=== PATIENT | female | born 1950 | race Caucasian/White ===

== ENCOUNTER 2019-11-23 11:24 | Emergency (ER) | payer BC, SELFPAY ==
[2019-11-23 11:29] VITALS: BP 155/64; PULSE 84; RESP 18; TEMP 36.8; O2SAT 100
[2019-11-23 11:35] VITALS: BP 121/79; PULSE 76; RESP 20; TEMP 36.9; O2SAT 98
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
[2019-11-23] MEDS: ONDANSETRON HCL ODT 4 MG TABLET PO (12:03)
[2019-11-23] MEDS: SILVER SULFADIAZINE 1% CR 50 GM JAR (*BKC) 1 APPLIC TOPICAL (12:05)
[2019-11-23] MEDS: TETANUS,DIPHTHERIA,AC PERTUSSIS ADULT (0.5 ML) BOOSTRIX IM (12:05)
[2019-11-23 13:03] VITALS: BP 121/59; PULSE 58; RESP 18; TEMP 36.9; O2SAT 98
== END 2019-11-23 13:04 | disposition home or self-care (01) ==
PROVIDERS: Emergency Provider General Practice
DX: T23.232A Burn of second degree of multiple left fingers (nail), not including thumb, initial encounter (principal); T31.0 Burns involving less than 10% of body surface; Z79.82 Long term (current) use of aspirin; I48.91 Unspecified atrial fibrillation; Z87.440 Personal history of urinary (tract) infections; Z23 Encounter for immunization; X10.2XXA Contact with fats and cooking oils, initial encounter
CPT/HCPCS: 16000; 16020; 90471; 90715; 99283; A9270

== ENCOUNTER 2020-07-26 10:18 | Outpatient (CLI) | payer BC, SELFPAY ==
--- NOTE | ~2020-07-26 | MM_ITS ---
EXAMINATION: MM screening yeimi BI w peyman HISTORY: Screening mammogram TECHNIQUE: Craniocaudal and mediolateral oblique 3-D tomosynthesis images were obtained and synthetic 2-D images were generated. CAD analysis was submitted and interpreted. COMPARISON: 06/17/2019, 06/11/2018, 06/06/2017 bilateral digital screening mammogram examinations BREAST PARENCHYMAL COMPOSITION: There are scattered areas of fibroglandular density. FINDINGS: There is asymmetry in the posterior aspect of the inner medial left breast on CC projection . Diagnostic left mammogram is recommended, with ultrasound if required. Otherwise there is no evidence of suspicious mass, calcification, or architectural distortion to sugg est malignancy in either breast. There has been no suspicious interval change. IMPRESSION: 1. Left breast asymmetry 2. Diagnostic left mammogram is recommended, with ultrasound if required. BI-RADS Category 0: Incomplete: Needs additional imaging evaluation. Reviewed, dictated and finalized at location A.
== END 2020-07-26 10:19 | disposition home or self-care (01) ==
LOC: ANHIMG 10:20
PROVIDERS: PCP Internal Medicine; Visit Provider Obstetrics & Gynecology
DX: Z12.31 Encounter for screening mammogram for malignant neoplasm of breast (principal); R92.8 Other abnormal and inconclusive findings on diagnostic imaging of breast
CPT/HCPCS: 77063; 77067

== ENCOUNTER 2020-08-17 12:09 | Outpatient (CLI) | payer BC, SELFPAY ==
--- NOTE | ~2020-08-17 | MM_ITS ---
EXAMINATION: MM diagnostic mammo unilat LT HISTORY: Left breast asymmetry on screening mammogram TECHNIQUE: Additional 3-D tomosynthesis images of the left breast were performed and synthetic 2-D im ages were generated. CAD analysis was submitted and interpreted. COMPARISON: 06/17/2019, 06/11/2018, 06/06/2017 FINDINGS: No persistent asymmetry is identified with spot compression views of the breast. There is a return to baseline fibroglandular appearance. IMPRESSION: 1. No mammographic evidence of malignancy. 2. Recommend routine screening mammography in one year. BI-RADS Category 1: Negative Reviewed, dictated and finalized at location A. EDICAL MANAGER
== END 2020-08-17 12:10 | disposition home or self-care (01) ==
LOC: ANHIMG 12:13
PROVIDERS: PCP Internal Medicine; Visit Provider Obstetrics & Gynecology
DX: R92.8 Other abnormal and inconclusive findings on diagnostic imaging of breast (principal)
CPT/HCPCS: 77065

== ENCOUNTER 2021-08-09 15:22 | Outpatient (CLI) | payer BC, SELFPAY ==
--- NOTE | ~2021-08-09 | MM_ITS ---
EXAMINATION: MM screening eyimi BI w peyman HISTORY: Screening TECHNIQUE: Craniocaudal and mediolateral oblique 3-D tomosynthesis images were obtained and synthetic 2-D images were generated. CAD analysis was submitted and interpreted. COMPARISON: Comparison to multiple prior studies sequentially, with oldest reviewed study dated 04/04. BREAST PARENCHYMAL COMPOSITION: The breasts are heterogeneously dense, which may obscure small masses . FINDINGS: There is no evidence of suspicious mass, calcification, or architectural distortion to sugg est malignancy in either breast. There has been no suspicious interval change. IMPRESSION: 1. No mammographic evidence of malignancy. 2. Recommend routine screening mammography in one year. BI-RADS Category 1: Negative Reviewed, dictated and finalized at location A.
== END 2021-08-09 15:23 | disposition home or self-care (01) ==
LOC: ANHIMG 15:27
PROVIDERS: PCP Internal Medicine; Visit Provider Obstetrics & Gynecology
DX: Z12.31 Encounter for screening mammogram for malignant neoplasm of breast (principal)
CPT/HCPCS: 77063; 77067

== ENCOUNTER 2021-12-31 11:42 | Emergency (ER) | payer BC, SELFPAY ==
--- NOTE | ~2021-12-31 | CT_ITS ---
EXAMINATION: CT brain wo con DATE: 12/31/2021 12:24 INDICATION: Near syncope. Left-sided ear pressure. Headache and dizziness. Blurred vision. TECHNIQUE: Computed tomography (CT) of the head was performed without intravenous contrast. Sagittal and coronal reconstructions were performed. The mA was adjusted according to patient size. Iterative reconstruction technique was employed. The dose-length product was 605.33 mGy-cm. COMPARISON: None FINDINGS: No acute intracranial hemorrhage, acute infarction or abnormal extra axial fluid collection. Ventricl es are normal and symmetric. No mass/mass effect. The orbits, paranasal sinuses and mastoid air cells are normal. IMPRESSION: 1. Normal aging brain. No acute intracranial process. Reviewed, dictated and finalized at location A.
[2021-12-31 11:44] VITALS: BP 153/86; PULSE 65; RESP 16; TEMP 37; O2SAT 100
[2021-12-31 12:07] VITALS: BP 159/76; PULSE 62; RESP 14; O2SAT 98
--- NOTE | 2021-12-31 12:12 | ECG_ITS ---
Measurements Intervals [place] Rate: 67 P: 7 NE: 144 QRS: -1 QRSD: 92 T: 19 QT: 406 QTc: 429 Interpretive Statements SINUS RHYTHM NORMAL ECG NO PREVIOUS ECG AVAILABLE FOR COMPARISON Electronically Signed On 12-31-2021 13:20:46 CDT by Brooks Maldonado M.D.
--- NOTE | 2021-12-31 12:44 | ED.GENADULT ---
HPI - General Adult General Chief complaint: Unspecified Stated complaint: near syncope Time Seen by Provider: 12/31/21 12:06 Source: patient Mode of arrival: ambulatory Limitations: no limitations History of Present Illness HPI narrative: Patient is a 71-year-old female complaining of on and off near syncopal episode x4 days. Patient states that usually it associated with activity, like this morning she was at the gym and suddenly she felt dizzy. Denies any syncopal episodes. Patient states that she has been having sinus congestion and frontal and maxillary sinus tenderness for the past week. Patient also complaining of left-sided ear pain negative for discharge. Patient denies any headache, speech or visual disturbance, focal weakness or numbness, unsteady gait, chest pain, shortness of breath, abdominal pain, nausea, vomiting, diarrhea, fever or chills. Patient currently denies any symptoms. Patient states that she had a carotid ultrasound within the past few years. Patient also states that she recently had an echo done. Prior to discharge patient just mentioned that while working out she did hit the back of her head on work-up bar 4 to 5 days ago. Related Data Home Medications Medication Instructions Recorded Confirmed alprazolam 0.5 mg PO PRN 11/23/19 11/23/19 aspirin [Aspirin Low Dose] 81 mg PO DAILY 11/23/19 11/23/19 diltiazem HCl [Cartia XT] 180 mg PO DAILY 11/23/19 11/23/19 doxycycline monohydrate 100 mg PO BID 11/23/19 11/23/19 flecainide 50 mg PO DAILY 11/23/19 11/23/19 lisinopril 10 mg PO DAILY 11/23/19 11/23/19 Allergies Allergy/AdvReac Type Severity Reaction Status Date / Time adhesive Allergy Mild Redness of Verified 11/23/19 11:56 Skin ciprofloxacin Allergy Unknown Palpitation Verified 11/23/19 11:57 s clarithromycin Allergy Unknown Palpitation Verified 11/23/19 11:56 s metronidazole Allergy Unknown Palpitation Verified 11/23/19 11:57 s amiodarone Allergy Dizziness Verified 12/31/21 12:10 prednisone Allergy Palpitation Verified 12/31/21 12:11 s morphine AdvReac Mild SEVERE Verified 01/23/19 18:24 NAUSEA AND VOMITING Review of Systems Review of Systems: All systems reviewed & are unremarkable except as noted in HPI and below Constitutional: Constitutional: Denies body ache(s), Denies chills, Denies excessive sweating, Denies fatigue, Denies fever(s), Denies headache(s), Denies lethargy, Denies malaise, Denies weakness and Denies weight loss Eyes: Eyes: Denies blurry vision, Denies change in vision and Denies loss of vision ENT: Denies dizziness, Denies ear discharge, Denies headache(s), Denies lip swelling, Denies epistaxis, Denies nasal congestion, Denies neck pain, Denies throat swelling and Denies tongue swelling Cardiovascular: Cardiovascular: Denies chest pain, Denies chest pain at rest, Denies chest pain with activity, Denies diaphoresis, Denies rapid heart rate, Denies edema, Denies irregular heart rhythm, Denies lightheadedness, Denies palpitations, Denies dyspnea and Denies dyspnea on exertion Respiratory: Respiratory: Denies chest congestion, Denies cough, Denies hemoptysis, Denies dyspnea and Denies dyspnea on exertion Gastrointestinal: Gastrointestinal: Denies abdominal pain, Denies melena, Denies hematochezia, Denies diarrhea, Denies nausea, Denies vomiting and Denies hematemesis Musculoskeletal: Musculoskeletal: Denies abnormal gait, Denies deformity, Denies joint swelling, Denies limited range of motion, Denies neck pain and Denies numbness Neurologic: Denies Abnormal speech present, Denies abnormal gait, Denies confusion, Denies headache(s), Denies focal weakness, Denies loss of vision, Denies numbness, Denies Other visual disturbances, Denies Sensory deficit (Neuro) and Denies weakness Psychiatric: Psychiatric: Denies confusion, Denies depression, Denies auditory hallucinations, Denies homicidal ideation and Denies suicidal ideation Endocrine: Endocrine:
[2021-12-31 13:12] LABS: Basophils Absolute Auto 0.1 K/mm3 (0.0-0.1); Basophils Percent Auto 1.1 % (0.2-1.2); Eosinophils Percent Auto 0.4 % (0-4.4); Hematocrit 45.2 % (37.0-47.0); Hemoglobin 14.5 g/dL (12.0-15.0); Immature Granulocyte Absolute 0.02 K/mm3 (0.00-0.031); Immature Granulocyte Percent A 0.4 % (0-0.5); Lymphocytes Percent Auto 30.4 % (18.3-44.2); Mean Corpuscular HGB Conc 32.1 g/dl (32-36); Mean Corpuscular Hemoglobin 30.7 pg (26-34); Mean Corpuscular Volume 95.8 fl (80-100); Mean Platelet Volume 10.3 fl (7.4-10.4); Monocytes Absolute Auto 0.4 K/mm3 (0.1-0.6); Monocytes Percent Auto 7.8 % (2.6-8.5); Neutrophils Absolute Auto 2.8 K/mm3 (1.3-6.7); Neutrophils Percent Auto 59.9 % (45.5-73.1); Platelet Count Result 210 k/mm3 (150-375); Red Blood Count 4.72 M/mm3 (4.2-5.4); Red Cell Distribution Width 12.5 % (11.5-14.5); White Blood Count 4.6 K/mm3 (4.5-10.0)
[2021-12-31 13:27] LABS: INR 0.9
[2021-12-31 13:28] LABS: Partial Thromboplastin Time 27.2 SECONDS (22.3-36.8)
[2021-12-31 13:32] LABS: Alanine Aminotransferase 25 U/L (4-35); Albumin Level 4.6 g/dL (3.5-5.1); Alkaline Phosphatase 138 U/L (38-126); Anion Gap 7 mmol/L (8-16); Aspartate Amino Transferase 32 U/L (14-36); Bilirubin,Total 0.6 mg/dL (0.2-1.3); Blood Urea Nitrogen 10 mg/dL (7-17); Calcium 9.4 mg/dL (8.4-10.2); Carbon Dioxide 28 mmol/L (22-30); Chloride 105 mmol/L (98-107); Estimated CRCL calculation 64 ml/min; Estimated Glomerular Filt Rate > 60; Glucose 117 mg/dL (65-110); Potassium 3.9 mmol/L (3.4-5.0); Sodium 140 mmol/L (137-145)
[2021-12-31 13:43] LABS: Troponin I < 0.012 ng/mL (0.000-0.034)
[2021-12-31 14:12] VITALS: BP 164/79; PULSE 61
[2021-12-31 14:13] VITALS: BP 182/90; PULSE 64
[2021-12-31 14:15] VITALS: BP 186/112; PULSE 86
[2021-12-31] MEDS: SODIUM CHLORIDE 0.9% IV 1,000 ML 999 ML IV CONT (14:55)
[2021-12-31 15:29] VITALS: BP 176/82
== END 2021-12-31 15:35 | disposition home or self-care (01) ==
PROVIDERS: Emergency Provider Emergency Medicine; PCP Internal Medicine
DX: S06.0X0A Concussion without loss of consciousness, initial encounter (principal); R42 Dizziness and giddiness; I48.91 Unspecified atrial fibrillation; F41.9 Anxiety disorder, unspecified; Z87.440 Personal history of urinary (tract) infections; W22.8XXA Striking against or struck by other objects, initial encounter
CPT/HCPCS: 36415; 70450; 80053; 84484; 85025; 85610; 85730; 93005; 96360; 99284; J7030

== ENCOUNTER 2022-10-02 10:07 | Outpatient (CLI) | payer BC, SELFPAY ==
--- NOTE | ~2022-10-02 | MM_ITS ---
EXAMINATION: MM screening yeimi BI w peyman HISTORY: Screening mammogram TECHNIQUE: Craniocaudal and mediolateral oblique 3-D tomosynthesis images were obtained and synthetic 2-D images were generated. CAD analysis was submitted and interpreted. COMPARISON: 08/2021, 08/17/2020, 07/26/2020 bilateral screening mammogram examinations BREAST PARENCHYMAL COMPOSITION: There are scattered areas of fibroglandular density. FINDINGS: There is no evidence of suspicious mass, calcification, or architectural distortion to sugg est malignancy in either breast. There has been no suspicious interval change. IMPRESSION: 1. No mammographic evidence of malignancy. 2. Recommend routine screening mammography in one year. BI-RADS Category 1: Negative Reviewed, dictated and finalized at location A. MINER BLASTING
== END 2022-10-02 10:08 | disposition home or self-care (01) ==
LOC: ANHIMG 10:08
PROVIDERS: PCP Internal Medicine; Visit Provider Obstetrics & Gynecology
DX: Z12.31 Encounter for screening mammogram for malignant neoplasm of breast (principal)
CPT/HCPCS: 77063; 77067

== ENCOUNTER 2022-10-15 18:18 | Emergency (ER) | payer BC, SELFPAY ==
[2022-10-15 18:47] VITALS: BP 220/100; PULSE 88; RESP 18; TEMP 36.4; O2SAT 100
[2022-10-15 18:57] VITALS: BP 155/90; PULSE 73; O2SAT 97
[2022-10-15 19:55] VITALS: BP 150/79; PULSE 71; RESP 16; O2SAT 100
--- NOTE | 2022-10-15 19:57 | ECG_ITS ---
Measurements Intervals [place] Rate: 80 P: 41 CT: 166 QRS: -11 QRSD: 85 T: 8 QT: 368 QTc: 426 Interpretive Statements SINUS RHYTHM LEFT VENTRICULAR HYPERTROPHY BASELINE ARTIFACT- I, II, AVR BORDERLINE ECG COMPARED TO ECG 12/31/2021 12:39:14 NO SIGNIFICANT CHANGES Electronically Signed On 10-16-2022 7:54:16 AUTOMOTIVE SERVICE MANAGEMENT TEACHER by Donavon Sin D.O.
[2022-10-15 20:14] LABS: Basophils Percent Auto 0.5 % (0.2-1.2); Eosinophils Percent Auto 0.5 % (0-4.4); Hematocrit 43.6 % (37.0-47.0); Hemoglobin 14.2 g/dL (12.0-15.0); Immature Granulocyte Absolute 0.03 K/mm3 (0.00-0.031); Immature Granulocyte Percent A 0.5 % (0-0.5); Lymphocytes Absolute Auto 1.51 K/mm3 (0.9-3.2); Lymphocytes Percent Auto 27.2 % (18.3-44.2); Mean Corpuscular HGB Conc 32.6 g/dl (32-36); Mean Corpuscular Hemoglobin 31.2 pg (26-34); Mean Corpuscular Volume 95.8 fl (80-100); Mean Platelet Volume 9.9 fl (7.4-10.4); Monocytes Absolute Auto 0.5 K/mm3 (0.1-0.6); Monocytes Percent Auto 8.6 % (2.6-8.5); Neutrophils Absolute Auto 3.5 K/mm3 (1.3-6.7); Neutrophils Percent Auto 62.7 % (45.5-73.1); Platelet Count Result 224 k/mm3 (150-375); Red Blood Count 4.55 M/mm3 (4.2-5.4); Red Cell Distribution Width 12.6 % (11.5-14.5); White Blood Count 5.6 K/mm3 (4.5-10.0)
[2022-10-15 20:29] LABS: Anion Gap 7 mmol/L (8-16); Blood Urea Nitrogen 16 mg/dL (7-17); Calcium 9.4 mg/dL (8.4-10.2); Carbon Dioxide 29 mmol/L (22-30); Chloride 106 mmol/L (98-107); Estimated CRCL calculation 63 ml/min; Estimated Glomerular Filt Rate > 60; Glucose 102 mg/dL (65-110); Potassium 4.2 mmol/L (3.4-5.0); Sodium 142 mmol/L (137-145)
--- NOTE | 2022-10-15 20:29 | ED.RECABL ---
HPI - Recheck/Abnormal Lab/Rx General Chief Complaint: Recheck/Abnormal Lab/Rx Stated Complaint: ELEVATED BP Time Seen by Provider: 10/15/22 19:06 History of Present Illness HPI narrative: Patient is a 72-year-old female with a history of A. fib status post ablation, hypertension presenting with high blood pressure. Patient states that she started feeling funny earlier this evening so she became concerned that her blood pressure was high. She tried to measure her blood pressure at home but the cuff would not work. States that she became concerned that it was so high that it could not read it. States that she took her Xanax and drink some water and focused on her breathing to try to calm herself down. Unfortunately, she continued to feel funny and her blood pressure cuff would not measure her blood pressures so they came in for evaluation. Currently, the patient states that she feels fine. She denies any episodes of chest pain, shortness of breath, palpitations, lightheadedness, numbness or weakness, speech changes, confusion. Related Data Home Medications Medication Instructions Recorded Confirmed alprazolam 0.5 mg tablet 0.5 mg PO PRN 11/23/19 06/04/22 aspirin 81 mg tablet,delayed 81 mg PO DAILY 11/23/19 06/04/22 release (Alanna Low Dose Aspirin) diltiazem HCl 180 mg 180 mg PO DAILY 11/23/19 06/04/22 capsule,extended release 24 hr (Cartia XT) flecainide 50 mg tablet 50 mg PO DAILY 11/23/19 06/04/22 lisinopril 10 mg tablet 10 mg PO DAILY 11/23/19 06/04/22 Allergies Allergy/AdvReac Type Severity Reaction Status Date / Time adhesive Allergy Mild Redness of Verified 10/15/22 19:01 Skin ciprofloxacin Allergy Unknown Palpitation Verified 10/15/22 19:01 s clarithromycin Allergy Unknown Palpitation Verified 10/15/22 19:01 s metronidazole Allergy Unknown Palpitation Verified 10/15/22 19:01 s amiodarone Allergy Dizziness Verified 10/15/22 19:01 prednisone Allergy Palpitation Verified 10/15/22 19:01 s morphine AdvReac Mild SEVERE Verified 10/15/22 19:01 NAUSEA AND VOMITING Review of Systems Review of Systems: All systems reviewed & are unremarkable except as noted in HPI and below PMFSH Past Medical History Medical History A-fib Anxiety Breast lesion Diverticulitis Hernia Hx of long-term use of blood thinners aspirin 81mg Hypertension Screening mammogram, encounter for Seasonal allergies UTI (urinary tract infection) Surgical History Surgical History H/O foot surgery bilateral H/O hernia repair (~1980) double hernia repair History of breast biopsy 2000 benign 2006 benign, foreign object removed (wire from needle bx in 200) 2008 benign History of cardiac radiofrequency ablation (~2012) x2 History of cholecystectomy History of tubal ligation (~1980) Hx of section x2 Family History Family History Mother Malignant tumor of ovary Malignant tumor of thyroid gland Cirrhosis of liver Social History Social History Smoking status: Never smoker Alcohol intake: never Substance use: never Substance use type: does not use Additional living arrangements comments: Gender identity (if verbalized by the patient): Female Sexual Orientation (if Verbalized by the Patient): Straight or Heterosexual Exam Narrative: GENERAL: Well-appearing, well-nourished, and in no acute distress. HEAD: Normocephalic, atraumatic. EYES: PERRLA and EOMI. ENT: Nares clear, no rhinorrhea or epistaxis. Mucous membranes moist. NECK: Supple. CHEST: Clear to auscultation. No respiratory distress. HEART: Regular rate and rhythm. No murmur heard. Normal peripheral pulses. ABDOMEN: Soft, nontender, nondistended, normal active bowel sound
[2022-10-15 20:41] LABS: Troponin I < 0.012 ng/mL (0.000-0.034)
== END 2022-10-15 22:00 | disposition home or self-care (01) ==
PROVIDERS: Emergency Provider Emergency Medicine; PCP Internal Medicine
DX: I10 Essential (primary) hypertension (principal); I48.91 Unspecified atrial fibrillation; F41.9 Anxiety disorder, unspecified; Z79.01 Long term (current) use of anticoagulants
CPT/HCPCS: 36415; 80048; 84484; 85025; 93005; 99284

== ENCOUNTER 2022-11-03 18:50 | Emergency (ER) | payer BC, SELFPAY ==
[2022-11-03] VITALS (8 sets, daily range): BP systolic 152; BP diastolic 74; PULSE 90; RESP 18; TEMP 37.2; O2SAT 95–100
--- NOTE | ~2022-11-03 | CT_ITS ---
EXAMINATION: CT abdomen pelvis w con DATE: 11/03/2022 23:31 INDICATION: Left lower quadrant abdominal pain. TECHNIQUE: Computed tomography (CT) of the abdomen and pelvis was performed with 100 mL Omnipaque 350 intravenous contrast. Automated exposure control and iterative reconstruction technique were employe d. The dose-length product was 1099.49 mGy-cm. COMPARISON: CT abdomen and pelvis 01/23/2019 FINDINGS: The visualized portions of the lung bases demonstrate mild atelectasis. No pleural effusion . The heart size is normal. No pericardial effusion. There is a small sliding hiatal hernia. The live r, spleen, pancreas, adrenal glands, and kidneys are normal. There are scattered diverticula in the c olon. There is wall thickening of proximal sigmoid colon with fat stranding centered around a diverti culum, consistent with diverticulitis. There are no dilated loops of bowel. The appendix is normal. T here are no pathologically enlarged lymph nodes. There is no free intraperitoneal fluid. There is mod erate thoracic and lumbar spondylosis. IMPRESSION: 1. Acute sigmoid diverticulitis. No perforation or abscess. Reviewed, dictated and finalized at location A. [employer]
[2022-11-03 21:52] LABS: Basophils Percent Auto 0.4 % (0.2-1.2); Eosinophils Percent Auto 0.2 % (0-4.4); Hematocrit 40.9 % (37.0-47.0); Hemoglobin 13.6 g/dL (12.0-15.0); Immature Granulocyte Absolute 0.03 K/mm3 (0.00-0.031); Immature Granulocyte Percent A 0.3 % (0-0.5); Lymphocytes Absolute Auto 2.34 K/mm3 (0.9-3.2); Lymphocytes Percent Auto 26.3 % (18.3-44.2); Mean Corpuscular HGB Conc 33.3 g/dl (32-36); Mean Corpuscular Hemoglobin 31.9 pg (26-34); Mean Platelet Volume 11.6 fl (7.4-10.4); Monocytes Absolute Auto 1.1 K/mm3 (0.1-0.6); Monocytes Percent Auto 11.8 % (2.6-8.5); Neutrophils Absolute Auto 5.4 K/mm3 (1.3-6.7); Platelet Count Result 262 k/mm3 (150-375); Red Blood Count 4.26 M/mm3 (4.2-5.4); Red Cell Distribution Width 13.1 % (11.5-14.5); White Blood Count 8.9 K/mm3 (4.5-10.0)
[2022-11-03 22:01] LABS: Appearance Urine Clear (Clear); Bilirubin Urine Negative (Negative); Blood Urine Negative (Negative); Color Urine Yellow (Yellow); Glucose Urine UA Negative (Negative); Ketones Urine Negative (Negative); Leukocyte Esterase Ur Trace LEU/UL (Negative); Nitrate Urine Negative (Negative); Protein Urine Negative (Negative); Specific Grav Ur <= 1.005 (1.001-1.035); Urobilinogen Urine 0.2 mg/dL (<2.0); pH Urine 5.5 (5.0-9.0)
--- NOTE | 2022-11-03 22:02 | ED.ABDPAIN ---
HPI - Abdominal Pain General Chief Complaint: Abdominal Pain Stated Complaint: abdominal cramping Time Seen by Provider: 11/03/22 21:31 History of Present Illness HPI narrative: 72-year-old female presented to the emergency department for evaluation of left lower quadrant pain. Patient reports that the pain started last night. Patient reports that approximately 2:30 AM when she was rolling over she had onset of a sharp left lower quadrant pain. Patient did take Tylenol for pain control without significant improvement. Patient stated the pain was persistent throughout the day today. Patient denies any prior history of kidney stones and denies any hematuria. Patient reports having a colonoscopy recently by Dr. Shepard at [facility] in August. Patient states she had no evidence of diverticular disease or polyps. Related Data Home Medications Medication Instructions Recorded Confirmed alprazolam 0.5 mg tablet 0.5 mg PO PRN 11/23/19 06/04/22 aspirin 81 mg tablet,delayed 81 mg PO DAILY 11/23/19 06/04/22 release (Alanna Low Dose Aspirin) diltiazem HCl 180 mg 180 mg PO DAILY 11/23/19 06/04/22 capsule,extended release 24 hr (Cartia XT) flecainide 50 mg tablet 50 mg PO DAILY 11/23/19 06/04/22 lisinopril 10 mg tablet 10 mg PO DAILY 11/23/19 06/04/22 Allergies Allergy/AdvReac Type Severity Reaction Status Date / Time adhesive Allergy Mild Redness of Verified 10/15/22 19:01 Skin ciprofloxacin Allergy Unknown Palpitation Verified 10/15/22 19:01 s clarithromycin Allergy Unknown Palpitation Verified 10/15/22 19:01 s metronidazole Allergy Unknown Palpitation Verified 10/15/22 19:01 s amiodarone Allergy Dizziness Verified 10/15/22 19:01 prednisone Allergy Palpitation Verified 10/15/22 19:01 s morphine AdvReac Mild SEVERE Verified 10/15/22 19:01 NAUSEA AND VOMITING Review of Systems Review of Systems: CONSTITUTIONAL: Denies fever, chills, or sweats. EYES: Denies visual changes, redness, or discharge. ENT: Denies rhinorrhea, congestion, sore throat, or otalgia. CARDIOVASCULAR: Denies chest pain, palpitations, or edema. RESPIRATORY: Denies cough or dyspnea. GASTROINTESTINAL: See HPI GENITOURINARY: Denies dysuria or hematuria. SKIN: Denies rash or itching. MUSCULOSKELETAL: Denies back pain, joint pain, or myalgia. NEUROLOGIC: Denies headache, numbness, or weakness. PMFSH Past Medical History Medical History A-fib Anxiety Breast lesion Diverticulitis Hernia Hx of group home use of blood thinners aspirin 81mg Hypertension Screening mammogram, encounter for Seasonal allergies UTI (urinary tract infection) Surgical History Surgical History H/O foot surgery bilateral H/O hernia repair (~1980) double hernia repair History of breast biopsy 1999 benign 2006 benign, foreign object removed (wire from needle bx in 200) 2008 benign History of cardiac radiofrequency ablation (~2012) x2 History of cholecystectomy History of tubal ligation (~1980) Hx of section x2 Family History Family History Mother Malignant tumor of ovary Malignant tumor of thyroid gland Cirrhosis of liver Social History Social History Smoking status: Never smoker Alcohol intake: never Substance use: never Substance use type: does not use Living arrangements: other Additional living arrangements comments: Occupation/Education: retired Gender identity (if verbalized by the patient): Female Sexual Orientation (if Verbalized by the Patient): Straight or Heterosexual Exam Narrative: APPEARANCE: Well appearing, no pain, no distress, well-nourished. HEAD: normocephalic, atraumatic. EYES: PERRLA/EOMI, conjunctivae clear. NOSE: Normal no
[2022-11-03 22:07] LABS: RBC Urine 0-2 /hpf (0-2); Squamous Epithelial Cell Urine Rare /hpf (Few); WBC Urine 0-3 /hpf
[2022-11-03 22:08] LABS: Add Urine Microscopic? YES
[2022-11-03 22:36] LABS: Alanine Aminotransferase 85 U/L (6-35); Albumin Level 4.1 g/dL (3.5-5.1); Alkaline Phosphatase 143 U/L (38-126); Anion Gap 6 mmol/L (8-16); Aspartate Amino Transferase 82 U/L (14-36); Bilirubin,Total 0.9 mg/dL (0.2-1.3); Blood Urea Nitrogen 16 mg/dL (7-17); Calcium 8.8 mg/dL (8.4-10.2); Carbon Dioxide 28 mmol/L (22-30); Chloride 105 mmol/L (98-107); Estimated Glomerular Filt Rate > 60; Glucose 99 mg/dL (65-110); Lipase 122 U/L (23-300); Sodium 139 mmol/L (137-145)
[2022-11-04] VITALS: PULSE 82; O2SAT 96
[2022-11-04] MEDS: AMOXICILLIN/CLAVULANATE K 875-125 MG TAB 1 TABLET PO
== END 2022-11-04 00:10 | disposition home or self-care (01) ==
PROVIDERS: Emergency Provider Emergency Medicine; PCP Internal Medicine
DX: K57.32 Diverticulitis of large intestine without perforation or abscess without bleeding (principal); I48.91 Unspecified atrial fibrillation; I10 Essential (primary) hypertension; F41.9 Anxiety disorder, unspecified; Z87.440 Personal history of urinary (tract) infections; Z79.82 Long term (current) use of aspirin
CPT/HCPCS: 36415; 74177; 80053; 81001; 83690; 85025; 96365; 99284; A9270; J0131; Q9967

== ENCOUNTER 2024-01-09 14:28 | Outpatient (CLI) | payer BC, SELFPAY ==
--- NOTE | ~2024-01-09 | MM_ITS ---
EXAMINATION: MM screening yeimi BI w peyman HISTORY: Screening TECHNIQUE: Craniocaudal and mediolateral oblique 3-D tomosynthesis images were obtained and synthetic 2-D images were generated. CAD analysis was submitted and interpreted. COMPARISON: Comparison to multiple prior studies sequentially, with oldest reviewed study dated 03/2018. BREAST PARENCHYMAL COMPOSITION: Dense: The breasts are heterogeneously dense, which may obscure small masses FINDINGS: There is no evidence of suspicious mass, calcification, or architectural distortion to sugg est malignancy in either breast. There has been no suspicious interval change. IMPRESSION: 1. No mammographic evidence of malignancy. 2. Recommend routine screening mammography in one year. BI-RADS Category 1: Negative Reviewed, dictated and finalized at location A.
== END 2024-01-09 14:29 | disposition home or self-care (01) ==
LOC: ANHIMG 14:32
PROVIDERS: PCP Internal Medicine; Visit Provider Obstetrics & Gynecology
DX: Z12.31 Encounter for screening mammogram for malignant neoplasm of breast (principal); Z78.0 Asymptomatic menopausal state
CPT/HCPCS: 77063; 77067

== ENCOUNTER 2024-01-09 14:40 | Outpatient (CLI) | payer BC, SELFPAY ==
--- NOTE | ~2024-01-09 | DEXA_ITS ---
Bone Density Report Name: NGOZI MCGHEE Age: 73 Sex: Female Ethnicity: White Date of : 1950 Indication: postmenopausal; screening for osteoporosis; height loss; history of glucocorticoids; Referring Provider: UNKNOWN, UNKNOWN Study: Bone densitometry was performed. Exam Date: January 09, 2024 Accession number: [id number] Bone Density: Region BMD T-score Z-score Classification AP Spine(L1-L4) 1.117 0.6 2.8 Normal Femoral Neck (Left) 0.783 -0.6 1.3 Normal Total Hip (Left) 1.047 0.9 2.4 Normal Femoral Neck (Right) 0.876 0.2 2.1 Normal Total Hip (Right) 1.087 1.2 2.8 Normal Total Hip Mean 1.067 1.1 2.6 Normal World Health Organization criteria for BMD impression classify patients as: Normal (T-score at or above -1.0), Osteopenia (T-score between -1.0 and -2.5), or Osteoporosis (T-score at or below -2.5). 10-year Fracture Risk: FRAX not reported because: All T-scores for Spine Total, Hip Total, Femoral Neck at or above -1.0 Clinical Information Provided by Patient: Has taken Glucocorticoids Has used the following medications: Vitamin D, Calcium Patient maximum height was 64.5 Menopause Age: 40 Onset of menses at age 13 Number of children 2 Impression: The patient has normal bone mass. The patient has risk factors, including: history of glucocorticoid therapy. Discussion: BONE DENSITY IS ABOVE THE MINIMUM DESIRABLE LEVEL AT ALL SKELETAL SITES TESTED. This patient?s bone mineral density is above the minimum desirable level (T-score -1.0 or better) at all sites measured. The patient should follow a healthful lifestyle (good nutrition with adequate calcium and vitamin D, and appropriate weight-bearing exercise). Follow-Up: Consider repeating this study in 5 years or sooner if there is some new clinical indication. Reported by: LAURENT on 01/09/2024 3:28:00 PM. Reviewed, dictated and finalized at location AAura VU
== END 2024-01-09 14:41 | disposition home or self-care (01) ==
LOC: ANHIMG 14:40
PROVIDERS: PCP Internal Medicine; Visit Provider Internal Medicine
DX: Z13.820 Encounter for screening for osteoporosis (principal); R29.890 Loss of height; Z78.0 Asymptomatic menopausal state; Z92.241 Personal history of systemic steroid therapy
CPT/HCPCS: 77080

== ENCOUNTER 2024-02-09 22:19 | Emergency (ER) | payer BC, SELFPAY ==
[2024-02-09 22:21] VITALS: BP 152/74; PULSE 74; RESP 16; TEMP 36.4; O2SAT 99
--- NOTE | 2024-02-09 22:27 | ECG_ITS ---
SEE SCANNED COPY FOR CONFIRMED REPORT MTDD
--- NOTE | 2024-02-10 00:38 | PC.NURSE ---
Pt approached triage desk and states she is going home.
== END 2024-02-10 00:53 | disposition left against medical advice (07) ==
LOC: ANHED 02-10 00:51
PROVIDERS: Emergency Provider Emergency Medicine; PCP Internal Medicine
DX: R55 Syncope and collapse (principal)
CPT/HCPCS: 93005; 99199

== ENCOUNTER 2025-02-07 21:55 | Emergency (ER) | payer BC, SELFPAY ==
--- NOTE | ~2025-02-07 | XR_ITS ---
CHEST RADIOGRAPH CLINICAL HISTORY: shortness of breath, afib . COMPARISON: None available TECHNIQUE: Single portable view of the chest. FINDINGS The cardiomediastinal silhouette is unremarkable. The lungs are clear. IMPRESSION: No focal infiltrate or effusion. Reviewed, dictated and finalized at location A.
[2025-02-07 21:56] VITALS: BP 145/105; PULSE 165; RESP 20; O2SAT 95
--- OUTSIDE RECORDS SUMMARY | 2025-02-07 21:57 | XMS_ITS | Clinical Summary ---
Author Organization [facility] Address Formerly [facility] [place] [address] Care Team Providers Care College Counselor Name Role Phone Scotty Shepard MD Primary Care Provider [phone] Allergies Active Allergy Reactions Criticality Noted Date Comments Prednisone Unknown 09/18/2023 Tape Rash Low 09/18/2023 Medications lisinopril (PRINIVIL) 10 MG tablet Take 1 tablet (10 mg total) by mouth daily. Active dilTIAZem (CARDIZEM) 30 MG tablet Take 1 tablet (30 mg total) by mouth 2 (two) times a day. Active rivaroxaban (XARELTO) 20 MG Tab tablet Take by mouth daily with supper. Take with food Active ALPRAZolam (XANAX OR) Take by mouth as needed. Active DOCUSATE SODIUM RE Place rectally as needed. Active cetirizine (ZYRTEC) 5 MG tablet Take 1 tablet (5 mg total) by mouth daily. Active Active Problems No known active problems Social History Tobacco Use Types Packs/Day Years Used Date Smoking Tobacco: Never Smokeless Tobacco: Never Tobacco Cessation:Counseling Given: Not Answered Alcohol Use Standard Drinks/Week Comments Not Currently 0 (1 standard drink = 0.6 oz pur e alcohol) Comments Unknown Sex and Gender Information Value Date Recorded Sex Assigned at Not on file Legal Sex Female 8:28 PM CDT Gender Identity Not on file Sexual Orientation Not on file Last Filed Vital Signs Vital Sign Reading Time Taken Comments Blood Pressure 146/89 09/23/2023 12:41 PM P[employer]DER [employer] TESTER Pulse 81 09/23/2023 12:25 PM [employer] Temperature 36.8 C (98.2 F) 09/23/2023 12:25 PM [employer] TESTER Respiratory Rate 20 09/23/2023 12:41 PM P[employer] TESTER Oxygen Saturation 94% 09/23/2023 12:41 PM P[employer] C[employer] TESTER Inhaled Oxygen Concentration - - Weight 97.5 kg (215 lb) 09/18/2023 4:49 PM [employer] TE[employer] Height 165.1 cm (5' 5 ) 09/18/2023 4:49 PM [employer] TE[employer] Body Mass Index 35.78 09/18/2023 4:49 PM [employer] TESTER Plan of Treatment Health Maintenance Due Date Last Done Comments Colorectal Cancer Screening Colonoscopy (10 Years) 1950 Hepatitis C 1970 Mammogram Screening 1992 Zoster Vaccines (1 of 2) 2002 Dexa Scan (General) 2017 Pneumococcal Vaccine: 50+ Years (3 of 3 - PCV20 or PCV21) 08/15/2022 08/15/2017, 10/10/2016 COVID-19 Vaccine (2 - 2023-2 5 season) 2024 02/08/2021 RSV Immunization or 60+ Years (1 - 1-dose 75+ series) 2027 DTaP, Tdap and Td Vaccines ( 3 - Td or Tdap) 11/23/2029 11/23/2019, 05/04/2013 Meningococcal B Vaccine Aged Out No l onger eligible based on patient's age to complete this topic Meningococcal Vaccine Aged Out No nicole cirilo eligible based on patient's age to complete this topic RSV Immunizations Under 20 Months Aged Out No longer eligible b ased on patient's age to complete this topic Insurance [facility] Care Teams College Counselor Relationship Specialty Start Date End Date Scotty Shepard MD [address] [address] PCP - General INTERNAL MEDICINE 09/23/23
--- OUTSIDE RECORDS SUMMARY | 2025-02-07 21:57 | XMS_ITS | CONTINUITY OF CARE DOCUMENT ---
Author Name frank, frank Address Unknown Organization [facility] Address [address] [address] [place] [address] Phone [phone] Care Team Providers Care Revenue Coordinator Name Role Phone Donte MONREAL, Macario Unavailable FRAN DYE MD Unavailable FRAN DYE MD Unavailable PROBLEMS Condition Status Date Provider Notes Hx of sick sinus syndrome (SSS) active Macario Kent MD Anxiety active Macario Kent MD (His tory of) CHEST PAIN, NON-CARDIAC active Roz cruz MD PALPITATIONS active ? Roz Bob MD OBESITY active ? Roz Bob MD SVT S/P ABLATION 11/18 active Kody Lujan dberg DIZZINESS active Macario Kent MD SHORTNESS OF BREATH active Macario quinonez MD ATRIAL FIB PAROXYSMAL-05/18 EVENT MX- SR HR 44-96 completed - Macario Kent MD Atrial fib paroxysmal - in NSR Holter 10/22 active Kody Stuart Atrial flutter S/P ablation 10/18 active Kody Stuart Arthritis active Jeremy Pantoja HTN active Jeremy Pantoja Coronavirus infection 09/2020 active Blanka Macario Fatigue active Blanka Macario Carotid bruit, bilateral active Blanka Macario Sinus drainage active Fidel Sy ENCOUNTERS Date Type Provider Location Encounter Diag nosis - In-person encounter Office Visit Macario Kent MD [facility] - In-person encounter Office Visit Macario Kent MD [facility] - In-person encounter Office Visit Macario Kent MD [facility] - In-person encounter Office Visit Macario Kent MD [facility] - In-person encounter Office Visit Macario Kent MD [facility] Sinus drainage - In-person encounter Office Visit Macario Kent MD [facility] Carotid bruit, bilateral - In-person encounter Office Visit Macario Kent MD [facility] - In-person encounter Office Visit Macario Kent MD [facility] - In-person encounter Office Visit Macario Kent MD [facility] Coronavirus infection 09/2020Fatigue - In-person encounter Office Visit Macario Kent MD [facility] - In-person encounter Office Visit Macario Kent MD [facility] ArthritisHTN - In-person encounter Office Visit Macario Kent MD [facility] - In-person encounter Office Visit Macario Kent MD [facility] SVT S/P ABLATION 11/18Atrial fib paroxysmal - in NSR Holter trial flutter S/P ablation 10/18 - In-person encounter Office Visit Macario Kent MD [facility] Atrial fib paroxysmal - in NSR Holter trial flutter S/P ablation 10/18 - In-person encounter Office Visit Macario Kent MD [facility] Atrial fib paroxysmal - in NSR Holter 10/22 - In-person encounter Office Visit Macario Kent MD [facility] Atrial fib paroxysmal - in NSR Holter trial flutter S/P ablation 10/18 - In-person encounter Office Visit Macario Kent MD [facility] - In-person encounter Office Visit Macario Kent MD [facility] - In-person encounter Office Visit Macario Kent MD [facility] - In-person encounter Office Visit Macario Kent MD [place] ATRIAL FIB PAROXYSMAL-05/18 EVENT MX- SR HR 44-96 - In-person encounter Office Visit Macario Kent MD [facility] - In-person encounter Office Visit Macario Kent MD [facility] - In-person encounter Office Visit Macario Kent MD [facility] - In-person encounter Office Visit Macario Kent MD [place] SHORTNESS OF BREATH - In-person encounter Office Visit Cristhian Edmond MD [facility] SVT S/P ABLATION 11/18 - In-person encounter Office Visit Macario Kent MD [facility] SVT S/P ABLATION 11/18DIZZINESS - In-person encounter Office Visit Roz Bob MD [facility] CHEST PAIN, NON-CARDIACPALPITATI ONSOBESITY VITAL SIGNS Date Observation Value Provider Body Mass Index (Ratio) 38.08 kg/m2 Fidel Sy blood pressure, diastolic 82 mm[Hg] Joan nkLogic blood pressure, systolic 146 mm[Hg] Opal kLogic pulse rate 79 /min Yasmany y blood pressure, cuff size regular Ja rret blood pressure, diastolic 82 mm[Hg] Ja rret blood pressure, systolic 146 mm[Hg] Jenny ret oxygen saturation, oximetry 95 % Yasmany respiratory rate E&M 14 /min Yasmany weight E&M 215 [lb_av] Yasmany y height E&M 63 [in_i] Yasmany y blood pressure, cuff size regular Ke rri Gruenenfelder blood pressure, diastolic 86 mm[Hg] Ke rri Gruenenfelder blood pressure, systolic 142 mm[Hg] Ker ri Gruenenfelder oxygen saturation, oximetry 98 % Sharita Gruenenfelder respiratory rate E&M 12 /min Sharita G ruenenfelder pulse rate 81 /min Sharita Gruenenfe lder height E&M 63 [in_i] Sharita Gruenenfe lder blood pressure, cuff size regular Ke rri Gruenenfelder blood pressure, diastolic 100 mm[Hg] Ke rri Gruenenfelder blood pressure, systolic 170 mm[Hg] Ker ri Gruenenfelder oxygen saturation, oximetry 98 % Sharita Gruenenfelder respiratory rate E&M 12 /min Sharita G ruenenfelder pulse rate 70 /min Sharita Gruenenfe lder height E&M 63 [in_i] Sharita Gruenenfe lder blood pressure, cuff size large Ke rri Gruenenfelder blood pressure, diastolic 92 mm[Hg] Ke rri Gruenenfelder blood pressure, systolic 158 mm[Hg] Debi ri Gruenenfelder oxygen saturation, oximetry 97 % Sharita Gruenenfelder respiratory rate E&M 16 /min Sharita G ruenenfelder pulse rate 61 /min Sharita Gruenenfe lder height E&M 63 [in_i] Sharita Gruenenfe er Body Mass Index (Ratio) 34.89 kg/m2 Fidel De Pazmedzai blood pressure, diastolic 101 mm[Hg] Li nkLogic blood pressure, systolic 166 mm[Hg] Opal kLogic oxygen saturation, oximetry 96 % Sharita Grshelbynenfelder blood pressure, cuff size large Ke rri Gruenenfelder blood pressure, diastolic 101 mm[Hg] Ke rri Gruenenfelder blood pressure, systolic 166 mm[Hg] Debi ri Gruenenfelder respiratory rate E&M 16 /min Sharita G eduardenenfelder pulse rate 72 /min Sharita Grshelbynenfe er weight E&M 197 [lb_av] Sharita Gruenenfe er height E&M 63 [in_i] Sharita Gruenenfe er Body Mass Index (Ratio) 33.65 kg/m2 Taew on Renaldo blood pressure, cuff size large La paolo [place] blood pressure, diastolic 76 mm[Hg] La paolo Evon blood pressure, systolic 139 mm[Hg] Norris diazda [place] oxygen saturation, oximetry 95 % Lucero [place] respiratory rate E&M 18 /min Ligia brito Evon pulse rate 67 /min Lucero [place] weight E&M 190 [lb_av] Lucero [place] height E&M 63 [in_i] Lucero Spearsden Body Mass Index (Ratio) 39.85 kg/m2 Taew on Renaldo blood pressure, cuff size large Ke rri Jorge Luisuenenfvermont state hospitaler blood pressure, diastolic 74 mm[Hg] Ke rri uenenfvermont state hospitaler blood pressure, systolic 142 mm[Hg] Debi ri Taljeanetheast [facility] oxygen saturation, oximetry 95 % Sharita Kangcarlos manueljeanetheast [facility] respiratory rate E&M 16 /min Sharita pino pulse rate 64 /min Sharita April [facility] weight E&M 225 [lb_av] Sharita Rodrígueze [facility] height E&M 63 [in_i] Sharita Jorge Luisandraee [facility] Body Mass Index (Ratio) 37.37 kg/m2 Taew on Renaldo blood pressure, cuff size regular Kr isnorberto Erika blood pressure, diastolic 78 mm[Hg] Kr isty Erika blood pressure, systolic 150 mm[Hg] Kri stpanchito [place] oxygen saturation, oximetry 97 % Fadumo [place] pulse rate 90 /min Fadumo Erika respiratory rate E&M 20 /min Fadumo Erika weight E&M 211 [lb_av] Fadumo Erika height E&M 63 [in_i] Fadumo [place] height E&M 63 [in_i] Wellington Fredote blood pressure, resting Yes Kill een Kent blood pressure, diastolic 80 mm[Hg] Amadou le Kent blood pressure, systolic 120 mm[Hg] Brian augustin Kent oxygen saturation, oximetry 98 % Harvey Kent respiratory rate E&M 16 /min Jen Kent pulse rate 77 /min Jen Kent height E&M 63 [in_i] Jen Kent Body Mass Index (Ratio) 39.32 kg/m2 Sam Pantoja blood pressure, cuff size large Ke rri Gruenenfvermont state hospitaler blood pressure, diastolic 90 mm[Hg] Ke rri Gruenenfelder blood pressure, systolic 130 mm[Hg] Debi ri Talnfvermont state hospitaler oxygen saturation, oximetry 96 % Sharita Lee respiratory rate E&M 20 /min Sharita pino pulse rate 77 /min Sharita April er weight E&M 222 [lb_av] Sharita Grshelbynenfe er height E&M 63 [in_i] Sharita Grshelbynenfe er Body Mass Index (Ratio) 38.26 kg/m2 Nick Kent MD blood pressure, diastolic 78 mm[Hg] Da radha Temi blood pressure, systolic 120 mm[Hg] Dac ia Temi oxygen saturation, oximetry 96 % Susana Temi respiratory rate E&M 20 /min Susana V oss pulse rate 80 /min Susana Temi weight E&M 216 [lb_av] Susana Temi height E&M 63 [in_i] Susana Temi Body Mass Index (Ratio) 39.14 kg/m2 Thony Stuart blood pressure, diastolic 88 mm[Hg] Torrey Sanders blood pressure, systolic 151 mm[Hg] Janny Sanders oxygen saturation, oximetry 94 % Gerson Sanders respiratory rate E&M 18 /min Jorge Sanders pulse rate 88 /min Gerson hightower weight E&M 221 [lb_av] Gerson hightower height E&M 63 [in_i] Gerson Escamilla stacey blood pressure, diastolic 82 mm[Hg] Me diaz Anguiano blood pressure, systolic 143 mm[Hg] Tona eid Anguiano pulse rate 88 /min Nanda Anguiano oxygen saturation, oximetry 97 % Nanda Anguiano respiratory rate E&M 15 /min Nanda Anguiano Body Mass Index (Ratio) 38.97 kg/m2 Deedee munoz Anguiano weight E&M 220 [lb_av] Nanda Anguiano blood pressure, diastolic 96 mm[Hg] Torrey Sanders blood pressure, systolic 149 mm[Hg] Janny Sanders Body Mass Index (Ratio) 38.61 kg/m2 Meme Sanders weight E&M 218 [lb_av] Gerson Escamilla stacey pulse rate 92 /min Gerson hightower oxygen saturation, oximetry 98 % Gerson Sanders respiratory rate E&M 18 /min Jorge Sanders blood pressure, diastolic 96 mm[Hg] Ta dwaine Regan blood pressure, systolic 151 mm[Hg] Trejo ica Regan Body Mass Index (Ratio) 39.14 kg/m2 Greta jeyson Spears pulse rate 89 /min Venita Regan oxygen saturation, oximetry 98 % Venita Regan respiratory rate E&M 16 /min Venita Regan weight E&M 221 [lb_av] Venita Regan Body Mass Index (Ratio) 39.29 kg/m2 Danny Howard blood pressure, diastolic 86 mm[Hg] Luis elizondo Lee blood pressure, systolic 146 mm[Hg] Debi hammonds Lee pulse rate 94 /min Sharita Jorge Luisgonzález lder oxygen saturation, oximetry 97 % Sharita Lee respiratory rate E&M 15 /min Sharita Iqbal odette weight E&M 221 [lb_av] Sharita Annedyana lder blood pressure, diastolic 90 mm[Hg] Daniel Rhodes RN blood pressure, systolic 146 mm[Hg] Simone Rhodes RN pulse rate 82 /min Simone Rhodes RN oxygen saturation, oximetry 98 % Simone Rhodes RN respiratory rate E&M 16 /min Simone fam RN Body Mass Index (Ratio) 35.45 kg/m2 Simone Rhodes RN weight E&M 199.4 [lb_av] Simone Rhodes RN blood pressure, diastolic 87 mm[Hg] Daniel Rhodes RN blood pressure, systolic 145 mm[Hg] Simone Rhodes RN pulse rate 79 /min Simone Rhodes RN oxygen saturation, oximetry 99 % Simone Alvarezs RN respiratory rate E&M 16 /min Simone fam RN Body Mass Index (Ratio) 34.63 kg/m2 Simone Alvarezs RN weight E&M 194.8 [lb_av] Simone Rhodes RN Body Mass Index (Ratio) 33.43 kg/m2 Hammad Rosado blood pressure, diastolic 82 mm[Hg] Pratt blood pressure, systolic 120 mm[Hg] Jarred Rosado pulse rate 71 /min Gonzalo Rosado oxygen saturation, oximetry 99 % Gonzalo Rosado respiratory rate E&M 16 /min Gonzalo Rosado weight E&M 188.06 [lb_av] Gonzalo Andrear an blood pressure, diastolic 92 mm[Hg] Daniel Rhodes RN blood pressure, systolic 150 mm[Hg] Simone Rhodes RN pulse rate 79 /min Simone Rhodes RN oxygen saturation, oximetry 97 % Simone Rhodes RN respiratory rate E&M 18 /min Simone fam RN weight E&M 187 [lb_av] Simone Rhodes RN blood pressure, diastolic 94 mm[Hg] Daniel Rhodes RN blood pressure, systolic 161 mm[Hg] Simone Rhodes RN pulse rate 66 /min Simone Rhodes RN oxygen saturation, oximetry 97 % Simone Rhodes RN respiratory rate E&M 18 /min Simone fam RN Body Mass Index (Ratio) 33.60 kg/m2 Simone Rhodes RN weight E&M 189 [lb_av] Simone Rhodes RN Body Mass Index (Ratio) 33.42 kg/m2 Delgado i Lee blood pressure, diastolic 82 mm[Hg] Luis Howard blood pressure, systolic 129 mm[Hg] Debi Howard pulse rate 74 /min Sharita rowleyer oxygen saturation, oximetry 99 % Sharita Howard respiratory rate E&M 17 /min Sharita pino weight E&M 188 [lb_av] Sharita Chen lder blood pressure, diastolic 95 mm[Hg] Daniel Rhodes RN blood pressure, systolic 151 mm[Hg] Simone Rhodes RN pulse rate 82 /min Simone Rhodes RN oxygen saturation, oximetry 97 % Simone Rhodes RN respiratory rate E&M 17 /min Simone fam RN weight E&M 188 [lb_av] Simone Rhodes RN Body Mass Index (Ratio) 34.13 kg/m2 Delgado i Lee blood pressure, diastolic 93 mm[Hg] Ke rri Lee blood pressure, systolic 148 mm[Hg] Debi hammonds Lee pulse rate 83 /min Sharita April rowleyer oxygen saturation, oximetry 99 % Sharita Lee respiratory rate E&M 17 /min Sharita G odette weight E&M 192 [lb_av] Sharita April rowleyer height E&M 63 [in_i] Sharita April rowleyer Body Mass Index (Ratio) 32.46 kg/m2 Hammad Rosado blood pressure, diastolic, left arm 101 m m[Hg] Gonzalo Rosado blood pressure, systolic, left arm 148 mm [Hg] Gonzalo Rosado blood pressure, diastolic, right arm 105 mm[Hg] Gonzalo Rosado blood pressure, systolic, right arm 150 m m[Hg] Gonzalo Rosado blood pressure, diastolic 101 mm[Hg] Pratt blood pressure, systolic 148 mm[Hg] Jarred Rosado pulse rate 70 /min Gonzalo Rosado oxygen saturation, oximetry 99 % Gonzalo Rosado respiratory rate E&M 18 /min Gonzalo Rosado weight E&M 194.38 [lb_av] Gonzalo bae height E&M 65 [in_i] Gonzalo Rosado Body Mass Index (Ratio) 33.82 kg/m2 Hammad Rosado blood pressure, diastolic, left arm 97 mm [Hg] Gonzalo Rosado blood pressure, systolic, left arm 155 mm [Hg] Gonzalo Rosado blood pressure, diastolic, right arm 99 m m[Hg] Gonzalo Andrearan blood pressure, systolic, right arm 151 m m[Hg] Gonzalo Andrearan blood pressure, diastolic 97 mm[Hg] Abdiran blood pressure, systolic 155 mm[Hg] Jarred Andrearan pulse rate 71 /min Gonzalo Andrearan oxygen saturation, oximetry 98 % Gonzalo Andrearan respiratory rate E&M 16 /min Gonzalo Andrearan weight E&M 193.25 [lb_av] Gonzalo Andrear an height E&M 63.5 [in_i] Gonzalo Andrearan ALLERGIES Allergy Name Onset Date Reaction Criticality Status BIAXIN Low Criticality active RESULTS Date Observation Value Provider Reference Range Interpretation Location free thyroxine index 2.2 Link[facility] 1.2-4.9 triiodothyronine resin uptake 25 % Link[facility] 24-39 thyroxine, serum, total 8.7 ug/dL Link[facility] 4.5-12.0 thyroid stimulating hormone, serum 2.370 u[IU]/mL [facility] 0.450-4.500 lipoprotein, beta, serum, point, quantitative, calculated 158 mg/dL [facility] 0-99 High HDL cholesterol, serum 65 mg/dL Link[facility] >39 triglyceride, serum, random 150 mg/dL Link[facility] 0-149 High cholesterol, serum 250 mg/dL [facility] 100-199 High platelet count 232 X10E3/UL [facility] 423-058 6826/06 /05 red blood cell distribution width 13.0 % [facility] 11.7-15.4 mean corpuscular hemoglobin concentration, RBC 32.7 G/DL [facility] 31.5-35.7 mean corpuscular hemoglobin, RBC 30.6 pg [facility] 26.6-33.0 mean corpuscular volume, RBC 94 fL [facility] 79-97 hematocrit, blood 43.1 % [facility] 34.0-46.6 hemoglobin, blood 14.1 g/dL [facility] 11.1-15.9 erythrocyte (RBC) count 4.61 X10E6/UL [facility] 3.77-5.28 leukocyte count, blood 4.9 X10E3/UL [facility] 3.4-10.8 alanine aminotransferase (SGPT), serum 26 1/L [facility] 0-32 aspartate aminotransferase (SGOT), serum 25 1/L [facility] 0-40 alkaline phosphatase, serum 115 1/L [facility] 48-121 bilirubin, serum, total 0.4 mg/dL [facility] 0.0-1.2 albumin/globulin ratio, serum 2.1 [facility] 1.2-2.2 globulin, serum 2.3 [facility] 1.5-4.5 albumin, serum 4.9 g/dL [facility] 3.8-4.8 High protein, total, serum 7.2 g/dL [facility] 6.0-8.5 calcium, serum 9.5 mg/dL [facility] 8.7-10.3 carbon dioxide, venous blood 25 mmol/L [facility] 20-29 chloride, serum 105 mmol/L [facility] 96-106 potassium, serum 4.9 mmol/L [facility] 3.5-5.2 sodium, serum 142 mmol/L [facility] 814-477 3211/06 /05 urea nitrogen/creatinine ratio, serum 16 Link[facility] 12-28 eGFR if 77 mL/min/{1 .73_m2} LinkLogic >59 eGFR if not 67 mL/min/{1 .73_m2} LinkLogic >59 creatinine, serum 0.89 mg/dL Link[facility] 0.57-1.00 urea nitrogen, blood 14 mg/dL Link[facility] 8-27 blood glucose, random 117 mg/dL [facility] 65-99 High coagulation managed by Simone Rhodes RN prothrombin time (patient) 14.1 s Simone Rhodes RN international normalized ratio (INR) 1.4 Simone Rhodes RN Normal platelet count 247 10*3/mm3 [facility], blood 47.3 % [facility] alanine aminotransferase (SGPT), serum 45 1/L [facility] aspartate aminotransferase (SGOT), serum 26 1/L [facility] creatinine, serum 1.13 mg/dL [facility] potassium, serum 4.0 mmol/L [facility] sodium, serum 147 mmol/L [facility] prothrombin time (patient) 25.1 s Sharita Howard international normalized ratio (INR) 2.5 Sharita Howard Normal coagulation managed by Simone Rhodes RN prothrombin time (patient) 36.8 s Anjum Brunomartin international normalized ratio (INR) 3.7 [facility] prothrombin time (patient) 30.4 s Sharita Peraltaer international normalized ratio (INR) 3.0 Sharita Howard Normal platelet count 230 10*3/uL Jarredetrchristian Toure hematocrit, blood 45.7 % [facility] creatinine, serum 0.75 mg/dL [facility] potassium, serum 4.9 mmol/L [facility] sodium, serum 145 mmol/L [facility] coagulation managed by Simone Rhodes RN prothrombin time (patient) 21.7 s Simone Carmelo RN international normalized ratio (INR) 2.2 Simone Rhodes RN Normal platelet count 230 10*3/mm3 Melchor Toure hematocrit, blood 45.7 % Melchor Toure coagulation managed by Simone Rhodes RN prothrombin time (patient) 17.7 s Simone Rhodes RN international normalized ratio (INR) 1.8 Simone Rhodes RN Normal coagulation managed by Simone Rhodes RN prothrombin time (patient) 29.7 s Simone Rhodes RN international normalized ratio (INR) 3.0 Simone Rhodes RN Normal coagulation managed by Simone Rhodes RN prothrombin time (patient) 19.7 s Gonzalo Rosado international normalized ratio (INR) 2.0 Gonzalo Rosado Normal coagulation managed by Simone Rhodes RN prothrombin time (patient) 15.2 s Simone Rhodes RN international normalized ratio (INR) 1.5 Simone Rhodes RN Normal platelet count 235 10*3/mm3 Melchor Toure hematocrit, blood 47.9 % Melchor Toure thyroid stimulating hormone, serum 1.740 u[IU]/mL Melchor Toure alanine aminotransferase (SGPT), serum 63 1/L Melchor Toure aspartate aminotransferase (SGOT), serum 36 1/L Melchor Toure creatinine, serum 0.77 mg/dL Melchor Toure potassium, serum 4.0 mmol/L Melchor Toure sodium, serum 145 mmol/L Melchor Toure HISTORY OF MEDICATION USE Medication Status Instructions Dates Provider Indications Com nica diltiazem HCl 30 mg tablet active TAKE 1 TABLET TWICE A DAY Katerina Daly flecainide 50 mg tablet active Take 1 tablet by mouth twice a day Sharita Gruenenfelder Eliquis 5 mg tablet active Take 1 tablet by mouth twice a day for 90 days Macario Kent MD flecainide 50 mg tablet completed 1 tablet by mouth twice a day - Sharita Howard magnesium oxide 400 mg (241.3 mg magnesium) tablet active TAKE 1 TABLET BY MOUTH EVERY DAY Maxine Dwyer NP Xarelto 20 mg tablet completed one tab daily - Macario Kent MD Xarelto 20 mg tablet completed - Simone Rhodes RN diltiazem HCl 30 mg tablet completed Take 1 tablet by mouth twice a day - Katerina Daly Atrial fib paroxysmal - in NSR Holter 10/22 levofloxacin 500 mg tablet completed Take 1 tablet by mouth once a day for 1 weeks - Maxine Dwyer NP lisinopril 10 mg tablet active Take 1 tablet by mouth once a day Katerina Felicianoia XT 180 mg capsule,extended release 24hr completed Take 1 capsule by mouth every night - Colleen Howard RN flecainide 50 mg tablet completed TAKE 1 TABLET TWICE A DAY - Fidel Sy acetaminophen 500 mg tablet active as needed Sharita Howard Zyrtec 10 mg capsule completed as needed - Fidel Ahmedzai METRONIDAZOLE 500 MG ORAL TABLET completed 1 tab twice daily - Gerson Sanders CIPRO 500 MG ORAL TABLET completed 1 tab twice daily - Gerson Sanders [facility] FISH OIL CAPSULE completed take one pill a day - Venitapura Spears BIOTIN CAPSULE completed daily - Venitapura Spears CALCIUM 600+D TABLET completed daily - Venitapura Spears FISH OIL CAPSULE completed 1000mg ONE TAB. DAILY - Simone Rhodes RN MULTIVITAMINS ORAL CAPSULE completed ONE TAB. DAILY - Venita Spears flecainide 50 mg tablet completed Take 1 tablet twice a day - Solomon Ortiz CARDIZEM 60 MG ORAL TABLET completed one tab every 8 hrs for 2 days then as needed - Sohailkathia Chavira XT 180 mg capsule,extended release 24hr completed Take 1 capsule every night - Patrizia Carrion NP ASPIRIN 81 MG ORAL TABLET completed 1 tablet once a day - Maxine Dwyer NP DIGOXIN 125 MCG ORAL TABLET completed take one a day - Simone Rhodes RN DILTIAZEM HCL 60 MG ORAL TABLET completed take one pill 3 times a day - Simone Rhodes RN AMIODARONE HCL 400 MG ORAL TABLET completed take one half pill a day. - Sharita Howard lisinopril 10 mg tablet completed Take 1 tablet once a day - Jojo Luke WARFARIN SODIUM 5 MG ORAL TABLET completed 1 tablet daily - Simone Rhodes RN METOPROLOL TARTRATE 25 MG ORAL TABLET completed 1/2 tablet by mouth every 6 hours - Sharita Howard alprazolam 0.5 mg tablet active Take 1 twice a day as needed Sharita Howard SOCIAL HISTORY Date Observation Value Provider drug use none Fidel Sy alcohol use no Fidel Sy passive cigarette sm paula exposure no Fidel Sy smoking, year quit 1986 Fidel koenig number of years as a smoker 5-9 Fidel Sy smoking history, tot al pack/year 12 Fidel Sy smoking history, tot al pack/day 1/2 ppd Fidel Sy cigarette use yes Fidel De Pazmedmeliza smoking status Former smoker Fidel Núñez i drug use none Maxine Henningzulay r [employer] alcohol use no Maxine Henningzulay r [employer] passive cigarette sm paula exposure no Maxine Henningzulayr [employer] smoking, year quit 1986 Maxine Henningzulayr [employer] number of years as a smoker 5-9 Maxine Henningzulayr [employer] smoking history, tot al pack/year 12 Maxine Henningzulayr [employer] smoking history, tot al pack/day 1/2 ppd Maxine Henningzulayr [employer] cigarette use yes Maxine Henningdaria er [employer] smoking status Former smoker Maxine Henning dariaer [employer] Exercise counseling Yes Maxine Henningezekiel [employer] social history reviewed E&M revi ewed - no changes required Fidel Sy social history reviewed E&M revi ewed - no changes required Fidel Sy social history E&M Marital Statu s: L luis with family/friends E thnicity: m other recently 2019 Smoking History: Zeke sher is a former smoker. Fidel Sy social history reviewed E&M revi ewed - no changes required Fidel Sy number of years as a smoker 5-9 Sharita Howard smoking history, tot al pack/day 1/2 ppd Sharita Howard smoking, year quit 1986 Sharita smith cigarette use yes Sharita castillo exercise type gym Sharita castillo caffeine use, averag e drinks per day 0 /d Sharita Howard passive cigarette sm paula exposure no Sharita Howard smoking status Former smoker Sharita cuevas social history E&M Marital Statu s: L luis with family/friends E thnicity: m other recently 2019 Smoking History: P christos has never smoked. Blanka Macario social history reviewed E&M revi ewed - no changes required Blanka Macario exercise type gym Sharita castillo caffeine use, averag e drinks per day 0 /d Sharita Howard passive cigarette sm paula exposure no Sharita Howard smoking status Never smoker Sharita garland social history E&M Marital Statu s: L luis with family/friends E thnicity: Smoking History: Zeke sher has never smoked. mother recently 2019 Blanka Macario social history reviewed E&M revi ewed - no changes required Blanka Macario exercise type gym [employer] caffeine use, averag e drinks per day 0 /d [employer] passive cigarette sm paula exposure no [employer] smoking status Never smoker [employer] social history reviewed E&M revi ewed - no changes required Ari Bhandari exercise type gym [facility] alcohol use no [facility] caffeine use, averag e drinks per day 0 /d [facility] drug use none [facility] passive cigarette sm paula exposure no [facility] smoking status Never smoker [facility] number of grandchildren Macario Pantoja social history reviewed E&M revi ewed - no changes required Jermey Pantoja social history E&M Marital Statu s: L luis with family/friends E thnicity: Smoking History: P christos has never smoked. Jeremy Pantoja exercise type gym Sharita castillo alcohol use no Sharita Chen lder caffeine use, averag e drinks per day 0 /d Sharita Peraltaer drug use none Sharita Chen lder passive cigarette sm paula exposure no Sharita Howard smoking status Never smoker Sharita Vicente gill social history E&M Marital Statu s: L luis with family/friends E thnicity: Smoking History: P christos has never smoked. Macario Kent MD social history reviewed E&M revi ewed - no changes required Macario Kent MD exercise type gym Susana Temi alcohol use no Susana Temi caffeine use, averag e drinks per day 0 /d Susana Temi drug use none Susana Temi passive cigarette sm paula exposure no Susana Temi smoking status Never smoker Susana Temi social history E&M Marital Statu s: L luis with family/friends E thnicity: Smoking History: Zeke sher has never smoked. Kody Stuart social history reviewed E&M revi ewed - no changes required Kody Stuart exercise type gym Gerson banks alcohol use no Gerson Andi katja caffeine use, averag e drinks per day 0 /d Gerson Sanders drug use none Gerson Escamilla katja passive cigarette sm paula exposure no GersonCarolyn Sanders smoking status Never smoker Gersonmiquel Wallace social history reviewed E&M revi ewed - no changes required Macario Kent MD social history E&M Marital Statu s: L luis with family/friends E thnicity: Smoking History: Zeke sher has never smoked. Macario Kent MD exercise type gym Nanda Anguiano alcohol use no Nanda Anguiano caffeine use, averag e drinks per day 0 /d Nanda Anguiano drug use none Nanda Anguiano passive cigarette sm paula exposure no Nanda Anguiano smoking status Never smoker Nanda Barry n social history E&M Marital Statu s: L luis with family/friends E thnicity: Zeke sher has never smoked. Smoking History: Zeke sher has never smoked. Macario Kent MD social history reviewed E&M revi ewed - no changes required Macario Kent MD exercise type gym Gerson alejandrostacey caffeine use, averag e drinks per day 0 /d Gerson Sanders drug use none Gerson Escamilla katja passive cigarette sm paula exposure no Gerson Sanders smoking status Never smoker Macario palacio MD social history reviewed E&M inga ewed - no changes required Macario Kent MD social history reviewed E&M reviewed Simone Rhodes RN social history reviewed E&M reviewed Simone Rhodes RN social history reviewed E&M reviewed Simone Rhodes RN social history reviewed E&M reviewed Simone Rhodes RN social history reviewed E&M reviewed Simone Rhodes RN social history reviewed E&M reviewed Simone Rhodes RN social history reviewed E&M reviewed Macario Kent MD smoking/tobacco cess ation, patient education and counseling yes Macario Kent MD social history reviewed E&M reviewed Simone Rhodes RN social history E&M Marital Statu s: L luis with family/friends E thnicity: Simone Rhodes RN social history reviewed E&M reviewed Simone Rhodes RN social history E&M Marital Status: Marrie d Macario Kent MD social history reviewed E&M reviewed Macario Kent MD exercise type gym Gonzalo lafleur drug use none Macario salvador MD passive cigarette sm paula exposure no Gonzalo Rosado smoking status never smoker Gonzalo bae social history E&M Marital Statu s: L luis with family/friends E thnicity: Simone Rhodes RN social history reviewed E&M reviewed Simone Rhodes RN caffeine use, averag e drinks per day 0 /d Gonzalo Rosado drug use no Gonzalo Rosado passive cigarette sm paula exposure no Gonzalo Rosado smoking history, tot al pack/year Gonzalo Rosado smoking, year quit 1986 Gonzalo burgos smoking status former smoker Gonzalo delgado MENTAL STATUS Date Observation Value Provider assessment of judgme nt and insight E&M depressed affect and anxious. Simone Rhodes RN assessment of judgme nt and insight E&M depressed affect and anxious. Simone Rhodes RN assessment of judgme nt and insight E&M depressed affect and anxious. Simone Rhodes RN assessment of judgme nt and insight E&M depressed affect and anxious. Simone Rhodes RN assessment of judgme nt and insight E&M depressed affect and anxious. Macario Kent MD assessment of judgme nt and insight E&M Alert and oriented to time, place and person. Mood and affect are normal. Simone Rhodes RN assessment of judgme nt and insight E&M Alert and oriented to time, place and person. Mood and affect are normal. Macario Kent MD assessment of judgme nt and insight E&M Alert and oriented to time, place and person. Mood and affect are normal. Simone Rhodes RN assessment of judgme nt and insight E&M Alert and oriented to time, place and person. Mood and affect are normal. Cristhian Edmond MD assessment of judgme nt and insight E&M Alert and oriented to time, place and person. Mood and affect are normal. Macario Kent MD assessment of judgme nt and insight E&M Alert and oriented to time, place and person. Mood and affect are normal. Simone Rhodes RN FAMILY HISTORY Family Member Condition Mother Family History of Hy pertension: INSURANCE PROVIDERS Payer name Policy type / Coverage type [place] red green party ID [facility] [id number] ADVANCE DIRECTIVES Name Date DISCUSSED - NO DECISION MADE TREATMENT PLAN Date Name Performer [id number],W, Macario arzate MD [id number],W, Reviewed monitor results s evere side effects to FlecainideHarman does not recoment long acting diltiazem for treatment of arrhythmia SUMMARY s top flecainide and Diltiazem extended release start diltiazem 60 mg PO TID S UMMARY s top flecainide and Diltiazem extended release start diltiazem 60 mg PO TID patient will call tomorrow and will talk to JACK Nichols or other nurse Zeke dias on taking warfarin or NOAC Total time spend in management this patient care > [address] kent time Her updated medication list for this problem includes: Diltiazem Hcl 60 Mg Tablet (Diltiazem hcl) ..... Take 1 tablet by mouth twice a day stop flecainide and diltiazem extended release Lisinopril 10 Mg Tablet (Lisinopril) ..... Take 1 tablet daily Macario Kent MD [id number],W, Reviewed monitor results s evere side effects to FlecainideHarman does not recoment long acting diltiazem for treatment of arrhythmia SUMMARY s top flecainide and Diltiazem extended release start diltiazem 60 mg PO TID SUMMARY s top flecainide and Diltiazem extended release start diltiazem 60 mg PO TID patient will call tomorrow and will talk to RN Simone or other nurse P christos matt larissa on taking warfarin or NOAC Total time spend in management this patient care > [address] kent time M ONITOR results min HR 42,max HR 170bpm- A.fib/RVR-cannot Rx tach without pacer Her updated medication list for this problem includes: Diltiazem Hcl 60 Mg Tablet (Diltiazem hcl) ..... Take 1 tablet by mouth twice a day stop flecainide and diltiazem extended release Lisinopril 10 Mg Tablet (Lisinopril) ..... Take 1 tablet daily Macario Kent MD [id number],C,A dvised her to monitor her BP at home for now, reduce sodium intake. She says her BP has been better controlled at home. BP today: 170/100 P rior BP: 158/92 (10/25/2022) Labs Reviewed: C reat: 0.89 (03/10/2021) C hol: 250 (03/10/2021) HDL: 65 (03/10/2021) Fidel medzai [id number],S, Fidel medza i [id number],C, N o CP Fidel Ahmedzai [id number],C, C linically compensated Fidel medzai [id number],C, i n Sinus rhythm She thinks she is experiencing AFIB episodes and palpitations. Will increase his Flecainide to 100 mg BID to better control of HR and these episodes. If she cannot tolerate increased dose of Flecainide, will consdier Tikosyn. W ill check holter at this time Fidel Ahmedzai [id number],C,Improved Fidel Ahmedzai [id number],C,No new episod es Fidel medzai [id number],C, C linically compensated Fidel Ahmedzai [id number],C,P robably due to her anxiety this morning, recommended she monitor it at home. 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 Take 1 tablet twice a day Macario Kent MD [id number],C, H er updated medication list for this problem includes: Lisinopril 10 Mg Tablet (Lisinopril) ..... Take 1 tablet daily Cartia Xt 180 Mg Capsule,extended Release 24hr (Diltiazem hcl) ..... Take 1 capsule by mouth every night Macario Kent MD [id number],W, H er updated medication list for this problem includes: Flecainide 50 Mg Tablet (Flecainide) ..... Take 1 tablet twice a day Lisinopril 10 Mg Tablet (Lisinopril) ..... Take 1 tablet daily Cartia Xt 180 Mg Capsule,extended Release 24hr (Diltiazem hcl) ..... Take 1 capsule by mouth every night Macario Kent MD [id number],W, Macario arzate MD [id number],C, O rders: P carline 21+ (CPT-69784) Macario Kent MD [id number],C, H er updated medication list for this problem includes: Flecainide 50 Mg Tablet (Flecainide) ..... Take 1 tablet twice a day Lisinopril 10 Mg Tablet (Lisinopril) ..... Take 1 tablet daily Cartia Xt 180 Mg Capsule,extended Release 24hr (Diltiazem hcl) ..... Take 1 capsule by mouth every night Orders: P carline 21+ (CPT-60909) S chedule Followup (*) Macario Kent MD [id number],C, H er updated medication list for this problem includes: Flecainide 50 Mg Tablet (Flecainide) ..... Take 1 tablet twice a day Lisinopril 10 Mg Tablet (Lisinopril) ..... Take 1 tablet daily Cartia Xt 180 Mg Capsule,extended Release 24hr (Diltiazem hcl) ..... Take 1 capsule by mouth every night Macario Kent MD [id number],C,W ill send in Levofloxacin and check CT head [facility] [id number],C,No CP [facility] [id number],C,No sxs curren tly [facility] [id number],C, B P today: 166/101 P rior BP: 139/76 (03/08/2022) Labs Reviewed: C reat: 0.89 (03/10/2021) C hol: 250 (03/10/2021) HDL: 65 (03/10/2021) [facility] [id number],C,weight loss a dvised [facility] [id number],C,Clinically co mpensated [facility] [id number],C,S he had a cardiac cath lab manager 04/2022 showing frequent Sinus Bradycardia, frequent Sinus Rhythm and r are Sinus Tachycardia. The patient had rare SVE in the form of isolated beats, couplets and triplets. The patient also had rare VE in the form of isolated beats and c ouplets. The patient also had rare Atrial Fibrillation. Patient slowest heart rate was S inus Bradycardia @ 38bpm, the average heart rate was Sinus Rhythm @ 63bpm a nd the patient fastest heart rate was Sinus Tachycardia @ 102bpm Fidel Núñezrodríguez [id number],S,in 6 months. Patrizia Carrion CASINO CASHIER [id number],S, H er updated medication list for this problem includes: Flecainide 50 Mg Tablet (Flecainide) ..... Take 1 tablet twice a day Lisinopril 10 Mg Tablet (Lisinopril) ..... Take 1 tablet once a day Cartia Xt 180 Mg Capsule,extended Release 24hr (Diltiazem hcl) ..... Take 1 capsule every night Patrizia Carrion CASINO CASHIER [id number],B,down 35 pound s Patrizia Carrion NP [id number],S, H er updated medication list for this problem includes: Lisinopril 10 Mg Tablet (Lisinopril) ..... Take 1 tablet once a day Cartia Xt 180 Mg Capsule,extended Release 24hr (Diltiazem hcl) ..... Take 1 capsule every night Patrizia Carrion NP [id number],B,i n NSR today. Her updated medication list for this problem includes: Flecainide 50 Mg Tablet (Flecainide) ..... Take 1 tablet twice a day Patrizia Carrion NP [id number],S, a ntibodies positive in 03/2021 E ncouraged her to get COVID vaccination as it has been 3 months. E xtensive discussion was done regarding COVID vaccine. Some of her hesitation comes from reported adverse reactions to vaccine in her family. After discussion she is giving it more consideration however still undecided. Blanka Macario [id number],B, d ietary sodium restriction and exercise advised. B P today: 142/74 P rior BP: 150/78 (03/09/2021) Labs Reviewed: C reat: 0.89 (03/10/2021) C hol: 250 (03/10/2021) HDL: 65 (03/10/2021) Her updated medication list for this problem includes: Lisinopril 10 Mg Tablet (Lisinopril) ..... Take 1 tablet once a day Cartia Xt 180 Mg Capsule,extended Release 24hr (Diltiazem hcl) ..... Take 1 capsule every night Orders: C omplete Echo (CPT-31833) A teo Duplex Ultrasound (CPT-14991) Blanka Macario [id number],C, s till has palpitations H er updated medication list for this problem includes: Lisinopril 10 Mg Tablet (Lisinopril) ..... Take 1 tablet once a day Cartia Xt 180 Mg Capsule,extended Release 24hr (Diltiazem hcl) ..... Take 1 capsule every night Flecainide 50 Mg Tablet (Flecainide) ..... Take 1 tablet twice a day Orders: E KG (CPT-27417) H olter Monitor 48 hr (CPT-23302) Blanka Macario [id number],W, p alpitations Orders: M onitor - Telemetry (Mobile Cardiac) (CPT-72563) Her updated medication list for this problem includes: Lisinopril Tabs 10mg (Lisinopril) ..... Take 1 tablet daily Aspirin 81 Mg Oral Tablet (Aspirin) ..... One tab. daily Diltiazem Hcl Er(cartia Xt)cp 180mg (Diltiazem hcl coated beads) ..... Take 1 capsule at bedtime Flecainide Acet Tabs 50mg (Flecainide acetate) ..... Take 1 tablet twice a day Blanka Macario [id number],C, a ntibodies positive in 03/2021 E ncouraged her to get COVID vaccination as it has been 3 months. Blanka Macario [id number],W, O rders: C OVID19 Rapid POC (CPT-92293) Blanka Macario Telehealth: H er updated medication list for this problem includes: Flecainide 50 Mg Tablet (Flecainide) ..... 1 tablet by mouth twice a day Lisinopril 10 Mg Tablet (Lisinopril) ..... Take 1 tablet daily Diltiazem Hcl 30 Mg Tablet (Diltiazem hcl) ..... Take 1 tablet by mouth twice a day Orders: M inor Telehealth (CPT-33008) Macario Kent MD Electrophysiology Fideltyra Sy Electrophysiology: I azuloved Fidel Sy Electrophysiology:improved since last visit Fidel Sy Electrophysiology:Mo nitor your BP at home, goal BP is <135/85 BP today: 146/82 P rior BP: 142/86 (11/07/2023) Labs Reviewed: C reat: 0.89 (03/10/2021) C hol: 250 (03/10/2021) HDL: 65 (03/10/2021) LDL: 158 (03/10/2021) T (03/10/2021) Her updated medication list for this problem includes: Diltiazem Hcl 30 Mg Tablet (Diltiazem hcl) ..... Take 1 tablet by mouth twice a day Lisinopril 10 Mg Tablet (Lisinopril) ..... Take 1 tablet daily Fidel Sy Electrophysiology:Pt denies any CP or SOB. Echo EF normal 10/2022. 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 r emains on xarelto and diltiazem Maxine Dwyer NP Electrophysiology:Pt states that she has been under a lot of stress lately. In the last month she had a bad head cold, she has has skin cancer removed to shoulder and back. pt had issues with abscesses developed at incision sites. She has not been able to workout at gym. She states that her BP has been as high as 180/92. the last 3 days bp has been better 130's140's/60's70's. today: 142/86. reviewed low salt diet. will add magnesium oxide 400mg daily Maxine Dwyer CASINO CASHIER Electrophysiology:in SR. Her updated medication list for this problem includes: Diltiazem Hcl 30 Mg Tablet (Diltiazem hcl) ..... Take 1 tablet by mouth twice a day Lisinopril 10 Mg Tablet (Lisinopril) ..... Take 1 tablet daily xarelto 20mg saritha Dwyer NP Telehealth-pt will c all tomorrow and will talk to JACK Kent MD Telehealth-pt will c all tomorrow and will talk to JACK Nichols- aristides : Reviewed monitor results s evere side effects to Flecainide D jo-ann kent does not recoment long acting diltiazem for treatment of arrhythmia SUMMARY s top flecainide and Diltiazem extended release start diltiazem 60 mg PO TID S UMMARY s top flecainide and Diltiazem extended release start diltiazem 60 mg PO TID patient will call tomorrow and will talk to JACK Nichols or other nurse Zeke dias on taking warfarin or NOAC Total time spend in management this patient care > [address] kent time Her updated medication list for this problem includes: Diltiazem Hcl 60 Mg Tablet (Diltiazem hcl) ..... Take 1 tablet by mouth twice a day stop flecainide and diltiazem extended release Lisinopril 10 Mg Tablet (Lisinopril) ..... Take 1 tablet daily Macario Kent MD Telehealth-pt will c all tomorrow and will talk to JACK irving : Reviewed monitor results s evere side effects to Flecainide, D r. kalvaitis does not recoment long acting diltiazem for treatment of arrhythmia SUMMARY s top flecainide and Diltiazem extended release start diltiazem 60 mg PO TID SUMMARY s top flecainide and Diltiazem extended release start diltiazem 60 mg PO TID patient will call tomorrow and will talk to JACK Nichols or other nurse P atient would nenefit on taking warfarin or NOAC Total time spend in management this patient care > [address] kent time MONITOR results min HR 42,max HR 170bpm- A.fib/RVR-cannot Rx tach without pacer Her updated medication list for this problem includes: Diltiazem Hcl 60 Mg Tablet (Diltiazem hcl) ..... Take 1 tablet by mouth twice a day stop flecainide and diltiazem extended release Lisinopril 10 Mg Tablet (Lisinopril) ..... Take 1 tablet daily Macario Kent MD Electrophysiology:Ad vised her to monitor her BP at home for now, reduce sodium intake. She says her BP has been better controlled at home. BP today: 170/100 P rior BP: 158/92 (10/25/2022) L abs Reviewed: C reat: 0.89 (03/10/2021) C hol: 250 (03/10/2021) HDL: 65 (03/10/2021) Fidel Sy Electrophysiology Fidel Sy Electrophysiology: N o CP Fidel Sy Electrophysiology: C linically compensated Fidel Sy Electrophysiology: i n Sinus rhythm She thinks she is experiencing AFIB episodes and palpitations. Will increase his Flecainide to 100 mg BID to better control of HR and these episodes. If she cannot tolerate increased dose of Flecainide, will consdier Tikosyn. W ill check holter at this time Fidel Sy Electrophysiology:Improved Fidel Sy Electrophysiology:No new episode s Fidel Sy Electrophysiology: C linically compensated Fidel Núñezrodríguez Electrophysiology:Pr obably due to her anxiety this morning, recommended she monitor it at home. 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 Take 1 tablet twice a day Macario Kent MD Telehealth: H er updated medication list for this problem includes: Lisinopril 10 Mg Tablet (Lisinopril) ..... Take 1 tablet daily Cartia Xt 180 Mg Capsule,extended Release 24hr (Diltiazem hcl) ..... Take 1 capsule by mouth every night Macario Kent MD Telehealth: H er updated medication list for this problem includes: Flecainide 50 Mg Tablet (Flecainide) ..... Take 1 tablet twice a day Lisinopril 10 Mg Tablet (Lisinopril) ..... Take 1 tablet daily Cartia Xt 180 Mg Capsule,extended Release 24hr (Diltiazem hcl) ..... Take 1 capsule by mouth every night Macario Kent MD Telehealth Macario quinonez MD Telehealth: O rders: P carline 21+ (CPT-67708) Macario Kent MD Telehealth: H er updated medication list for this problem includes: Flecainide 50 Mg Tablet (Flecainide) ..... Take 1 tablet twice a day Lisinopril 10 Mg Tablet (Lisinopril) ..... Take 1 tablet daily Cartia Xt 180 Mg Capsule,extended Release 24hr (Diltiazem hcl) ..... Take 1 capsule by mouth every night Orders: P carline 21+ (CPT-14947) S chedule Followup (*) Macario Kent MD Telehealth: H er updated medication list for this problem includes: Flecainide 50 Mg Tablet (Flecainide) ..... Take 1 tablet twice a day Lisinopril 10 Mg Tablet (Lisinopril) ..... Take 1 tablet daily Cartia Xt 180 Mg Capsule,extended Release 24hr (Diltiazem hcl) ..... Take 1 capsule by mouth every night Macario Kent MD Electrophysiology:Wi ll send in Levofloxacin and check CT head Fidel Sy Electrophysiology:No CP Fidel valiente Electrophysiology:No sxs current ly Fidel Sy Electrophysiology: B P today: 166/101 P rior BP: 139/76 (03/08/2022) Labs Reviewed: C reat: 0.89 (03/10/2021) C hol: 250 (03/10/2021) HDL: 65 (03/10/2021) Fidel Sy Electrophysiology:weight loss ad vised Fidel Sy Electrophysiology:Clinically com pensated Fidel Sy Electrophysiology:Sh e had a cardiac cath lab manager 04/2022 showing frequent Sinus Bradycardia, frequent Sinus Rhythm and r are Sinus Tachycardia. The patient had rare SVE in the form of isolated beats, couplets and triplets. The patient also had rare VE in the form of isolated beats and c ouplets. The patient also had rare Atrial Fibrillation. Patient slowest heart rate was S inus Bradycardia @ 38bpm, the average heart rate was Sinus Rhythm @ 63bpm a nd the patient fastest heart rate was Sinus Tachycardia @ 102bpm Fidel Sy Cardiology:in 6 months. Patrizia tripp NP Cardiology: H er updated medication list for this problem includes: Flecainide 50 Mg Tablet (Flecainide) ..... Take 1 tablet twice a day Lisinopril 10 Mg Tablet (Lisinopril) ..... Take 1 tablet once a day Cartia Xt 180 Mg Capsule,extended Release 24hr (Diltiazem hcl) ..... Take 1 capsule every night Patrizia Carrion NILAM Cardiology:down 35 pounds Patrizia Carrion NILAM Cardiology: H er updated medication list for this problem includes: Lisinopril 10 Mg Tablet (Lisinopril) ..... Take 1 tablet once a day Cartia Xt 180 Mg Capsule,extended Release 24hr (Diltiazem hcl) ..... Take 1 capsule every night Patrizia Carrion NILAM Cardiology:in NSR to day. Her updated medication list for this problem includes: Flecainide 50 Mg Tablet (Flecainide) ..... Take 1 tablet twice a day Patrizia Carrion NILAM Electrophysiology: a ntibodies positive in 03/2021 E ncouraged her to get COVID vaccination as it has been 3 months. E xtensive discussion was done regarding COVID vaccine. Some of her hesitation comes from reported adverse reactions to vaccine in her family. After discussion she is giving it more consideration however still undecided. Blanka Macario Electrophysiology: d ietary sodium restriction and exercise advised. B P today: 142/74 P rior BP: 150/78 (03/09/2021) Labs Reviewed: C reat: 0.89 (03/10/2021) C hol: 250 (03/10/2021) HDL: 65 (03/10/2021) Her updated medication list for this problem includes: Lisinopril 10 Mg Tablet (Lisinopril) ..... Take 1 tablet once a day Cartia Xt 180 Mg Capsule,extended Release 24hr (Diltiazem hcl) ..... Take 1 capsule every night Orders: C omplete Echo (CPT-84576) A teo Duplex Ultrasound (CPT-06273) Blanka Macario Electrophysiology: s tate has palpitations H er updated medication list for this problem includes: Lisinopril 10 Mg Tablet (Lisinopril) ..... Take 1 tablet once a day Cartia Xt 180 Mg Capsule,extended Release 24hr (Diltiazem hcl) ..... Take 1 capsule every night Flecainide 50 Mg Tablet (Flecainide) ..... Take 1 tablet twice a day Orders: E KG (CPT-56783) H olter Monitor 48 hr (CPT-59739) Blanka Macario Telehealth: p alpitations Orders: M onitor - Telemetry (Mobile Cardiac) (CPT-24481) Her updated medication list for this problem includes: Lisinopril Tabs 10mg (Lisinopril) ..... Take 1 tablet daily Aspirin 81 Mg Oral Tablet (Aspirin) ..... One tab. daily Diltiazem Hcl Er(cartia Xt)cp 180mg (Diltiazem hcl coated beads) ..... Take 1 capsule at bedtime Flecainide Acet Tabs 50mg (Flecainide acetate) ..... Take 1 tablet twice a day Blanka Macario Telehealth: a ntibodies positive in 03/2021 E ncouraged her to get COVID vaccination as it has been 3 months. Blanka Macario Telehealth: O rders: C OVID19 Rapid POC (CPT-27161) Blanka Macario Electrophysiology 15 : O rders: C OMPREHENSIVE METABOLIC PANEL, W/EGFR (08836) C BC (H/H, RBC, INDICES, WBC, PLT) (1759) L IPID PANEL (7600) T SH, free T4, total T3 (7444) C ortisol (878104) Blanka Macario Electrophysiology 15 : d ietary sodium restriction and exercise advised. B P today: 150/78 P rior BP: 120/80 (04/23/2019) Labs Reviewed: C reat: 1.13 (11/08/2012) Her updated medication list for this problem includes: Lisinopril Tabs 10mg (Lisinopril) ..... Take 1 tablet daily Aspirin 81 Mg Oral Tablet (Aspirin) ..... One tab. daily Diltiazem Hcl Er(cartia Xt)cp 180mg (Diltiazem hcl coated beads) ..... Take 1 capsule at bedtime Blanka Macario Electrophysiology 15 : r ecommend she has antibodies checked. Orders: C ovid Antibody Igg (92636) C ovid Antibody IgM (LC) (328940) C ovid Antibody IgA (LC) (100439) C OVID19 High Affinity Antibodies (LC) (189015) Blanka Macario Electrophysiology 15 : D enies of any palpitations. R hythm: Sinus Rhythm. S VE: 0.1%, 195 single SVEs, and 5 paired SVEs. V E: 0.1%, and 7 single VEs. A verage heart rate: 70BPM M inimum heart rate: 46BPM M aximum heart rate: 103BPM P atient did not submit a diary. N ormal. H er updated medication list for this problem includes: Aspirin 81 Mg Oral Tablet (Aspirin) ..... One tab. daily Flecainide Acet Tabs 50mg (Flecainide acetate) ..... Take 1 tablet twice a day Blanka Macario Electrophysiology 15 : D enies of any palpitations. C ontinue all current meds. H er updated medication list for this problem includes: Lisinopril Tabs 10mg (Lisinopril) ..... Take 1 tablet daily Aspirin 81 Mg Oral Tablet (Aspirin) ..... One tab. daily Diltiazem Hcl Er(cartia Xt)cp 180mg (Diltiazem hcl coated beads) ..... Take 1 capsule at bedtime Flecainide Acet Tabs 50mg (Flecainide acetate) ..... Take 1 tablet twice a day Rhythm: Sinus Rhythm. S VE: 0.1%, 195 single SVEs, and 5 paired SVEs. V E: 0.1%, and 7 single VEs. A verage heart rate: 70BPM M inimum heart rate: 46BPM M aximum heart rate: 103BPM P atient did not submit a diary. N ormal. Blanka Macario Telehealth:Advised r educed sodium intake and routine monitoring of the blood pressure. We aim for blood pressure less than 130/80. H er updated medication list for this problem includes: Lisinopril Tabs 10mg (Lisinopril) ..... Take 1 tablet daily Aspirin 81 Mg Oral Tablet (Aspirin) ..... One tab. daily Diltiazem Hcl Er(cartia Xt)cp 180mg (Diltiazem hcl coated beads) ..... Take 1 capsule at bedtime [facility] Telehealth:Denies of any palpitations. H er updated medication list for this problem includes: Lisinopril Tabs 10mg (Lisinopril) ..... Take 1 tablet daily Aspirin 81 Mg Oral Tablet (Aspirin) ..... One tab. daily Diltiazem Hcl Er(cartia Xt)cp 180mg (Diltiazem hcl coated beads) ..... Take 1 capsule at bedtime Flecainide Acet Tabs 50mg (Flecainide acetate) ..... Take 1 tablet twice a day Orders: H olter Monitor 48 hr (CPT-53056) C omplete Echo (CPT-96120) [facility] Telehealth:Denies of any palpitations. H er updated medication list for this problem includes: Lisinopril Tabs 10mg (Lisinopril) ..... Take 1 tablet daily Aspirin 81 Mg Oral Tablet (Aspirin) ..... One tab. daily Diltiazem Hcl Er(cartia Xt)cp 180mg (Diltiazem hcl coated beads) ..... Take 1 capsule at bedtime Flecainide Acet Tabs 50mg (Flecainide acetate) ..... Take 1 tablet twice a day Orders: H olter Monitor 48 hr (CPT-50748) C omplete Echo (CPT-68828) [facility] Telehealth:Denies of any palpitations. H er updated medication list for this problem includes: Aspirin 81 Mg Oral Tablet (Aspirin) ..... One tab. daily Flecainide Acet Tabs 50mg (Flecainide acetate) ..... Take 1 tablet twice a day Orders: H olter Monitor 48 hr (CPT-89331) C omplete Echo (CPT-68212) Wellington Nataliia Electrophysiology [facility] Electrophysiology: H er updated medication list for this problem includes: Lisinopril 10 Mg Oral Tablet (Lisinopril) ..... One tab. daily Aspirin 81 Mg Oral Tablet (Aspirin) ..... One tab. daily Cardizem Cd 180 Mg Oral Capsule Extended Release 24 Hour (Diltiazem hcl coated beads) ..... One tab at bedtime Orders: 9 9215 HIGH Complex (CPT-72392) M obile Cardiac Tele (CPT-20786) [facility] Electrophysiology: B P today: 120/80 P rior BP: 130/90 (05/01/2018) Labs Reviewed: C reat: 1.13 (11/08/2012) Her updated medication list for this problem includes: Lisinopril 10 Mg Oral Tablet (Lisinopril) ..... One tab. daily Aspirin 81 Mg Oral Tablet (Aspirin) ..... One tab. daily Cardizem Cd 180 Mg Oral Capsule Extended Release 24 Hour (Diltiazem hcl coated beads) ..... One tab at bedtime Orders: 9 9215 HIGH Complex (CPT-95059) [facility] Electrophysiology: H er updated medication list for this problem includes: Lisinopril 10 Mg Oral Tablet (Lisinopril) ..... One tab. daily Aspirin 81 Mg Oral Tablet (Aspirin) ..... One tab. daily Cardizem Cd 180 Mg Oral Capsule Extended Release 24 Hour (Diltiazem hcl coated beads) ..... One tab at bedtime Flecainide Acetate 50 Mg Oral Tablet (Flecainide acetate) ..... One tablet twice a day Orders: E KG (CPT-76305) 9 9215 HIGH Complex (CPT-61398) M obile Cardiac Tele (CPT-58730) [facility] Electrophysiology: H er updated medication list for this problem includes: Aspirin 81 Mg Oral Tablet (Aspirin) ..... One tab. daily Flecainide Acetate 50 Mg Oral Tablet (Flecainide acetate) ..... One tablet twice a day Orders: 9 9215 HIGH Complex (CPT-71911) M obalicia Cardiac Tele (CPT-52375) Ari Bhandari Electrophysiology Follow up Sam Pantoja Electrophysiology Fo llow up : H er updated medication list for this problem includes: Lisinopril 10 Mg Oral Tablet (Lisinopril) ..... One tab. daily Aspirin 81 Mg Oral Tablet (Aspirin) ..... One tab. daily Cardizem Cd 180 Mg Oral Capsule Extended Release 24 Hour (Diltiazem hcl coated beads) ..... One tab at bedtime Flecainide Acetate 50 Mg Oral Tablet (Flecainide acetate) ..... One tablet twice a day Jeremy Pantoja Electrophysiology Fo llow up : H er updated medication list for this problem includes: Lisinopril 10 Mg Oral Tablet (Lisinopril) ..... One tab. daily Aspirin 81 Mg Oral Tablet (Aspirin) ..... One tab. daily Cardizem Cd 180 Mg Oral Capsule Extended Release 24 Hour (Diltiazem hcl coated beads) ..... One tab at bedtime Flecainide Acetate 50 Mg Oral Tablet (Flecainide acetate) ..... One tablet twice a day Jeremy Scarlett Electrophysiology follow up Nick Kent MD Electrophysiology follow up Nick Kent MD Electrophysiology fo llow up:EKG today showed sinus rhythm Macario Kent MD Cardiology faxed 11/04/16:[id number] -VASc score is 1. Kody Stuart Cardiology faxed 11/04/16:[id number] -VASc score is 1. Kody Stuart Cardiology faxed 10/08 :Orders: F VC - 76456 (46764) F RC - 59537 (32716) D LCO - 70817 (28959) X -Ray, Chest, PA & Lateral (CPT-34190) Kody Stuart Cardiology faxed 10/08 :Her updated medication list for this problem includes: Lisinopril 10 Mg Tabs (Lisinopril) ..... One tab. daily Aspirin 81 Mg Tabs (Aspirin) ..... One tab. daily Cardizem Cd 180 Mg [id number] (Diltiazem hcl coated beads) ..... One tab at bedtime Flecainide Acetate 50 Mg Tabs (Flecainide acetate) ..... One tablet twice a day Kody Stuart Cardiology faxed 10/08 :Her updated medication list for this problem includes: Lisinopril 10 Mg Tabs (Lisinopril) ..... One tab. daily Aspirin 81 Mg Tabs (Aspirin) ..... One tab. daily Cardizem Cd 180 Mg [id number] (Diltiazem hcl coated beads) ..... One tab at bedtime Flecainide Acetate 50 Mg Tabs (Flecainide acetate) ..... One tablet twice a day Kody Stuart EP faxed 09/20/15: H er updated medication list for this problem includes: Lisinopril 10 Mg Tabs (Lisinopril) ..... One tab. daily Aspirin 81 Mg Tabs (Aspirin) ..... One tab. daily Cardizem Cd 180 Mg [id number] (Diltiazem hcl coated beads) ..... One tab at bedtime Flecainide Acetate 50 Mg Tabs (Flecainide acetate) ..... One tablet twice a day Macario Kent MD EP faxed 09/20/15: H er updated medication list for this problem includes: Aspirin 81 Mg Tabs (Aspirin) ..... One tab. daily Flecainide Acetate 50 Mg Tabs (Flecainide acetate) ..... One tablet twice a day Macario Kent MD fu faxed 03/03/15 154 5: H er updated medication list for this problem includes: Alprazolam 0.5 Mg Tabs (Alprazolam) ..... Take one half pill twice a day as needed Lisinopril 10 Mg Tabs (Lisinopril) ..... One tab. daily Aspirin 81 Mg Tabs (Aspirin) ..... One tab. daily Cardizem Cd 180 Mg [id number] (Diltiazem hcl coated beads) ..... One tab at bedtime Flecainide Acetate 50 Mg Tabs (Flecainide acetate) ..... One tablet twice a day Macario Kent MD fu faxed 03/03/15 154 5: H er updated medication list for this problem includes: Aspirin 81 Mg Tabs (Aspirin) ..... One tab. daily Flecainide Acetate 50 Mg Tabs (Flecainide acetate) ..... One tablet twice a day Orders: Dyana KG (CPT-98333) Macario Kent MD fu faxed 03/03/15 1545 Macario raymond MD EP follow up faxed 08/25/14 1318 Macario Kent MD EP follow up faxed 08/25/14 1318 Macario Kent MD EP follow up faxed 10/25/13 1318: H er updated medication list for this problem includes: Alprazolam 0.5 Mg Tabs (Alprazolam) ..... Take one half pill twice a day Lisinopril 10 Mg Tabs (Lisinopril) ..... One tab. daily Aspirin 81 Mg Tabs (Aspirin) ..... One tab. daily Cardizem Cd 180 Mg [id number] (Diltiazem hcl coated beads) ..... One tab at bedtime Flecainide Acetate 50 Mg Tabs (Flecainide acetate) ..... One tablet twice a day Macario Kent MD EP follow up faxed 10/25/13 1318: H er updated medication list for this problem includes: Aspirin 81 Mg Tabs (Aspirin) ..... One tab. daily Flecainide Acetate 50 Mg Tabs (Flecainide acetate) ..... One tablet twice a day Macario Kent MD EP follow up faxed 08/25/14 1318 Macario Kent MD EP follow up faxed 08/25/14 1318 Macario Kent MD EP follow up faxed 08/25/14 1318 Macario Kent MD EP follow up faxed 08/25/14 1318 Macario Kent MD follow up: T he following medications were removed from the medication list: Metoprolol Tartrate 25 Mg Tabs (Metoprolol tartrate) ..... 1/2 tablet by mouth every 6 hours Her updated medication list for this problem includes: Warfarin Sodium 5 Mg Tabs (Warfarin sodium) ..... One tablet daily except 1/2 tab on tues and -sat Lisinopril 10 Mg Tabs (Lisinopril) ..... One tab. daily Cristhian Edmond MD follow up: T he following medications were removed from the medication list: Metoprolol Tartrate 25 Mg Tabs (Metoprolol tartrate) ..... 1/2 tablet by mouth every 6 hours Her updated medication list for this problem includes: Alprazolam 0.5 Mg Tabs (Alprazolam) ..... 1 tab twice daily - february incr to q6hr for one month post ablation Warfarin Sodium 5 Mg Tabs (Warfarin sodium) ..... One tablet daily except 1/2 tab on tues and -sat Lisinopril 10 Mg Tabs (Lisinopril) ..... One tab. daily Amiodarone Hcl 400 Mg Tabs (Amiodarone hcl) ..... Take one half pill a day. Cristhian Edmond MD follow up: T he following medications were removed from the medication list: Metoprolol Tartrate 25 Mg Tabs (Metoprolol tartrate) ..... 1/2 tablet by mouth every 6 hours Her updated medication list for this problem includes: Alprazolam 0.5 Mg Tabs (Alprazolam) ..... 1 tab twice daily - february incr to q6hr for one month post ablation Warfarin Sodium 5 Mg Tabs (Warfarin sodium) ..... One tablet daily except 1/2 tab on tues and -sat Lisinopril 10 Mg Tabs (Lisinopril) ..... One tab. daily Amiodarone Hcl 400 Mg Tabs (Amiodarone hcl) ..... Take one half pill a day. due to symptoms associated with amiodarone, will cut it down to 1/2 a pill of it . Cristhian Edmond MD follow up Cristhian Edmond MD follow up: T he following medications were removed from the medication list: Metoprolol Tartrate 25 Mg Tabs (Metoprolol tartrate) ..... 1/2 tablet by mouth every 6 hours Her updated medication list for this problem includes: Alprazolam 0.5 Mg Tabs (Alprazolam) ..... 1 tab twice daily - may incr to q6hr for one month post ablation Warfarin Sodium 5 Mg Tabs (Warfarin sodium) ..... One tablet daily except 1/2 tab on tues and -sat Lisinopril 10 Mg Tabs (Lisinopril) ..... One tab. daily Amiodarone Hcl 400 Mg Tabs (Amiodarone hcl) ..... Take one pill a day Cristhian Edmond MD Date Name Holter Monitor 48 hr Stress Routine Complete Echo Monitor - Telemetry (Mobile Cardiac) Complete Echo Complete Echo RPM (remote patient monitoring) CT Head without cont rast Carotid Duplex Bilat eral Monitor - Telemetry (Mobile Cardiac) MAGNESIUM TSH, free T4, total T3 CBC (INCLUDES DIFF/P LT) LIPID PANEL COMPREHENSIVE METABO LIC PANEL, W/EGFR Aorta Duplex Ultraso und Complete Echo Holter Monitor 48 hr Monitor - Telemetry (Mobile Cardiac) COVID19 Rapid POC Cortisol TSH, free T4, total T3 LIPID PANEL CBC (H/H, RBC, INDIC ES, WBC, PLT) COMPREHENSIVE METABO LIC PANEL, W/EGFR Aorta Duplex Ultraso und Complete Echo Monitor - Telemetry (Mobile Cardiac) COVID19 High Affinit y Antibodies (LC) Covid Antibody IgA ( LC) Covid Antibody IgM ( LC) Covid Antibody Igg Complete Echo Holter Monitor 48 hr Complete Echo Mobile Cardiac Tele Complete Echo Sleep Study Home Mobile Cardiac Tele Aorta Duplex Ultraso und (AAA) Holter Monitor 24 Hr X-Ray, Chest, PA & L ateral DLCO - 61830 FRC - 81747 FVC - 25040 Complete Echo Holter Monitor 24 Hr Holter Monitor 24 Hr Complete Echo Mobile Cardiac Tele Mobile Cardiac Tele Mobile Cardiac Tele Mobile Cardiac Tele Mobile Cardiac Tele ABLATION w/ Anesthes ia Spirometry ABLATION w/ Anesthes ia Stress Test - Nuclea r Phone 5-10 Phone 21+ HISTORY OF PROCEDURES Procedure Date Procedure Name Provider Procedure Notes S tatus EKG Macario quinonez MD completed Schedule Followup Macario lang MD [address] Kent completed EKG Macario quinonez MD completed EKG Macario quinonez MD completed Schedule Followup Saulius Kalmarshall lang MD completed EKG ulius Priti quinonez MD completed EKG ulius Priti quinonez MD completed Holter, 24 or 48 Saulius Michael salvador MD completed EKG ulius Priti quinonez MD completed EKG ulius Priti quinonez MD completed EKG ulius Priti quinonez MD completed Schedule Followup Saulius Kalmarshall lang MD in 1 year completed Holter, 24 or 48 ulius Michael salvador MD completed EKG ulius Prtii quinonez MD completed SNOMED-CT: [id number] Current Medications Documented Saulius Donte MONREAL completed FVC - 60485 Macario quinonez MD completed FRC - 14406 ulius Priti quinonez MD completed DLCO - 91731 ulius Priti quinonez MD completed EKG ulius Priti quinonez MD completed SNOMED-CT: [id number] Current Medications Documented ulius Donte MONREAL completed Holter, 24 or 48 ulius Michael salvador MD completed Schedule Followup ulius Jose lang MD 1 year completed EKG ulius Priti quinonez MD completed SNOMED-CT: [id number] Current Medications Documented Saulius Kalmani MONREAL completed Holter, 24 or 48 Js Ibarra MD co mpleted EKG ulius Priti quinonez MD completed Schedule Followup ulius Jose lang MD in 6 months completed EKG ulius Priti quinonez MD completed Schedule Followup ulius Jose lang MD fu with SK in 12 months completed EKG ulius Priti quinonez MD completed Schedule Followup Saulius Jose lang MD fu in 6 months completed Schedule Followup ulius Jose lang MD in 3 months completed EKG Macario quinonez MD completed ePrescribe - Check t his box if eRx is used Macario Kent MD completed Schedule Followup ulius Jose lang MD IN 2 MONTHS completed EKG Macario quinonez MD completed EKG Macario quinonez MD completed ePrescribe - Check t his box if eRx is used Macario Kent MD completed Schedule Followup Macario lang MD completed EKG Macario quinonez MD completed Schedule Followup Macario lang MD in 2 weeks completed EKG Macario quinonez MD completed Schedule Followup ulius Jose lang MD fu in 1 months completed EKG Macario quinonez MD completed EKG Cristhian Edmond MD completed ePrescribe - Check t his box if eRx is used Macario Kent MD completed EKG Roz Bob MD complet ed
--- OUTSIDE RECORDS SUMMARY | 2025-02-07 21:57 | XMS_ITS | Referral Summary ---
Author Organization [facility] Address [facility] [place] [address] Care Team Providers Care Ruby Engineer Name Role Phone Scotty Shepard MD Primary Care Provider [phone] Allergies Active Allergy Reactions Criticality Noted Date Comments Adhesive Rash Medium 09/18/2023 Adhesive Tape-Silicones Unknown 06/10/2018 Amiodarone Unknown Clarithromycin Other (See comments),Shortness of breath High 03/02/2015 Reaction: THROAT TIGHTNESS Levofloxacin Unknown 06/10/2018 Prednisone Palpitations,Rash Medium 07/04/2021 Medications calcium carbonate (OS-KELBY) 650 mg calcium (1,625 mg) tablet Take 1 tablet (1,625 mg total) by mouth daily Active multivitamin tabletIndication s:Vitamin Deficiency Prevention Take 1 tablet by mouth Active dilTIAZem (CARDIZEM) 30 mg tablet Take 1 tablet (30 mg total) by mouth 2 (two) times a day 08/18/20 23 Active apixaban (ELIQUIS) 5 mg tabletIndication s:atrial fibrillation Take 1 tablet (5 mg total) by mouth 2 (two) times a day 60 tablet 03/02/20 24 Active flecainide (TAMBOCOR) 50 mg tablet Take 1 tablet (50 mg total) by mouth 03/02/[address] (PROTONIX) 40 mg EC tablet Take 1 tablet (40 mg total) by mouth daily 90 tablet 3 09/06/20 24 025 Active ALPRAZolam (XANAX) 0.5 mg tablet TAKE 1 TABLET TWICE A DAY 60 tablet 2 10/11/19 25 Active amitriptyline (ELAVIL) 10 mg tablet TAKE ONE-HALF (1/2) TABLET NIGHTLY 45 tablet 02/04/20 25 Active amitriptyline (ELAVIL) 10 mg tablet Take 0.5 tablets (5 mg total) by mouth nightly 45 tablet 3 02/26/20 24 025 Discontinued Active Problems Problem Noted Date Diagnosed Date MADISYN (generalized anxiety disorder) 05/23/2021 Assessment & Plan (02/26/2024 11:33 AM CDT): Is on Elavil 5mg HS I have sent 90 days (45 tabs) of this with 3 refills to [facility] to avoid the future issues with refills Assessment & Plan (11/27/2023 3:30 PM MATE FIRST): Trial Elavil 10mg HS Assessment & Plan (05/28/2023 12:00 PM CDT): Using Xanax 0.25mg HS and PRN - continue (discussed use, safety, s/e and dependency risks) Counseling We discussed possible SSRI/SRNI use, declines at this time Assessment & Plan (10/16/2022 2:40 PM MATE FIRST): Elevated BP most certainly related to elevated anxiety over husbands health Currently taking 0.25-0.5mg Xanax HS, can increase to BID, we discussed timing to taking 1st dose to prior to arriving home from work as this appears to be a trigger for her Has not tolerated multiple SSRI/SRNI in the past and would prefer to avoid them Assessment & Plan (05/23/2021 2:34 PM CDT): Xanax 0.25mg BID PRN Other spondylosis with radiculopathy, cervical r egion 06/10/2018 Hypertension 05/01/2018 Supraventricular tachycardia 10/09/2012 Unspecified atrial flutter 10/06/1957 Assessment & Plan (02/26/2024 11:30 AM CDT): She attributes her symptoms at this point to her Xarelto as they improved with discontinuation Will give her a sample box of 7 days of Eliquis to see if symptoms return with this She will continue to communicate with Cardiology regarding further management of anti-coagulation Assessment & Plan (05/28/2023 12:00 PM CDT): Has cardiology Resolved Problems Problem Noted Date Diagnosed Date Resolved Date Nasal sore 11/27/2023 02/26/2024 Assessment & Plan (11/27/2023 3:28 PM MATE FIRST): Mupirocin x 1 week Immunizations Immunization Administration Dates Next Due Influenza, Quadrivalent, Jennifer l Culture-based MDCK, Preservative Free, Antibiotic Free, Intramuscular 08/15/2017 Influenza, Quadrivalent, Spl it, Preservative Free, Intramuscular 07/19/2015 Influenza, Trivalent, Adjuvanted, Intramuscular 07/22/2018 Influenza, Trivalent, IM (MDV) 07/29/2014,2012 Influenza, Trivalent, Preservative Free, Intramu scular 10/10/2016 Pneumococcal Conjugate PCV 13 10/10/2016 Pneumococcal Polysaccharide PPV23 08/15/2017 Tdap 05/04/2013 Social History Tobacco Use Types Packs/Day Years Used Date Smoking Tobacco: Former Smokeless Tobacco: Never Tobacco Cessation:Counseling Given: Not Answered Comments:quit over 34 years ago Alcohol Use Standard Drinks/Week Comments No 0 (1 standard drink = 0.6 oz pur e alcohol) AUDIT-C Answer Date Recorded Q1: How often do you have a drink containing alc ohol? Never 02/22/2022 Average Number of Drinks Not on file 022 Frequency of Binge Drinking Not on file 02/04 PHQ-2 Answer Date Recorded PHQ-2 Total Score (If total score is 3 or more points, staff should administer the PHQ-9) 0 09/23/2023 Personal Safety Answer Date Recorded Getting School Help Needed Not on file 09/18 Comments No Sex and Gender Information Value Date Recorded Sex Assigned at Not on file Legal Sex Female 3:03 AM MATE FIRST Gender Identity Female 09/18/2023 1:09 PM MATE FIRST Sexual Orientation Not on file Last Filed Vital Signs Vital Sign Reading Time Taken Comments Blood Pressure 144/78 04/05/2024 1:50 PM CDT Pulse 78 04/05/2024 1:50 PM CDT Temperature 36.4 C (97.5 F) 02/22/2022 2:34 PM CDT Respiratory Rate 16 02/22/2022 2:34 PM CDT Oxygen Saturation 96% 02/26/2024 11:13 AM CDT Inhaled Oxygen Concentration - - Weight 95.3 kg (210 lb) 05/28/2023 11:22 AM CDT Height 165.1 cm (5' 5 ) 04/05/2024 1:50 PM CDT Body Mass Index 34.95 05/28/2023 11:22 AM CDT Plan of Treatment Scheduled Procedures Name Priority Associated Diagnoses Date/Ti me COLONOSCOPY Screening for colon cancer COLONOSCOPY Colon cancer screening ESOPHAGOGASTRODUODENOSCOPY Esophageal spasm COLONOSCOPY Hx of colonic polyps ESOPHAGOGASTRODUODENOSCOPY Esophageal dysphagia COLONOSCOPY Encounter for screening colonoscopy [place] [address] [place] [address] MEDICARE BLUE ACC CHOICE [employer] ACCESS OOS MEDICARE Care Teams Ruby Engineer Relationship Specialty Start Date End Date Scotty Shepard MD [address] [facility] [address] [place] [address] PCP - General Internal Medicine 06/01/18
--- OUTSIDE RECORDS SUMMARY | 2025-02-07 21:57 | XMS_ITS | Encounter Summary ---
Author Organization [facility] Healthcare Address [facility] [place] [address] Care Team Providers Care Drift Miner Name Role Phone Fran Shepard MD Primary Care Provider [phone] Reason for Referral * Diagnostic Imaging (Routine) - Closed Specialty Diagnoses / Procedures Referred By Contac t Referred To Contact Diagnoses Pain of left lower extremity Procedures US Vein Duplex Lower Extremity Left Limited Fran Shepard MD [address] [address] Phone: tel: fax: [address] [address] Referral ID Status Reason Start Date Expiration Date Visits Re quested Visits Authorized [id number] Closed 07/22/2019 01/30/2021 1 1 Encounter Details Date Type Department Care Team (Late st Contact Info) Description 07/22/2019 Orders Only Internal Medicine Fran Shepard MD [id number] [place] [address] Pain of left lower extremity (Primary Dx) Social History Tobacco Use Types Packs/Day Years Used Date Smoking Tobacco: Former Smokeless Tobacco: Never Alcohol Use Standard Drinks/Week Comments No 0 (1 standard drink = 0.6 oz pur e alcohol) Comments Unknown Sex and Gender Information Value Date Recorded Sex Assigned at Not on file Legal Sex Female 3:03 AM DUST MILL OPERATOR Gender Identity Female 09/18/2023 1:09 PM DUST MILL OPERATOR Sexual Orientation Not on file documented as of this encounter Progress Notes * Nanda Alexander Suraj - 07/22/2019 2:38 PM CDT us documented in this encounter Plan of Treatment Scheduled Procedures Name Priority Associated Diagnoses Date/Ti me COLONOSCOPY Screening for colon cancer COLONOSCOPY Colon cancer screening ESOPHAGOGASTRODUODENOSCOPY Esophageal spasm COLONOSCOPY Hx of colonic polyps ESOPHAGOGASTRODUODENOSCOPY Esophageal dysphagia COLONOSCOPY Encounter for screening colonoscopy documented as of this encounter Results * US Vein Duplex Lower Extremity Left Limited (07/22/2019 3:24 PM CDT) Anatomical Region Laterality Modality Vascular Left Ultrasound 07/22/2019 3:10 PM CDT Narrative 07/22/2019 3:47 PM CDT [facility] - Department of Vascular Surgery, Vascular Laboratory [address] [place] [address] Lower Extremity Venous Ultrasound Report Patient Name: NGOZI MCGHEE R : 1950 (68y 11m) Study Date: 07/22/2019 3:10:17 PM Gender: F Tech: ELVIRA Location: [facility] Ref.Provider: FRAN SHEPARD Quality: Adequate Order Provider: FRAN SHEPARD Procedures: Vascular Report: Venous Duplex imaging was performed in the left lower extremity. The common femoral, femoral, popliteal, posterior tibial, peroneal veins were evaluated for patency, spontaneity and phasicity with Doppler, compression and augmentation maneuvers. Great saphenous vein proximal at the junction was evaluated with compression maneuvers. Indications: Pain in left leg. Findings: Performing Assistant Reading Teacher: Ramona Pearson RVT. Left: Venous Doppler signals in the left lower extremity are within normal limits for spontaneity and phasicity and respond normally to augmentation maneuvers. No evidence of deep vein thrombus by duplex, proximal to the calf. Comments: Contralateral common femoral vein is imaged for comparison and is patent. Unilateral (limited study) performed per M.D. order. Conclusions: 1. There is no evidence of acute deep vein thrombosis on the left. Noninvasive venous studies cannot rule out isolated calf vein obstruction. History: Not identified. Previous Studies: No previous studies for comparison. Disclaimer: The signing physician has reviewed all images pertaining to this test. These images and this report will be retained in the patient chart by the Vascular Laboratory for the legally required time period. This chart constitutes the legal record of any testing performed. Electronically Signed By: Anil Sadler MD [facility] 2019-07-22 15:47:05 CDT CC: CC: Procedure Note Anil Sadler MD - 07/22/2019 [facility] - Department of Vascular Surgery,Vascular Laboratory [address] [place] [address] Lower Extremity Venous Ultrasound Report Patient Name: NGOZI MCGHEE R : 1950 (68y 11m) Study Date: 07/22/2019 3:10:17 PM Gender: F Tech: ELVIRA Location: [facility] Ref.Provider: FRAN SHEPARD Quality: Adequate Order Provider: FRAN SHEPARD Procedures: Vascular Report: Venous Duplex imaging was performed in the left lower extremity. Thecommon femoral, femoral, popliteal, posterior tibial, peroneal veins were evaluated forpatency, spontaneity and phasicity with Doppler, compression and augmentationmaneuvers. Great saphenous vein proximal at the junction was evaluated with compressionmaneuvers. Indications: Pain in left leg. Findings: Performing Assistant Reading Teacher: Ramona Pearson RVT. Left: Venous Doppler signals in the left lower extremity are within normallimits for spontaneity and phasicity and respond normally to augmentation maneuvers.No evidence of deep vein thrombus by duplex, proximal to the calf. Comments: Contralateral common femoral vein is imaged for comparison and is patent.Unilateral (limited study) performed per M.D. order. Conclusions: 1. There is no evidence of acute deep vein thrombosis on the left.Noninvasive venous studies cannot rule out isolated calf vein obstruction. History: Not identified. Previous Studies: No previous studies for comparison. Disclaimer: The signing physician has reviewed all images pertaining to this test.These images and this report will be retained in the patient chart by the VascularLaboratory for the legally required time period. This chart constitutes the legal record ofany testing performed. Electronically Signed By: Anil Sadler MD [facility] 2019-07-22 15:47:05 CDT CC: CC: Fran Shepard MD IM US PROCEDURES Final Resul t documented in this encounter Visit Diagnoses Diagnosis Pain of left lower extremity- Primary Pain of left lower extremity documented in this encounter Additional Health Concerns Infection Onset Date Last Indicated Resolved Time COVID: Suspected 09/12/2020 09/12/2020 09/13/2020 7:07 PM DUST MILL OPERATOR COVID19 09/12/2020 09/12/2020 09/26/2020 3:07 AM DUST MILL OPERATOR documented as of this encounter Care Teams Drift Miner Relationship Specialty Start Date End Date Fran Shepard MD [id number] [place] [address] PCP - General Internal Medicine 06/01/18 documented as of this encounter
--- OUTSIDE RECORDS SUMMARY | 2025-02-07 21:57 | XMS_ITS | Continuity of Care Document ---
Author Organization [facility] Address [address] [place] [address] Phone Care Team Providers Care Certified Medical Technician Assistant Name Role Phone Dane Romero Unavailable Unavailable Procedures Procedure Date Office/outpatient Visit, Est Office/outpatient Visit, Est Eye Exam, New Patient Advance Directives Directive Yes / No Effective Date File Name No Information Encounters Encounter Description Practice Location Reason(s) For Visit Diagnoses Date Provider Providers Copied on Encounter [place] [facility] [place] [address] [place] [address] [address], [place], [place], [id number], [place] tel:[phone] [facility] No Information 0 4-201 0 Krishnasamy Dane. [address] [address], [place], [place], [facility][note 3], [place]. tel:[phone] [place] [facility] [place] [address] [place] [address] [address], [place], [place], [id number], [place] tel:[phone] [facility] No Information 5-201 0 Krishnasamy Dane. [address] [facility] [address], [place], [address], [place]. tel:[phone] [facility], [address] [place] [address] [address], [place], [place], [id number], [place] tel:[phone] [facility][note 2] No Information 0 1-200 8 Krishnasamy Dane. [address], [address], [place]. tel:[phone] Family History Family Member Type Diagnosis Age At Onset No Information Payers Payer name Insurance type Covered constitution party ID Authoriza tion(s) No Information Social [...]
--- OUTSIDE RECORDS SUMMARY | 2025-02-07 21:57 | XMS_ITS | Clinical Summary ---
Author Organization [facility] Address [facility] [place] [address] Care Team Providers Care Powerhouse Operator Name Role Phone Scotty Shepard MD Primary Care Provider [phone] Allergies Active Allergy Reactions Criticality Noted Date [...] refills Assessment & Plan (11/27/2023 3:30 PM CARPENTER PROTOTYPE): Trial Elavil 10mg HS Assessment & Plan (05/28/2023 12:00 PM CDT): Using Xanax 0.25mg HS and PRN - continue (discussed use, safety, s/e and dependency risks) Counseling We discussed possible SSRI/SRNI use, declines at this time Assessment & Plan (10/16/2022 2:40 PM CARPENTER PROTOTYPE): Elevated BP most certainly related to elevated [...] 02/26/2024 Assessment & Plan (11/27/2023 3:28 PM CARPENTER PROTOTYPE): Mupirocin x 1 week Immunizations Immunization Administration Dates Next Due Influenza, Quadrivalent, Jennifer l Culture-based MDCK, Preservative Free, Antibiotic Free, Intramuscular 08/15/2017 Influenza, Quadrivalent, Spl it, Preservative Free, Intramuscular 07/19/2015 Influenza, Trivalent, Adjuvanted, Intramuscular 07/22/2018 Influenza, Trivalent, IM (MDV) 07/29/2014,2012 Influenza, Trivalent, Preservative Free, Intramu scular 10/10/2016 Pneumococcal Conjugate PCV 13 10/10/2016 Pneumococcal Polysaccharide PPV23 08/15/2017 Tdap 05/04/2013 Surgical History Surgery Date Site/Laterality Comments CARDIAC ELECTROPHYSIOLOGY MAPPING AND ABLATION CHOLECYSTECTOMY SECTION Medical History Medical History Date Comments Abnormal ECG Anxiety Atrial fibrillation (HCC) Diverticulitis of colon Hypertension Family History Medical History Relation Name Comments Cancer Maternal Grandfather Cancer Maternal Grandmother Cancer Mother Hypertension Sister Relation Name Status Comments Maternal Grandfather Maternal Grandmother Mother Sister Social History Tobacco Use Types Packs/Day Years [...] on file Legal Sex Female 3:03 AM CARPENTER PROTOTYPE Gender Identity Female 09/18/2023 1:09 PM CARPENTER PROTOTYPE Sexual Orientation Not on file Obstetrics History Last Filed Vital Signs Vital Sign Reading [...] Esophageal dysphagia COLONOSCOPY Encounter for screening colonoscopy Health Maintenance Due Date Last Done Comments Breast Cancer Screening-Mammogram 1950 Colon Cancer Screening-Colonoscopy 1950 Hepatitis C Screening 1950 Osteoporosis Screening-Bone Density Scan 1950 Hepatitis B Screening 1970 Zoster Vaccine (1 of 2) 2002 Pneumococcal vaccine 65+ (3 of 3 - PCV20 or PCV21) 08/15/2022 08/15/2017, 10/10/2016 DTaP/Tdap/Td Vaccine (2 - Td or Tdap) 05/04/2023 05/04/2013 Depression Screening 09/25/2024 09/25/2023 Fall Risk Assessment 09/25/2024 09/25/2023, 02/23/20 22 Well Visit 65+ 09/25/2024 09/25/2023 Influenza Vaccine (Season Ended) 2025 07/22/2018, 08/15/2017, 10/10/2016, Additional history exists Insurance ANTH ACCESS MEDICARE BLUE ACC CHOICE OOS BLUE ACCESS OOS [facility] Address: [address] [place] [address] MEDICARE Care Teams Powerhouse Operator Relationship Specialty Start Date End Date Scotty Shepard MD [address] [facility] [address] [place] [address] PCP - General Internal Medicine 06/01/18
--- NOTE | 2025-02-07 22:03 | ECG_ITS ---
Test Date: 2025-02-07 22:27:13 Measurements Intervals [place] Rate: 164 P: 0 AL: 0 QRS: 2 QRSD: 90 T: 74 QT: 257 QTc: 425 Interpretive Statements SUPRAVENTRICULAR TACHYCARDIA NONSPECIFIC ST & T-WAVE ABNORMALITY ABNORMAL RHYTHM ECG No previous ECG available for comparison Electronically Signed On 02-08-2025 14:21:03 CDT by Darwin Rosales M.D.
[2025-02-07 22:24] LABS: Basophils Absolute Auto 0.1 K/mm3 (0.0-0.1); Basophils Percent Auto 0.7 % (0.2-1.2); Eosinophils Absolute Auto 0.1 K/mm3 (0-0.3); Eosinophils Percent Auto 0.7 % (0-4.4); Hematocrit 44.9 % (37.0-47.0); Hemoglobin 14.3 g/dL (12.0-15.0); Immature Granulocyte Absolute 0.03 K/mm3 (0.00-0.031); Immature Granulocyte Percent A 0.4 % (0-0.5); Lymphocytes Absolute Auto 2.72 K/mm3 (0.9-3.2); Lymphocytes Percent Auto 38.4 % (18.3-44.2); Mean Corpuscular HGB Conc 31.8 g/dl (32-36); Mean Corpuscular Hemoglobin 30.4 pg (26-34); Mean Corpuscular Volume 95.5 fl (80-100); Mean Platelet Volume 10.4 fl (7.4-10.4); Monocytes Absolute Auto 0.7 K/mm3 (0.1-0.6); Monocytes Percent Auto 9.4 % (2.6-8.5); Neutrophils Absolute Auto 3.6 K/mm3 (1.3-6.7); Neutrophils Percent Auto 50.4 % (45.5-73.1); Platelet Count Result 218 k/mm3 (150-375); Red Cell Distribution Width 12.5 % (11.5-14.5); White Blood Count 7.1 K/mm3 (4.5-10.0)
[2025-02-07 22:34] LABS: Alanine Aminotransferase 30 U/L (6-35); Albumin Level 4.7 g/dL (3.5-5.1); Alkaline Phosphatase 119 U/L (38-126); Anion Gap 10 mmol/L (4-12); Aspartate Amino Transferase 31 U/L (14-36); Bilirubin,Total 0.5 mg/dL (0.2-1.3); Blood Urea Nitrogen 12 mg/dL (7-17); Carbon Dioxide 25 mmol/L (22-30); Chloride 105 mmol/L (98-107); Estimated CRCL calculation 55 ml/min; Estimated Glomerular Filt Rate 60; Glucose 144 mg/dL (65-110); Lipase 226 U/L (23-300); Sodium 140 mmol/L (137-145)
[2025-02-07 22:37] LABS: Prothrombin Time 13.3 Seconds (11.1-14.7)
[2025-02-07 22:38] LABS: Partial Thromboplastin Time 30.3 Seconds (22.3-36.8)
[2025-02-07] MEDS: dilTIAZem HCl INJ 25 MG/5 ML VIAL 15 MG IV PUSH (22:42)
[2025-02-07 22:45] LABS: Troponin I < 0.012 ng/mL (0.000-0.034)
--- NOTE | 2025-02-07 22:50 | ECG_ITS ---
Test Date: 2025-02-07 22:53:58 Measurements Intervals [place] Rate: 89 P: 14 MA: 146 QRS: -10 QRSD: 89 T: 42 QT: 350 QTc: 426 Interpretive Statements SINUS RHYTHM VOLTAGE CRITERIA FOR LVH [MEETS CRITERIA IN ONE OF: R(aVL), S(V1), R(V5), R(V5/V6)+S(V1)] Compared to ECG 02/07/2025 22:27:13 Supraventricular tachycardia no longer present Electronically Signed On 02-08-2025 14:22:06 CDT by Darwin Rosales M.D.
--- OUTSIDE RECORDS SUMMARY | 2025-02-07 22:50 | XMS_ITS | Clinical Summary ---
Author Organization [facility] Address [facility] [place] [address] Care Team Providers Care Decorator Inspector Name Role Phone Scotty Shepard MD Primary Care Provider [phone] Allergies Active Allergy Reactions Criticality Noted Date [...] Comments Blood Pressure 146/89 09/23/2023 12:41 PM SENIOR FRONT END DEVELOPER Pulse 81 09/23/2023 12:25 PM SENIOR FRONT END DEVELOPER Temperature 36.8 C (98.2 F) 09/23/2023 12:25 PM SENIOR FRONT END DEVELOPER Respiratory Rate 20 09/23/2023 12:41 PM SENIOR FRONT END DEVELOPER Oxygen Saturation 94% 09/23/2023 12:41 PM SENIOR FRONT END DEVELOPER Inhaled Oxygen Concentration - - Weight 97.5 kg (215 lb) 09/18/2023 4:49 PM SENIOR FRONT END DEVELOPER Height 165.1 cm (5' 5 ) 09/18/2023 4:49 PM SENIOR FRONT END DEVELOPER Body Mass Index 35.78 09/18/2023 4:49 PM SENIOR FRONT END DEVELOPER Plan of Treatment Health Maintenance Due Date [...] patient's age to complete this topic Insurance [facility] Care Teams Decorator Inspector Relationship Specialty Start Date End Date Scotty Shepard MD [address] [address] PCP - General INTERNAL MEDICINE 09/23/23
--- OUTSIDE RECORDS SUMMARY | 2025-02-07 22:51 | XMS_ITS | CONTINUITY OF CARE DOCUMENT ---
Author Name frank, frank Address Unknown Organization [facility] Address [address] [place] [address] Phone [phone] Care Team Providers Care Bushel Girl Name Role Phone Donte MONREAL, Macario Unavailable [...] In-person encounter Office Visit Macario Kent MD [place] [facility] - In-person encounter Office Visit Macario Kent MD [place] [facility] - In-person encounter Office Visit Macario Kent MD [place] [facility] - In-person encounter Office Visit Macario Kent MD [place] [facility] - In-person encounter Office Visit Macario Kent MD [place] [facility] Sinus drainage - In-person encounter Office Visit Macario Kent MD [place] [facility] Carotid bruit, bilateral - In-person encounter Office Visit Macario Kent MD [place] [facility] - In-person encounter Office Visit Macario Kent MD [facility] Office - In-person encounter Office Visit Macario Kent MD [place] [facility] Coronavirus infection 09/2020Fatigue - In-person encounter Office Visit Macario Kent MD [place] [facility] - In-person encounter Office Visit Macario Kent MD [place] [facility] ArthritisHTN - In-person encounter Office Visit Macario Kent MD [place] [facility] - In-person encounter Office Visit Macario Kent MD [place] [facility] SVT S/P ABLATION 11/18Atrial fib paroxysmal - in NSR Holter trial flutter S/P ablation 10/18 - In-person encounter Office Visit Macario Kent MD [place] [facility] Atrial fib paroxysmal - in NSR Holter trial flutter S/P ablation 10/18 - In-person encounter Office Visit Macario Kent MD [place] [facility] Atrial fib paroxysmal - in NSR Holter 10/22 - In-person encounter Office Visit Macario Kent MD [facility] Office Atrial fib paroxysmal - in NSR Holter trial flutter S/P ablation 10/18 - In-person encounter Office Visit Macario Kent MD [place] [facility] - In-person encounter Office Visit Macario Kent MD [place] [facility] - In-person encounter Office Visit Macario Kent MD [place] [facility] - In-person encounter Office Visit Macario Kent MD [place] [facility] ATRIAL FIB PAROXYSMAL-05/18 EVENT MX- SR HR 44-96 - In-person encounter Office Visit Macario Kent MD [place] [facility] - In-person encounter Office Visit Macario Kent MD [place] [facility] - In-person encounter Office Visit Macario Kent MD [place] [facility] - In-person encounter Office Visit Macario Kent MD [place] [facility] SHORTNESS OF BREATH - In-person encounter Office Visit Cristhian Edmond MD [place] [facility] SVT S/P ABLATION 11/18 - In-person encounter Office Visit Macario Kent MD [place] [facility] SVT S/P ABLATION 11/18DIZZINESS - In-person encounter Office Visit Roz Bob MD [place] [facility] CHEST PAIN, NON-CARDIACPALPITATI ONSOBESITY VITAL SIGNS [...] Sharita Gruenenfelder respiratory rate E&M 12 /min Shraita G ruenenfelder pulse rate 70 /min Sharita [...] blood pressure, cuff size large La paolo [place] blood pressure, diastolic 76 mm[Hg] La paolo Evon blood pressure, systolic 139 mm[Hg] Norris diazda [place] oxygen saturation, oximetry 95 % Lucero [place] respiratory rate E&M 18 /min Ligia brito Evon pulse rate 67 /min Lucero [place] weight E&M 190 [lb_av] Lucero [place] height E&M 63 [in_i] Lucero [place] Body Mass Index (Ratio) 39.85 kg/m2 Taew on Renaldo blood pressure, cuff size large Ke rri Jorge [facility] blood pressure, diastolic 74 mm[Hg] Ke rri uenenfcentral [facility] cent[facility] blood pressure, systolic 142 mm[Hg] Debi ri [facility] oxygen saturation, oximetry 95 % Sharita Kangcarlos manueljeanethbaylor [facility] respiratory rate E&M 16 /min Sharita pino pulse rate 64 /min Sharita April [facility] weight E&M 225 [lb_av] Sharita Rodrígueze [facility] height E&M 63 [in_i] Sharita Jorge Luisandraee [facility] Body Mass Index (Ratio) 37.37 kg/m2 Taew on Renaldo blood pressure, cuff size regular Kr isnorberto Erika blood pressure, diastolic 78 mm[Hg] Kr isty Erika blood pressure, systolic 150 mm[Hg] Kri stpanchito Blue oxygen saturation, oximetry 97 % Fadumo Blue pulse rate 90 /min Fadumo Erika respiratory rate E&M 20 /min Fadumo Erika weight E&M 211 [lb_av] Fadumo Erika height E&M 63 [in_i] Fadumo Blue height E&M 63 [in_i] Wellington Fredote blood pressure, resting Yes Kill een Kent blood pressure, diastolic 80 mm[Hg] Amadou le Kent blood pressure, systolic 120 mm[Hg] Brian augustin Kent oxygen saturation, oximetry 98 % Leslie Kent respiratory rate E&M 16 /min Jen Kent pulse rate 77 /min Jen Kent height E&M 63 [in_i] Jen Kent Body Mass Index (Ratio) 39.32 kg/m2 Sam Pantoja blood pressure, cuff size large Ke rri Gruenenf[facility] blood pressure, diastolic 90 mm[Hg] Ke rri Gruenenfelder blood pressure, systolic 130 mm[Hg] Debi ri Talnf[facility] oxygen saturation, oximetry 96 % Sharita Lee [...] diastolic, right arm 99 m m[Hg] Gonzalo nAdrearan blood pressure, systolic, right arm 151 m [...] 100-199 High platelet count 232 X10E3/UL [employer] [phone]/06 /05 red blood cell distribution width 13.0 [...] [employer]Logic 3.5-5.2 sodium, serum 142 mmol/L [employer] 141-536 8920/06 /05 urea nitrogen/creatinine ratio, serum 16 LinkLogic [...] Rhodes RN Normal platelet count 247 10*3/mm3 [facility] hematocrit, blood 47.3 % [facility] alanine aminotransferase (SGPT), serum 45 1/L [facility] [place] aspartate aminotransferase (SGOT), serum 26 1/L [facility] [place] creatinine, serum 1.13 mg/dL [facility] potassium, serum 4.0 mmol/L [facility] [place] sodium, serum 147 mmol/L [facility] [place] prothrombin time (patient) 25.1 s Sharita Howard international normalized ratio (INR) 2.5 Sharita Howard Normal coagulation managed by Simone Rhodes RN prothrombin time (patient) 36.8 s Anjum Brunomartin international normalized ratio (INR) 3.7 Anjum Brunonew [facility] Normal prothrombin time (patient) 30.4 s Sharita Peraltaer international normalized ratio (INR) 3.0 Sharita Howard Normal platelet count 230 10*3/uL Jarredetrchristian Touer hematocrit, blood 45.7 % [facility] creatinine, serum 0.75 mg/dL [facility] [place] potassium, serum 4.9 mmol/L [facility] [place] sodium, serum 145 mmol/L [facility] [place] coagulation managed by Simone [...] Toure aspartate aminotransferase (SGOT), serum 36 1/L Meclhor Toure creatinine, serum 0.77 mg/dL Melchor Toure [...] i drug use none Maxine Henningzulay r ELECTRONICS REPAIR TECHNICIAN alcohol use no Maxine Henningzulay r ELECTRONICS REPAIR TECHNICIAN passive cigarette sm paula exposure no Maxine Henningzulayr ELECTRONICS REPAIR TECHNICIAN smoking, year quit 1986 Maxine Henningzulayr ELECTRONICS REPAIR TECHNICIAN number of years as a smoker 5-9 Maxine Henningzulayr ELECTRONICS REPAIR TECHNICIAN smoking history, tot al pack/year 12 Maxine Henningzulayr ELECTRONICS REPAIR TECHNICIAN smoking history, tot al pack/day 1/2 ppd Maxine Henningzulayr ELECTRONICS REPAIR TECHNICIAN cigarette use yes Maxine Henningdaria er ELECTRONICS REPAIR TECHNICIAN smoking status Former smoker Maxine Henning dairaer ELECTRONICS REPAIR TECHNICIAN Exercise counseling Yes Maxine Henningezekiel ELECTRONICS REPAIR TECHNICIAN social history reviewed E&M revi ewed - [...] averag e drinks per day 0 /d Shartia Howard passive cigarette sm paula exposure no [...] changes required Blanka Macario exercise type gym [employer] caffeine use, averag e drinks per day 0 /d [employer] passive cigarette sm paula exposure no [employer] smoking status Never smoker [employer] social history reviewed E&M revi ewed - no changes required Ari Bhandari exercise type gym [facility] alcohol use no [facility] caffeine use, averag e drinks per day 0 /d [facility] drug use none [facility] passive cigarette sm paula exposure no [facility] smoking status Never smoker [facility] number of grandchildren Macario Pantoja social history reviewed E&M revi ewed - no changes required Jeremy Pantoja social history E&M Marital Statu s: [...] Gerson Sanders smoking status Never smoker Macario plaacio MD social history reviewed E&M inga ewed [...] Gonzalo Rosado smoking, year quit 1986 Gonzalo bugros smoking status former smoker Gonzalo delgado MENTAL [...] Payer name Policy type / Coverage type [place] red democrat ID [facility] [id number] 1 ADVANCE DIRECTIVES Name Date DISCUSSED - NO DECISION MADE TREATMENT PLAN Date Name Performer [id number],W, Macario arzate MD [id number],W, Reviewed monitor results s evere side effects [...] Take 1 tablet daily Macario Kent MD [id number],W, Reviewed monitor results s evere side effects [...] Take 1 tablet daily Macario Kent MD [id number],C,A dvised her to monitor her BP at home for now, reduce sodium intake. She says her BP has been better controlled at home. BP today: 170/100 P rior BP: 158/92 (10/25/2022) Labs Reviewed: C reat: 0.89 (03/10/2021) C hol: 250 (03/10/2021) HDL: 65 (03/10/2021) Fidel medzai [id number],S, Fidel medza i [id number],C, N o CP Fidel Ahmedzai [id number],C, C linically compensated Fidel medzai [id number],C, i n Sinus rhythm She thinks she is experiencing AFIB episodes and palpitations. Will increase his Flecainide to 100 mg BID to better control of HR and these episodes. If she cannot tolerate increased dose of Flecainide, will consdier Tikosyn. W ill check holter at this time Fidel Ahmedzai [id number],C,Improved Fidel Ahmedzai [id number],C,No new episod es Fidel medzai [id number],C, C linically compensated Fidel Ahmedzai [id number],C,P robably due to her anxiety this morning, recommended she monitor it at home. 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 Take 1 tablet twice a day Macario Kent MD [id number],C, H er updated medication list for this problem includes: Lisinopril 10 Mg Tablet (Lisinopril) ..... Take 1 tablet daily Cartia Xt 180 Mg Capsule,extended Release 24hr (Diltiazem hcl) ..... Take 1 capsule by mouth every night Macario Kent MD [id number],W, H er updated medication list for this problem includes: Flecainide 50 Mg Tablet (Flecainide) ..... Take 1 tablet twice a day Lisinopril 10 Mg Tablet (Lisinopril) ..... Take 1 tablet daily Cartia Xt 180 Mg Capsule,extended Release 24hr (Diltiazem hcl) ..... Take 1 capsule by mouth every night Macario Kent MD [id number],W, Macario arzate MD [id number],C, O rders: P carline 21+ (CPT-90833) Macario Kent MD [id number],C, H er updated medication list for this problem includes: Flecainide 50 Mg Tablet (Flecainide) ..... Take 1 tablet twice a day Lisinopril 10 Mg Tablet (Lisinopril) ..... Take 1 tablet daily Cartia Xt 180 Mg Capsule,extended Release 24hr (Diltiazem hcl) ..... Take 1 capsule by mouth every night Orders: P carline 21+ (CPT-69386) S chedule Followup (*) Macario Kent MD [id number],C, H er updated medication list for this problem includes: Flecainide 50 Mg Tablet (Flecainide) ..... Take 1 tablet twice a day Lisinopril 10 Mg Tablet (Lisinopril) ..... Take 1 tablet daily Cartia Xt 180 Mg Capsule,extended Release 24hr (Diltiazem hcl) ..... Take 1 capsule by mouth every night Macario Kent MD [id number],C,W ill send in Levofloxacin and check CT head [facility] [id number],C,No CP [facility] [id number],C,No sxs curren tly [facility] [id number],C, B P today: 166/101 P rior BP: 139/76 (03/08/2022) Labs Reviewed: C reat: 0.89 (03/10/2021) C hol: 250 (03/10/2021) HDL: 65 (03/10/2021) [facility] [id number],C,weight loss a dvised [facility] [id number],C,Clinically co mpensated [facility] [id number],C,S he had a service consultant 04/2022 showing frequent Sinus Bradycardia, frequent Sinus [...] was Sinus Tachycardia @ 102bpm Fidel Núñezrodríguez [id number],S,in 6 months. Patrizia Carrion ELECTRONICS REPAIR TECHNICIAN [id number],S, H er updated medication list for this problem includes: Flecainide 50 Mg Tablet (Flecainide) ..... Take 1 tablet twice a day Lisinopril 10 Mg Tablet (Lisinopril) ..... Take 1 tablet once a day Cartia Xt 180 Mg Capsule,extended Release 24hr (Diltiazem hcl) ..... Take 1 capsule every night Patrizia Carrion ELECTRONICS REPAIR TECHNICIAN [id number],B,down 35 pound s Patrizia Carrion NP [id number],S, H er updated medication list for this problem includes: Lisinopril 10 Mg Tablet (Lisinopril) ..... Take 1 tablet once a day Cartia Xt 180 Mg Capsule,extended Release 24hr (Diltiazem hcl) ..... Take 1 capsule every night Patrizia Carrion NP [id number],B,i n NSR today. Her updated medication list for this problem includes: Flecainide 50 Mg Tablet (Flecainide) ..... Take 1 tablet twice a day Patrizia Carrion NP [id number],S, a ntibodies positive in 03/2021 E ncouraged her to get COVID vaccination as it has been 3 months. E xtensive discussion was done regarding COVID vaccine. Some of her hesitation comes from reported adverse reactions to vaccine in her family. After discussion she is giving it more consideration however still undecided. Blanka Macario [id number],B, d ietary sodium restriction and exercise advised. [...] capsule every night Orders: C omplete Echo (CPT-69910) A teo Duplex Ultrasound (CPT-50372) Blanka Macario [id number],C, s till has palpitations H er updated medication list for this problem includes: Lisinopril 10 Mg Tablet (Lisinopril) ..... Take 1 tablet once a day Cartia Xt 180 Mg Capsule,extended Release 24hr (Diltiazem hcl) ..... Take 1 capsule every night Flecainide 50 Mg Tablet (Flecainide) ..... Take 1 tablet twice a day Orders: E KG (CPT-07778) H olter Monitor 48 hr (CPT-54174) Blanka Macario [id number],W, p alpitations Orders: M onitor - Telemetry (Mobile Cardiac) (CPT-84120) Her updated medication list for this problem includes: Lisinopril Tabs 10mg (Lisinopril) ..... Take 1 tablet daily Aspirin 81 Mg Oral Tablet (Aspirin) ..... One tab. daily Diltiazem Hcl Er(cartia Xt)cp 180mg (Diltiazem hcl coated beads) ..... Take 1 capsule at bedtime Flecainide Acet Tabs 50mg (Flecainide acetate) ..... Take 1 tablet twice a day Blanka Macario [id number],C, a ntibodies positive in 03/2021 E ncouraged her to get COVID vaccination as it has been 3 months. Blanka Macario [id number],W, O rders: C OVID19 Rapid POC (CPT-37225) Blanka Macario Telehealth: H er updated medication list for this problem includes: Flecainide 50 Mg Tablet (Flecainide) ..... 1 tablet by mouth twice a day Lisinopril 10 Mg Tablet (Lisinopril) ..... Take 1 tablet daily Diltiazem Hcl 30 Mg Tablet (Diltiazem hcl) ..... 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 r emains on [...] bp has been better 130's140's/60's70's. today: 142/86. & #13;reviewed low salt diet. will add magnesium oxide 400mg daily Maxine Dwyer ELECTRONICS REPAIR TECHNICIAN Electrophysiology:in SR. 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 Take 1 tablet twice a day Lisinopril 10 Mg Tablet (Lisinopril) ..... Take 1 tablet daily Cartia Xt 180 Mg Capsule,extended Release 24hr (Diltiazem hcl) ..... Take 1 capsule by mouth every night Orders: P carline 21+ (CPT-32165) S chedule Followup (*) Macario Kent MD [...] send in Levofloxacin and check CT head Fideltyra Sy Electrophysiology:No CP Fidel valiente Electrophysiology:No sxs current ly Fideltyra Sy Electrophysiology: B P today: 166/101 P rior BP: 139/76 (03/08/2022) Labs Reviewed: C reat: 0.89 (03/10/2021) C hol: 250 (03/10/2021) HDL: 65 (03/10/2021) Fidel Sy Electrophysiology:weight loss ad vised Fideltyra Sy Electrophysiology:Clinically com pensated [facility] Electrophysiology:Sh e had a service consultant 04/2022 showing frequent Sinus Bradycardia, frequent Sinus [...] Fidel Sy Cardiology:in 6 months. Patrizia tripp ELECTRONICS REPAIR TECHNICIAN Cardiology: H er updated medication list for [...] capsule every night Orders: C omplete Echo (CPT-39223) A teo Duplex Ultrasound (CPT-46113) Blanka Macario Electrophysiology: s tate has palpitations H er updated medication list for this problem includes: Lisinopril 10 Mg Tablet (Lisinopril) ..... Take 1 tablet once a day Cartia Xt 180 Mg Capsule,extended Release 24hr (Diltiazem hcl) ..... Take 1 capsule every night Flecainide 50 Mg Tablet (Flecainide) ..... Take 1 tablet twice a day Orders: E KG (CPT-23153) H olter Monitor 48 hr (CPT-25525) Blanka Macario Telehealth: p alpitations Orders: M onitor - Telemetry (Mobile Cardiac) (CPT-33218) Her updated medication list for this problem [...] Telehealth: O rders: C OVID19 Rapid POC (CPT-19129) Blanka Macario Electrophysiology 15 : O rders: C OMPREHENSIVE METABOLIC PANEL, W/EGFR (37142) C BC (H/H, RBC, INDICES, WBC, PLT) (1759) L IPID PANEL (7600) T SH, free T4, total T3 (7444) C ortisol (872384) Blanka Macario Electrophysiology 15 : d ietary [...] antibodies checked. Orders: C ovid Antibody Igg (37122) C ovid Antibody IgM (LC) (581226) C ovid Antibody IgA (LC) (209990) C OVID19 High Affinity Antibodies (LC) (640368) Blanka Macario Electrophysiology 15 : D enies [...] did not submit a diary. N ormal. Hemantewstacey Macario Telehealth:Advised r educed sodium intake and [...] beads) ..... Take 1 capsule at bedtime [facility] Telehealth:Denies of any palpitations. H er updated [...] day Orders: H olter Monitor 48 hr (CPT-00462) C omplete Echo (CPT-87359) [facility] Telehealth:Denies of any palpitations. H er updated [...] day Orders: H olter Monitor 48 hr (CPT-94440) C omplete Echo (CPT-63227) [facility] Telehealth:Denies of any palpitations. H er updated medication list for this problem includes: Aspirin 81 Mg Oral Tablet (Aspirin) ..... One tab. daily Flecainide Acet Tabs 50mg (Flecainide acetate) ..... Take 1 tablet twice a day Orders: H olter Monitor 48 hr (CPT-63446) C omplete Echo (CPT-94498) Wellington Nataliia Electrophysiology [facility] Electrophysiology: H er updated medication list for this problem includes: Lisinopril 10 Mg Oral Tablet (Lisinopril) ..... One tab. daily Aspirin 81 Mg Oral Tablet (Aspirin) ..... One tab. daily Cardizem Cd 180 Mg Oral Capsule Extended Release 24 Hour (Diltiazem hcl coated beads) ..... One tab at bedtime Orders: 9 9215 HIGH Complex (CPT-75034) M obile Cardiac Tele (CPT-03166) [facility] Electrophysiology: B P today: 120/80 P rior BP: 130/90 (05/01/2018) Labs Reviewed: Anthony reat: 1.13 (11/08/2012) Her updated medication list for this problem includes: Lisinopril 10 Mg Oral Tablet (Lisinopril) ..... One tab. daily Aspirin 81 Mg Oral Tablet (Aspirin) ..... One tab. daily Cardizem Cd 180 Mg Oral Capsule Extended Release 24 Hour (Diltiazem hcl coated beads) ..... One tab at bedtime Orders: 9 9215 HIGH Complex (CPT-31173) [facility] Electrophysiology: H er updated medication list for [...] tablet twice a day Orders: E KG (CPT-23874) 9 9215 HIGH Complex (CPT-35282) M obile Cardiac Tele (CPT-52802) [facility] Electrophysiology: H er updated medication list for this problem includes: Aspirin 81 Mg Oral Tablet (Aspirin) ..... One tab. daily Flecainide Acetate 50 Mg Oral Tablet (Flecainide acetate) ..... One tablet twice a day Orders: 9 9215 HIGH Complex (CPT-05005) M obalicia Cardiac Tele (CPT-33965) Ari Bhandari Electrophysiology Follow up Sam Pantoja [...] tablet twice a day Jeremy Pantoja Electrophysiology follow up Nick Kent MD Electrophysiology follow up Nick Kent MD Electrophysiology fo llow up:EKG today showed sinus rhythm Macario Kent MD Cardiology faxed 11/04/16:[id number] -VASc score is 1. Kody Stuart Cardiology faxed 11/04/16:[id number] -VASc score is 1. Kody Stuart Cardiology faxed 10/08 :Orders: F VC - 57287 (70108) F RC - 97625 (50329) D LCO - 73618 (20064) X -Ray, Chest, PA & Lateral (CPT-12651) Kody Stuart Cardiology faxed 10/08 :Her updated medication list for this problem includes: Lisinopril 10 Mg Tabs (Lisinopril) ..... One tab. daily Aspirin 81 Mg Tabs (Aspirin) ..... One tab. daily Cardizem Cd 180 Mg [id number] (Diltiazem hcl coated beads) ..... One tab at bedtime Flecainide Acetate 50 Mg Tabs (Flecainide acetate) ..... One tablet twice a day Kody Stuart Cardiology faxed 10/08 :Her updated medication list for this problem includes: Lisinopril 10 Mg Tabs (Lisinopril) ..... One tab. daily Aspirin 81 Mg Tabs (Aspirin) ..... One tab. daily Cardizem Cd 180 Mg [id number] (Diltiazem hcl coated beads) ..... One tab at bedtime Flecainide Acetate 50 Mg Tabs (Flecainide acetate) ..... One tablet twice a day Kody Stuart EP faxed 09/20/15: H er updated medication list for this problem includes: Lisinopril 10 Mg Tabs (Lisinopril) ..... One tab. daily Aspirin 81 Mg Tabs (Aspirin) ..... One tab. daily Cardizem Cd 180 Mg [id number] (Diltiazem hcl coated beads) ..... One tab [...] One tab. daily Cardizem Cd 180 Mg [id number] (Diltiazem hcl coated beads) ..... One tab at bedtime Flecainide Acetate 50 Mg Tabs (Flecainide acetate) ..... One tablet twice a day Macario Kent MD fu faxed 03/03/15 154 5: H er updated medication list for this problem includes: Aspirin 81 Mg Tabs (Aspirin) ..... One tab. daily Flecainide Acetate 50 Mg Tabs (Flecainide acetate) ..... One tablet twice a day Orders: Dyana TREVIZO (CPT-51006) Macario Kent MD fu faxed 03/03/15 1545 [...] One tab. daily Cardizem Cd 180 Mg [id number] (Diltiazem hcl coated beads) ..... One tab [...] Chest, PA & L ateral DLCO - 53092 FRC - 55111 FVC - 36782 Complete Echo Holter Monitor 24 Hr Holter [...] EKG Macario quinonez MD completed EKG Macario Marcos s MD completed Schedule Followup ulius Jose lang MD completed EKG ulius Priti quinonez MD completed EKG ulius Priti quinonez MD completed Holter, 24 or 48 Saulius Michael salvador MD completed EKG ulius Priti quinonez MD completed EKG ulius Priti quinonez MD completed EKG ulius Priti quinonez MD completed Schedule Followup Saulius Jose lang MD in 1 year completed Holter, 24 or 48 ulius Michael salvador MD completed EKG ulius Priti quinonez MD completed SNOMED-CT: [id number] Current Medications Documented ulius Donte MONREAL completed FVC - 97858 Macario quinonez MD completed FRC - 06965 ulius Priti quinonez MD completed DLCO - 05754 ulius Priti quinonez MD completed EKG ulius Priti quinonez MD completed SNOMED-CT: [id number] Current Medications Documented ulius Donte MONREAL completed Holter, 24 or 48 ulius Michael salvador MD completed Schedule Followup ulius Jose lang MD 1 year completed EKG ulius Priti quinonez MD completed SNOMED-CT: [id number] Current Medications Documented Saulius Donte MONREAL completed Holter, 24 or 48 Js Ibarra MD co mpleted EKG ulius Priti quinonez MD completed Schedule Followup ulius Jose lang MD in 6 months completed EKG ulius Priti quinonez MD completed Schedule Followup ulius Jose lang MD fu with SK in 12 months completed EKG ulius Priti quinonez MD completed Schedule Followup ulius Jose lang MD fu in 6 months [...] completed Schedule Followup ulius Jose lang MD completed EKG Macario quinonez MD [...]
--- OUTSIDE RECORDS SUMMARY | 2025-02-07 22:51 | XMS_ITS | Encounter Summary ---
Author Organization [facility] Healthcare Address [facility] [place] [address] Care Team Providers Care Career Development Coordinator/Teacher Name Role Phone Fran Shepard MD Primary Care Provider [phone] Reason for Referral * Diagnostic Imaging (Routine) - Closed Specialty Diagnoses / Procedures Referred By Contac t Referred To Contact Diagnoses Pain of left lower extremity Procedures US Vein Duplex Lower Extremity Left Limited Fran Shepard MD [address] [employer] [address] [address] Phone: tel: fax: [address] [address] Referral ID Status Reason Start Date Expiration Date Visits Re quested Visits Authorized [id number] Closed 07/22/2019 01/30/2021 1 1 Encounter Details Date Type Department Care Team (Late st Contact Info) Description 07/22/2019 Orders Only Internal Medicine Fran Shepard MD [address] [place] [address] Pain of left lower extremity (Primary Dx) Social History Tobacco Use Types Packs/Day Years Used Date Smoking Tobacco: Former Smokeless Tobacco: Never Alcohol Use Standard Drinks/Week Comments No 0 (1 standard drink = 0.6 oz pur e alcohol) Comments Unknown Sex and Gender Information Value Date Recorded Sex Assigned at Not on file Legal Sex Female 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 Findings: Performing Recruiting Manager: Ramona Pearson RVT. Left: Venous Doppler signals [...] performed. Electronically Signed By: Anil Sadler MD [facility] 2019-07-22 15:47:05 CDT CC: CC: Procedure Note Anil Sadler MD - 07/22/2019 [facility] - Department of Vascular Surgery,Vascular Laboratory [address] [place] [address] Lower Extremity Venous Ultrasound Report Patient Name: NGOZI MCGHEE R : 1950 (68y 11m) Study Date: 07/22/2019 3:10:17 PM Gender: F Tech: ELVIRA Location: [facility] Ref.Provider: FRAN SHEPARD Quality: Adequate Order Provider: FRAN SHEPARD Procedures: Vascular Report: Venous Duplex imaging was performed in the left lower extremity. Thecommon femoral, femoral, popliteal, posterior tibial, peroneal veins were evaluated forpatency, spontaneity and phasicity with Doppler, compression and augmentationmaneuvers. Great saphenous vein proximal at the junction was evaluated with compressionmaneuvers. Indications: Pain in left leg. Findings: Performing Recruiting Manager: Ramona Pearson RVT. Left: Venous Doppler signals [...] performed. Electronically Signed By: Anil Sadler MD [facility] 2019-07-22 15:47:05 CDT CC: CC: Fran Shepard MD IM US PROCEDURES Final Resul t documented in this encounter Visit Diagnoses Diagnosis Pain of left lower extremity- Primary Pain of left lower extremity documented in this encounter Additional Health Concerns Infection Onset Date Last Indicated Resolved Time COVID: Suspected 09/12/2020 09/12/2020 09/13/2020 7:07 PM WASTE WATER WORKER COVID19 09/12/2020 09/12/2020 09/26/2020 3:07 AM WASTE WATER WORKER documented as of this encounter Care Teams Career Development Coordinator/Teacher Relationship Specialty Start Date End Date Fran Shepard MD [address] [place] [address] PCP - General Internal Medicine 06/01/18 documented as of this encounter
--- OUTSIDE RECORDS SUMMARY | 2025-02-07 22:51 | XMS_ITS | Clinical Summary ---
Author Organization [facility] Address [facility] [place] [address] Care Team Providers Care Safety Companion Name Role Phone Scotty Shepard MD Primary Care Provider [phone] Allergies Active Allergy Reactions Criticality Noted Date [...] refills Assessment & Plan (11/27/2023 3:30 PM STILL OPERATOR BRANDY): Trial Elavil 10mg HS Assessment & Plan (05/28/2023 12:00 PM CDT): Using Xanax 0.25mg HS and PRN - continue (discussed use, safety, s/e and dependency risks) Counseling We discussed possible SSRI/SRNI use, declines at this time Assessment & Plan (10/16/2022 2:40 PM STILL OPERATOR BRANDY): Elevated BP most certainly related to elevated [...] 02/26/2024 Assessment & Plan (11/27/2023 3:28 PM STILL OPERATOR BRANDY): Mupirocin x 1 week Immunizations Immunization Administration [...] on file Legal Sex Female 3:03 AM STILL OPERATOR BRANDY Gender Identity Female 09/18/2023 1:09 PM STILL OPERATOR BRANDY Sexual Orientation Not on file Obstetrics History [...] [facility] Address: [address] [place] [address] MEDICARE Care Teams Safety Companion Relationship Specialty Start Date End Date Scotty Shepard MD [address] [facility] [address] [place] [address] PCP - General Internal Medicine 06/01/18
--- OUTSIDE RECORDS SUMMARY | 2025-02-07 22:51 | XMS_ITS | Referral Summary ---
Author Organization [facility] Address [facility] [place] [address] Care Team Providers Care Documentation Nurse Name Role Phone Scotty Shepard MD Primary Care Provider [phone] Allergies Active Allergy Reactions Criticality Noted Date [...] refills Assessment & Plan (11/27/2023 3:30 PM AIR TANK ASSEMBLER): Trial Elavil 10mg HS Assessment & Plan (05/28/2023 12:00 PM CDT): Using Xanax 0.25mg HS and PRN - continue (discussed use, safety, s/e and dependency risks) Counseling We discussed possible SSRI/SRNI use, declines at this time Assessment & Plan (10/16/2022 2:40 PM AIR TANK ASSEMBLER): Elevated BP most certainly related to elevated [...] 02/26/2024 Assessment & Plan (11/27/2023 3:28 PM AIR TANK ASSEMBLER): Mupirocin x 1 week Immunizations Immunization Administration [...] on file Legal Sex Female 3:03 AM AIR TANK ASSEMBLER Gender Identity Female 09/18/2023 1:09 PM AIR TANK ASSEMBLER Sexual Orientation Not on file Last Filed [...] dysphagia COLONOSCOPY Encounter for screening colonoscopy [place] [address] MEDICARE BLUE ACC CHOICE OOS [employer] ACCESS OOS MEDICARE Care Teams Documentation Nurse Relationship Specialty Start Date End Date Scotty Shepard MD [address] [facility] [address] [place] [address] PCP - General Internal Medicine 06/01/18
--- OUTSIDE RECORDS SUMMARY | 2025-02-07 22:51 | XMS_ITS | Continuity of Care Document ---
Author Organization [facility] Address [address] [facility] [address] [place] [address] Phone Care Team Providers Care Finance Analyst Name Role Phone Dane Romero Unavailable Unavailable Procedures Procedure Date Office/outpatient Visit, Est Office/outpatient Visit, Est Eye Exam, New Patient Advance Directives Directive Yes / No Effective Date File Name No Information Encounters Encounter Description Practice Location Reason(s) For Visit Diagnoses Date Provider Providers Copied on Encounter [place] [facility] [place] [address] [place] [address] [address], [place], [place], [id number], [place] tel:[phone] [facility] No Information [phone] Krishnasamy Dane. [address] [address], [place], [place], [facility], [place]. tel:[phone] [place] [facility] [place] [address] [place] [address] [address], [place], [place], [id number], [place] tel:[phone] [facility] No Information 5-201 0 Krishnasamy Dane. [address] [facility] [address], [place], [address], [place]. tel:[phone] [facility], [address] [place] [address] [address], [place], [place], [id number], [place] tel:[phone] [facility] No Information [phone] [phone] Krishnasamy Dane. [address], [address], [place]. tel:[phone] Family History Family Member Type Diagnosis Age [...]
--- NOTE | 2025-02-07 22:59 | ED.ARRPALP ---
HPI - Arrhythmia/Palpitations General Chief Complaint: Arrhythmia/Palpitations Stated Complaint: not feeling good for 6 weeks Time Seen by Provider: 02/07/25 22:30 History of Present Illness HPI narrative: Patient has history of AFib with multiple ablations and for last few has been extremely stressed, and has been having more episodes of SVT, she has been taking her medications as prescribed. Today her heart rate went up around 8:00 p.m. and has not come back down despite trying Valsalva and diltiazem at home. Related Data Home Medications ?Medication ?Instructions ?Recorded ?Confirmed ?Last Taken ?Type alprazolam 0.5 mg tablet 0.5 mg PO PRN 11/23/19 07/30/23 10/15/22 History lisinopril 10 mg tablet 10 mg PO DAILY 11/23/19 07/30/23 Unknown History cetirizine 10 mg tablet (Zyrtec) 10 mg PO DAILY PRN 07/30/23 07/30/23 Unknown History flecainide 100 mg tablet mg PO 07/30/23 07/30/23 Unknown History amitriptyline 10 mg tablet 10 mg PO QHS 08/04/24 Unknown History apixaban 2.5 mg tablet (Eliquis) 2.5 mg PO BID 08/04/24 Unknown History diltiazem HCl 60 mg tablet 30 mg PO ONCE 08/04/24 Unknown History Allergies Allergy/AdvReac Type Severity Reaction Status Date / Time adhesive Allergy Mild Redness of Verified 02/07/25 21:56 Skin ciprofloxacin Allergy Unknown Palpitation Verified 02/07/25 21:56 s clarithromycin Allergy Unknown Palpitation Verified 02/07/25 21:56 s metronidazole Allergy Unknown Palpitation Verified 02/07/25 21:56 s amiodarone Allergy Dizziness Verified 02/07/25 21:56 prednisone Allergy Palpitation Verified 02/07/25 21:56 s morphine AdvReac Mild SEVERE Verified 02/07/25 21:56 NAUSEA AND VOMITING Review of Systems Review of Systems: All systems reviewed & are unremarkable except as noted in HPI and below PMFSH Past Medical History Medical History A-fib Anxiety Breast lesion Diverticulitis Hernia 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 use of blood thinners aspirin 81mg Hypertension Screening mammogram, encounter for Seasonal allergies UTI (urinary tract infection) Surgical History Surgical History H/O foot surgery bilateral H/O hernia repair (~1980) double hernia repair History of breast biopsy 2000 benign 2006 benign, foreign object removed (wire from needle bx in 200) 2008 benign History of cardiac radiofrequency ablation (~2012) x2 History of cholecystectomy History of tubal ligation (~1980) Hx of section x2 Family History Family History Mother Malignant tumor of ovary Malignant tumor of thyroid gland Cirrhosis of liver Social History Social History (Updated 08/04/24 @ 10:58 by BEBETO Kumar) Smoking status: Never smoker Second hand tobacco smoke exposure: No Alcohol intake: never Substance use: never Substance use type: does not use Do You Feel Safe in your Home?: Yes Lack of Transportation: No Current Housing: I Have Housing Concerned About Future Housing: No Difficulty Paying Gas/Electric Bills: No Difficulty Paying for Meds: No Currently Unemployed: No Education: High School Diploma/GED Difficulty w/ Childcare or Family Care: No Living arrangements: with family Additional living arrangements comments: Occupation/Education: retired Gender identity (if verbalized by the patient): Female Sexual Orientation (if Verbalized by the Patient): Straight or Heterosexual Exam Narrative: EXAMINATION OF ORGAN SYSTEMS/BODY AREAS: Constitutional: Vital signs per nursing GENERAL:[No acute distress, non-toxic appearing.] HEAD: Normal with no signs of head trauma. EYES: EOMI, conjunctiva normal ENT: Hearing grossly intact LUNGS: Nonlabored breathing. HEART: Tachycardic ABD: [Soft], [nontender to palpation] EXT: Normal range of motion SKIN: [No rashes or lesions.] NEURO: [Alert and oriented x 3. No gross focal sensory or strength deficits.] PSYCH: Normal affect Course Vital Signs Vital signs: Vital Signs Pulse Rate 165 H 02/07/25 21:56 Respiratory Rate 02/07/25 21:56 Blood Pressure 145/105 H 02/07/25 21:56 Pulse Oximetry 95 02/07/25 21:56 Oxygen Delivery Room Air 02/07/25 21:56 Pulse Rate 165 H 02/07/25 21:56 Respiratory Rate 20 02/07/25 21:56 Blood Pressure 145/105 H 02/07/25 21:56 Pulse Oximetry 95 02/07/25 21:56 Oxygen Delivery Room Air 02/07/25 21:56 MDM - Arrhythmia/Palpitations MDM Narrative Medical decision making narrative: Patient presenting with palpitations, has history of AFib and SVT, she is in SVT here with rate 160s on initial triage EKG on my independent interpretation she is in SVT rate 164, QRS 90, QTC 425, no ST elevations or depressions or signs of acute ischemia, she is in arrhythmia. She is agreeable to trying Cardizem here since she is already taking Cardizem, and she already is on blood thinners, thankfully with IV push she did convert, as seen on telemetry on my independent interpretation normal sinus rhythm rate 80s to 90s.. She now feels much better, denies any complaints or symptoms. Repeat EKG on my independent interpretation shows sinus rhythm rate 89, normal [place], QRS, QTC, no ST elevations depressions or signs of acute ischemia or arrhythmia. She is given additional 30 mg Cardizem p.o. here since she already took 30 mg at home, and will be discharged and stable condition with follow-up to rn clinical coordinator. Patient agreeable to this plan Lab Data 02/07/25 22:17 02/07/25 22:17 Labs: Lab Results 02/07/25 Range/Units 22:17 WBC 7.1 (4.5-10.0) K/mm3 RBC 4.70 (4.2-5.4) M/mm3 Hgb 14.3 (12.0-15.0) g/dL Hct 44.9 (37.0-47.0) % MCV 95.5 (80-100) fl MCH 30.4 (26-34) pg MCHC 31.8 L (32-36) g/dl RDW 12.5 (11.5-14.5) % Plt Count 218 (150-375) k/mm3 MPV 10.4 (7.4-10.4) fl Immature Gran % (Auto) 0.4 (0-0.5) % Neut % (Auto) 50.4 (45.5-73.1) % Lymph % (Auto) 38.4 (18.3-44.2) % Christian % (Auto) 9.4 H (2.6-8.5) % Eos % (Auto) 0.7 (0-4.4) % Baso % (Auto) 0.7 (0.2-1.2) % Lymph # (Auto) 2.72 (0.9-3.2) K/mm3 Christian # (Auto) 0.7 H (0.1-0.6) K/mm3 Eos # (Auto) 0.1 (0-0.3) K/mm3 Baso # (Auto) 0.1 (0.0-0.1) K/mm3 Abs Immat Gran (auto) 0.03 (0.00-0.031) K/mm3 Absolute Neuts (auto) 3.6 (1.3-6.7) K/mm3 Absolute Nucleated RBC 0.000 (0.0-0.012) K/mm3 Nucleated RBC % 0.0 (0.0-0.2) % PT 13.3 (11.1-14.7) Seconds INR 1.0 APTT 30.3 (22.3-36.8) Seconds Sodium 140 (137-145) mmol/L Potassium 4.0 (3.4-5.0) mmol/L Chloride 105 (98-107) mmol/L Carbon Dioxide 25 (22-30) mmol/L Anion Gap 10 (4-12) mmol/L BUN 12 (7-17) mg/dL Creatinine 0.92 (0.7-1.0) mg/dL Estim Creat Clear Calc 55 ml/min Estimated GFR 60 (59 - ) Glucose 144 H (65-110) mg/dL Calcium 9.0 (8.4-10.2) mg/dL Total Bilirubin 0.5 (0.2-1.3) mg/dL AST 31 (14-36) U/L ALT 30 (6-35) U/L Alkaline Phosphatase 119 (38-126) U/L Troponin I < 0.012 (0.000-0.034) ng/mL Total Protein 8.0 (6.3-8.2) g/dL Albumin 4.7 (3.5-5.1) g/dL Lipase 226 (23-300) U/L Critical Care Time Critical Care Time Critical Care Time: Yes Total Critical Care Time: 31 Discharge Plan Discharge Clinical Impression: Supraventricular tachycardia Patient Disposition: Home Condition: Stable Instructions: Supraventricular Tachycardia (ED) Additional Instructions: Please follow-up with your rn clinical coordinator, make sure to take your medications as prescribed, you can always return to the hospital for any further issues. Patient Language: Ukrainian Prescriptions: No Action cetirizine [Zyrtec] 10 mg tablet 10 mg PO DAILY PRN flecainide 100 mg tablet PO diltiazem HCl 60 mg tablet 30 mg PO ONCE Eliquis 2.5 mg tablet 2.5 mg PO BID amitriptyline 10 mg tablet 10 mg PO QHS alprazolam 0.5 mg tablet 0.5 mg PO PRN lisinopril 10 mg tablet 10 mg PO DAILY Follow-up/Referrals: Drea,Scotty Bello MD [Primary Care Provider] -
[2025-02-07 23:31] VITALS: BP 148/91; PULSE 78; RESP 14; TEMP 36.5; O2SAT 97
[2025-02-07] MEDS: dilTIAZem HCL 30 MG TABLET PO (23:31)
== END 2025-02-07 23:43 | disposition home or self-care (01) ==
PROVIDERS: Emergency Provider Emergency Medicine; PCP Internal Medicine
DX: I47.10 Supraventricular tachycardia, unspecified (principal); Z79.01 Long term (current) use of anticoagulants; I48.91 Unspecified atrial fibrillation; I10 Essential (primary) hypertension
CPT/HCPCS: 36415; 71045; 80053; 83690; 84484; 85025; 85610; 85730; 93005; 96374; 99284; A9270

== ENCOUNTER 2025-02-08 14:15 | Emergency (ER) | payer BC, SELFPAY ==
--- OUTSIDE RECORDS SUMMARY | 2025-02-08 14:19 | XMS_ITS | Clinical Summary ---
Author Organization [facility] Address [facility] [place] [address] Care Team Providers Care Diamond Expert Name Role Phone Scotty Shepard MD Primary Care Provider [phone] Allergies Active Allergy Reactions Criticality Noted Date [...] Comments Blood Pressure 146/89 09/23/2023 12:41 PM MORTUARY BEAUTICIAN Pulse 81 09/23/2023 12:25 PM MORTUARY BEAUTICIAN Temperature 36.8 C (98.2 F) 09/23/2023 12:25 PM MORTUARY BEAUTICIAN Respiratory Rate 20 09/23/2023 12:41 PM MORTUARY BEAUTICIAN Oxygen Saturation 94% 09/23/2023 12:41 PM MORTUARY BEAUTICIAN Inhaled Oxygen Concentration - - Weight 97.5 kg (215 lb) 09/18/2023 4:49 PM MORTUARY BEAUTICIAN Height 165.1 cm (5' 5 ) 09/18/2023 4:49 PM MORTUARY BEAUTICIAN Body Mass Index 35.78 09/18/2023 4:49 PM MORTUARY BEAUTICIAN Plan of Treatment Health Maintenance Due Date [...] patient's age to complete this topic Insurance [facility] Care Teams Diamond Expert Relationship Specialty Start Date End Date Scotty Shepard MD [address] [address] PCP - General INTERNAL MEDICINE 09/23/23
--- OUTSIDE RECORDS SUMMARY | 2025-02-08 14:19 | XMS_ITS | CONTINUITY OF CARE DOCUMENT ---
Author Name frank, frank Address Unknown Organization [facility] Address [address] [address] [place] [address] Phone [phone] Care Team Providers Care Incising Machine Operator Name Role Phone Donte MONREAL, Macario Unavailable FRAN DYE MD Unavailable FRAN DYE MD Unavailable [phone] PROBLEMS Condition Status Date Provider Notes Hx [...] In-person encounter Office Visit Macario Kent MD [facility] - In-person encounter Office Visit Macario Kent MD [facility] - In-person encounter Office Visit Macario Kent MD [facility] - In-person encounter Office Visit Macario Kent MD [facility] - In-person encounter Office Visit Macario Kent MD [facility] Sinus drainage - In-person encounter Office Visit Macario Kent MD [facility] Carotid bruit, bilateral - In-person encounter Office Visit Macario Kent MD [facility] - In-person encounter Office Visit Macario Kent MD [facility] Office - In-person encounter Office Visit Macario Kent MD [facility] Coronavirus infection 09/2020Fatigue - In-person encounter Office Visit Macario Kent MD [facility] - In-person encounter Office Visit Macario Kent MD [facility] ArthritisHTN - In-person encounter Office Visit Macario Kent MD [facility] - In-person encounter Office Visit Macario Kent MD [facility] SVT S/P ABLATION 11/18Atrial fib paroxysmal - in NSR Holter trial flutter S/P ablation 10/18 - In-person encounter Office Visit Macario Kent MD [facility] Atrial fib paroxysmal - in NSR Holter trial flutter S/P ablation 10/18 - In-person encounter Office Visit Macario Kent MD [facility] Atrial fib paroxysmal - in NSR Holter 10/22 - In-person encounter Office Visit Macario Kent MD [facility] Office Atrial fib paroxysmal - in NSR Holter trial flutter S/P ablation 10/18 - In-person encounter Office Visit Macario Kent MD [facility] - In-person encounter Office Visit Macario Kent MD [facility] - In-person encounter Office Visit Macario Kent MD [facility] - In-person encounter Office Visit Macario Kent MD [facility] ATRIAL FIB PAROXYSMAL-05/18 EVENT MX- SR HR 44-96 - In-person encounter Office Visit Macario Kent MD [facility] - In-person encounter Office Visit Macario Kent MD [facility] - In-person encounter Office Visit Macario Kent MD [facility] - In-person encounter Office Visit Macario Kent MD [facility] SHORTNESS OF BREATH - In-person encounter Office Visit Cristhian Edmond MD [facility] SVT S/P ABLATION 11/18 - In-person encounter Office Visit Macario Kent MD [facility] SVT S/P ABLATION 11/18DIZZINESS - In-person encounter Office Visit Roz Bob MD [facility] CHEST PAIN, NON-CARDIACPALPITATI ONSOBESITY VITAL SIGNS [...] blood pressure, cuff size large La paolo [place] blood pressure, diastolic 76 mm[Hg] La paolo Evon blood pressure, systolic 139 mm[Hg] Norris diazda [place] oxygen saturation, oximetry 95 % Lucero [place] respiratory rate E&M 18 /min Ligia brito Evon pulse rate 67 /min Lucero [place] weight E&M 190 [lb_av] Lucero [place] height E&M 63 [in_i] Lucero [place] Body Mass Index (Ratio) 39.85 kg/m2 Taew on Renaldo blood pressure, cuff size large Ke rri Jorge Luisuenenfmount [facility] hospital[facility] blood pressure, diastolic 74 mm[Hg] Ke rri uenenfmount [facility] hospital[facility] blood pressure, systolic 142 mm[Hg] Debi ri [facility] oxygen saturation, oximetry 95 % Sharita Kangcarlos manueljeanethchristus [facility] respiratory rate E&M 16 /min Sharita pino pulse rate 64 /min Sharita April [facility] weight E&M 225 [lb_av] Sharita Rodrígueze [facility] height E&M 63 [in_i] Sharita Jorge Luisandraee [facility] Body Mass Index (Ratio) 37.37 kg/m2 [place] on Renaldo blood pressure, cuff size regular Kr isnorberto Erika blood pressure, diastolic 78 mm[Hg] Kr isty Erika blood pressure, systolic 150 mm[Hg] Kri stpanchito [place] oxygen saturation, oximetry 97 % Fadumo [place] pulse rate 90 /min Fadumo Erika respiratory rate E&M 20 /min Fadumo Erika weight E&M 211 [lb_av] Fadumo Erika height E&M 63 [in_i] Fadumo [place] height E&M 63 [in_i] Wellington Fredote blood pressure, resting Yes Kill een Kent blood pressure, diastolic 80 mm[Hg] Amadou le Kent blood pressure, systolic 120 mm[Hg] Brian augustin [place] oxygen saturation, oximetry 98 % Elgin Kent respiratory rate E&M 16 /min Jen Kent pulse rate 77 /min Jen Kent height E&M 63 [in_i] Jen Kent Body Mass Index (Ratio) 39.32 kg/m2 Sam Pantoja blood pressure, cuff size large Ke rri Gruenenfmount [facility] hospital[facility] blood pressure, diastolic 90 mm[Hg] Ke rri Gruenenfelder blood pressure, systolic 130 mm[Hg] Debi ri Talnfmount [facility] hospital[facility] oxygen saturation, oximetry 96 % Sharita [...] /min Gonzalo Rosado weight E&M 188.06 [lb_av] Gnozalo Andrear an blood pressure, diastolic 92 mm[Hg] [...] Rhodes RN respiratory rate E&M 17 /min Simnoe fam RN weight E&M 188 [lb_av] Simone Rhodes RN Body Mass Index (Ratio) 34.13 kg/m2 Delgado i Lee blood pressure, diastolic 93 mm[Hg] Ke rri Lee blood pressure, systolic 148 mm[Hg] Debi hammonds Lee pulse rate 83 /min Sharita April rowleyer oxygen saturation, oximetry 99 % Sharita Lee respiratory rate E&M 17 /min Sharita G odette weight E&M 192 [lb_av] Sharita Apirl rowleyer height E&M 63 [in_i] Sharita April [...] 100-199 High platelet count 232 X10E3/UL [employer] [phone]/06 /05 red blood cell distribution width 13.0 [...] LinkLogic 3.5-5.2 sodium, serum 142 mmol/L [employer] [phone]/06 /05 urea nitrogen/creatinine ratio, serum 16 LinkLogic [...] Rhodes RN Normal platelet count 247 10*3/mm3 [facility] hematocrit, blood 47.3 % [facility] alanine aminotransferase (SGPT), serum 45 1/L [facility]rist [place] aspartate aminotransferase (SGOT), serum 26 1/L [facility] [place] creatinine, serum 1.13 mg/dL [facility] potassium, serum 4.0 mmol/L [facility]rist [place] sodium, serum 147 mmol/L [facility] [place] prothrombin time (patient) 25.1 s Sharita Howard international normalized ratio (INR) 2.5 Sharita Howard Normal coagulation managed by Simone Rhodes RN prothrombin time (patient) 36.8 s Anjum Brunomartin international normalized ratio (INR) 3.7 [facility] Normal prothrombin time (patient) 30.4 s Sharita Peraltaer international normalized ratio (INR) 3.0 Sharita Howard Normal platelet count 230 10*3/uL Jarredetrchristian Toure hematocrit, blood 45.7 % [facility] creatinine, serum 0.75 mg/dL [facility] [place] potassium, serum 4.9 mmol/L [facility] [place] sodium, serum 145 mmol/L [facility] coagulation managed by Simone Rhodes RN [...] i drug use none Maxine Henningzulay r [employer] ENGINE [employer]SEMBLER alcohol use no Maxine Henningzulay r [employer]ARY ENGINE ASSEMBLER passive cigarette sm paula exposure no Maxine Henningzulayr [employer]ARY ENGINE ASSEMBLER smoking, year quit 1986 Maxine Henningzulayr [employer]ARY ENGINE ASSEMBLER number of years as a smoker 5-9 Maxine Henningzulayr [employer]ARY ENGINE ASSEMBLER smoking history, tot al pack/year 12 Maxine Henningzulayr [employer]ARY ENGINE ASSEMBLER smoking history, tot al pack/day 1/2 ppd Maxine Henningzulayr [employer]ARY ENGINE ASSEMBLER cigarette use yes Maxine Henningdaria er [employer]ARY ENGINE ASSEMBLER smoking status Former smoker Maxine Henning dariaer [employer]ARY ENGINE ASSEMBLER Exercise counseling Yes Maxine Henningezekiel [employer]ARY ENGINE ASSEMBLER social history reviewed E&M revi ewed - [...] changes required Blanka Macario exercise type gym [employer] caffeine use, averag e drinks per day 0 /d [employer] passive cigarette sm paula exposure no [employer] smoking status Never smoker [employer] social history reviewed E&M revi ewed - no changes required Ari Bhandari exercise type gym [facility] alcohol use no [facility] caffeine use, averag e drinks per day 0 /d [facility] drug use none [facility] passive cigarette sm paula exposure no [facility] smoking status Never smoker [facility] number of grandchildren Macario Pantoja social history [...] Kent MD social history reviewed E&M reviewed iSmone Rhodes RN social history reviewed E&M reviewed [...] Payer name Policy type / Coverage type [place] red republican ID [facility] [id number] 1 ADVANCE DIRECTIVES Name Date DISCUSSED - NO DECISION MADE TREATMENT PLAN Date Name Performer [id number],W, Macario arzate MD [id number],W, Reviewed monitor results s evere side effects [...] Take 1 tablet daily Macario Kent MD [id number],W, Reviewed monitor results s evere side effects [...] Take 1 tablet daily Macario Kent MD [id number],C,A dvised her to monitor her BP at home for now, reduce sodium intake. She says her BP has been better controlled at home. BP today: 170/100 P rior BP: 158/92 (10/25/2022) Labs Reviewed: C reat: 0.89 (03/10/2021) C hol: 250 (03/10/2021) HDL: 65 (03/10/2021) Fidel medzai [id number],S, Fidel medza i [id number],C, N o CP Fidel Ahmedzai [id number],C, C linically compensated Fidel medzai [id number],C, i n Sinus rhythm She thinks she is experiencing AFIB episodes and palpitations. Will increase his Flecainide to 100 mg BID to better control of HR and these episodes. If she cannot tolerate increased dose of Flecainide, will consdier Tikosyn. W ill check holter at this time Fidel Ahmedzai [id number],C,Improved Fidel Ahmedzai [id number],C,No new episod es Fidel medzai [id number],C, C linically compensated Fidel Ahmedzai [id number],C,P robably due to her anxiety this morning, recommended she monitor it at home. BP today: 158/92 P rior BP: 166/101 (09/20/2022) Labs Reviewed: C reat: 0.89 (03/10/2021) C hol: 250 (03/10/2021) HDL: 65 (03/10/2021) Fidel [facility] [id number],C, N o CP S he had a normal echo today [facility] [id number],C,i n Sinus rhythm [facility] [id number],C,A flutter ablation on 10/16/[address] 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 Take 1 tablet twice a day Macario Kent MD [id number],C, H er updated medication list for this problem includes: Lisinopril 10 Mg Tablet (Lisinopril) ..... Take 1 tablet daily Cartia Xt 180 Mg Capsule,extended Release 24hr (Diltiazem hcl) ..... Take 1 capsule by mouth every night Macario Kent MD [id number],W, H er updated medication list for this problem includes: Flecainide 50 Mg Tablet (Flecainide) ..... Take 1 tablet twice a day Lisinopril 10 Mg Tablet (Lisinopril) ..... Take 1 tablet daily Cartia Xt 180 Mg Capsule,extended Release 24hr (Diltiazem hcl) ..... Take 1 capsule by mouth every night Macario Kent MD [id number],W, Macario arzate MD [id number],C, O rders: P carline 21+ (CPT-36174) Macario Kent MD [id number],C, H er updated medication list for this problem includes: Flecainide 50 Mg Tablet (Flecainide) ..... Take 1 tablet twice a day Lisinopril 10 Mg Tablet (Lisinopril) ..... Take 1 tablet daily Cartia Xt 180 Mg Capsule,extended Release 24hr (Diltiazem hcl) ..... Take 1 capsule by mouth every night Orders: P carline 21+ (CPT-02854) S chedule Followup (*) Macario Kent MD [id number],C, H er updated medication list for this problem includes: Flecainide 50 Mg Tablet (Flecainide) ..... Take 1 tablet twice a day Lisinopril 10 Mg Tablet (Lisinopril) ..... Take 1 tablet daily Cartia Xt 180 Mg Capsule,extended Release 24hr (Diltiazem hcl) ..... Take 1 capsule by mouth every night Macario Kent MD [id number],C,W ill send in Levofloxacin and check CT head [facility] [id number],C,No CP [facility] [id number],C,No sxs curren tly [facility] [id number],C, B P today: 166/101 P rior BP: 139/76 (03/08/2022) Labs Reviewed: C reat: 0.89 (03/10/2021) C hol: 250 (03/10/2021) HDL: 65 (03/10/2021) [facility] [id number],C,weight loss a dvised [facility] [id number],C,Clinically co mpensated [facility] [id number],C,S 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 Patrizia Carrion ROTARY ENGINE ASSEMBLER [id number],S, H er updated medication list for this problem includes: Flecainide 50 Mg Tablet (Flecainide) ..... Take 1 tablet twice a day Lisinopril 10 Mg Tablet (Lisinopril) ..... Take 1 tablet once a day Cartia Xt 180 Mg Capsule,extended Release 24hr (Diltiazem hcl) ..... Take 1 capsule every night Patrizia Carrion ROTARY ENGINE ASSEMBLER [id number],B,down 35 pound s Patrizia Carrion NP [id number],S, H er updated medication list for this problem includes: Lisinopril 10 Mg Tablet (Lisinopril) ..... Take 1 tablet once a day Cartia Xt 180 Mg Capsule,extended Release 24hr (Diltiazem hcl) ..... Take 1 capsule every night Patrizia Carrion NP [id number],B,i n NSR today. Her updated medication list for this problem includes: Flecainide 50 Mg Tablet (Flecainide) ..... Take 1 tablet twice a day Patrizia Carrion NP [id number],S, a ntibodies positive in 03/2021 E ncouraged her to get COVID vaccination as it has been 3 months. E xtensive discussion was done regarding COVID vaccine. Some of her hesitation comes from reported adverse reactions to vaccine in her family. After discussion she is giving it more consideration however still undecided. Blanka Macario [id number],B, d ietary sodium restriction and exercise advised. [...] capsule every night Orders: C omplete Echo (CPT-63720) A teo Duplex Ultrasound (CPT-95520) Blanka Macario [id number],C, s till has palpitations H er updated medication list for this problem includes: Lisinopril 10 Mg Tablet (Lisinopril) ..... Take 1 tablet once a day Cartia Xt 180 Mg Capsule,extended Release 24hr (Diltiazem hcl) ..... Take 1 capsule every night Flecainide 50 Mg Tablet (Flecainide) ..... Take 1 tablet twice a day Orders: E KG (CPT-97835) H olter Monitor 48 hr (CPT-82796) Blanka Macario [id number],W, p alpitations Orders: M onitor - Telemetry (Mobile Cardiac) (CPT-48976) Her updated medication list for this problem includes: Lisinopril Tabs 10mg (Lisinopril) ..... Take 1 tablet daily Aspirin 81 Mg Oral Tablet (Aspirin) ..... One tab. daily Diltiazem Hcl Er(cartia Xt)cp 180mg (Diltiazem hcl coated beads) ..... Take 1 capsule at bedtime Flecainide Acet Tabs 50mg (Flecainide acetate) ..... Take 1 tablet twice a day Blanka Macario [id number],C, a ntibodies positive in 03/2021 E ncouraged her to get COVID vaccination as it has been 3 months. Blanka Macario [id number],W, O rders: C OVID19 Rapid POC (CPT-66297) Blanka Macario Telehealth: H er updated medication list for this problem includes: Flecainide 50 Mg Tablet (Flecainide) ..... 1 tablet by mouth twice a day Lisinopril 10 Mg Tablet (Lisinopril) ..... Take 1 tablet daily Diltiazem Hcl 30 Mg Tablet (Diltiazem hcl) ..... Take 1 tablet by mouth twice a day Orders: M inor Telehealth (CPT-47720) Macario Kent MD Electrophysiology Fideltyra Sy Electrophysiology: [...] Electrophysiology: A flutter ablation on 10/16/[address] 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 r emains on [...] add magnesium oxide 400mg daily Maxine Dwyer ROTARY ENGINE ASSEMBLER Electrophysiology:in SR. Her updated medication list for [...] Fidel Sy Telehealth:Aflutter ablation on 10/16/[address] 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 Take 1 tablet twice a day Lisinopril 10 Mg Tablet (Lisinopril) ..... Take 1 tablet daily Cartia Xt 180 Mg Capsule,extended Release 24hr (Diltiazem hcl) ..... Take 1 capsule by mouth every night Orders: P carline 21+ (CPT-82367) S chedule Followup (*) Macario Kent MD [...] vised Fideltyra Sy Electrophysiology:Clinically com pensated Fidel [facility] Electrophysiology:Sh e had a cosmetic sales 04/2022 showing frequent Sinus Bradycardia, frequent Sinus [...] Fidel Sy Cardiology:in 6 months. Patrizia tripp ROTARY ENGINE ASSEMBLER Cardiology: H er updated medication list for [...] capsule every night Orders: C omplete Echo (CPT-67125) A teo Duplex Ultrasound (CPT-61282) Blanka Macario Electrophysiology: s tate has palpitations H er updated medication list for this problem includes: Lisinopril 10 Mg Tablet (Lisinopril) ..... Take 1 tablet once a day Cartia Xt 180 Mg Capsule,extended Release 24hr (Diltiazem hcl) ..... Take 1 capsule every night Flecainide 50 Mg Tablet (Flecainide) ..... Take 1 tablet twice a day Orders: E KG (CPT-62244) H olter Monitor 48 hr (CPT-34514) Blanka Macario Telehealth: p alpitations Orders: M onitor - Telemetry (Mobile Cardiac) (CPT-25797) Her updated medication list for this problem [...] Telehealth: O rders: C OVID19 Rapid POC (CPT-20435) Blanka Macario Electrophysiology 15 : O rders: C OMPREHENSIVE METABOLIC PANEL, W/EGFR (14987) C BC (H/H, RBC, INDICES, WBC, PLT) (1759) L IPID PANEL (7600) T SH, free T4, total T3 (7444) C ortisol (682827) Blanka Macario Electrophysiology 15 : d ietary [...] antibodies checked. Orders: C ovid Antibody Igg (65630) C ovid Antibody IgM (LC) (926977) C ovid Antibody IgA (LC) (575539) C OVID19 High Affinity Antibodies (LC) (956828) Blanka Macario Electrophysiology 15 : D enies [...] beads) ..... Take 1 capsule at bedtime [facility] Telehealth:Denies of any palpitations. H er [...] day Orders: H olter Monitor 48 hr (CPT-85509) C omplete Echo (CPT-97679) [facility] Telehealth:Denies of any palpitations. H er [...] day Orders: H olter Monitor 48 hr (CPT-27680) C omplete Echo (CPT-62323) [facility] Telehealth:Denies of any palpitations. H er updated medication list for this problem includes: Aspirin 81 Mg Oral Tablet (Aspirin) ..... One tab. daily Flecainide Acet Tabs 50mg (Flecainide acetate) ..... Take 1 tablet twice a day Orders: H olter Monitor 48 hr (CPT-81069) C omplete Echo (CPT-21787) Wellington Nataliia Electrophysiology [facility] Electrophysiology: H er updated medication list for this problem includes: Lisinopril 10 Mg Oral Tablet (Lisinopril) ..... One tab. daily Aspirin 81 Mg Oral Tablet (Aspirin) ..... One tab. daily Cardizem Cd 180 Mg Oral Capsule Extended Release 24 Hour (Diltiazem hcl coated beads) ..... One tab at bedtime Orders: 9 9215 HIGH Complex (CPT-57767) M obile Cardiac Tele (CPT-74073) [facility] Electrophysiology: B P today: 120/80 P rior [...] at bedtime Orders: 9 9215 HIGH Complex (CPT-99093) [facility] Electrophysiology: H er updated medication list for [...] tablet twice a day Orders: E KG (CPT-53641) 9 9215 HIGH Complex (CPT-04938) M obile Cardiac Tele (CPT-99559) [facility] Electrophysiology: H er updated medication list for this problem includes: Aspirin 81 Mg Oral Tablet (Aspirin) ..... One tab. daily Flecainide Acetate 50 Mg Oral Tablet (Flecainide acetate) ..... One tablet twice a day Orders: 9 9215 HIGH Complex (CPT-86365) M obalicia Cardiac Tele (CPT-73288) Ari Bhandari Electrophysiology Follow up Sam Pantoja [...] sinus rhythm Macario Kent MD Cardiology faxed 11/04/16:[id number] -VASc score is 1. Kody Stuart Cardiology faxed 11/04/16:[id number] -VASc score is 1. Kody Stuart Cardiology faxed 10/08 :Orders: F VC - 16459 (11088) F RC - 95397 (55168) D LCO - 04271 (18317) X -Ray, Chest, PA & Lateral (CPT-53662) Kody Stuart [facility] faxed 10/08 :Her updated medication list for this problem includes: Lisinopril 10 Mg Tabs (Lisinopril) ..... One tab. daily Aspirin 81 Mg Tabs (Aspirin) ..... One tab. daily Cardizem Cd 180 Mg [id number] (Diltiazem hcl coated beads) ..... One tab at bedtime Flecainide Acetate 50 Mg Tabs (Flecainide acetate) ..... One tablet twice a day Kody Stuart Cardiology faxed 10/08 :Her updated medication list for this problem includes: Lisinopril 10 Mg Tabs (Lisinopril) ..... One tab. daily Aspirin 81 Mg Tabs (Aspirin) ..... One tab. daily Cardizem Cd 180 Mg Cl00n-bil (Diltiazem hcl coated beads) ..... One tab at bedtime Flecainide Acetate 50 Mg Tabs (Flecainide acetate) ..... One tablet twice a day Kody Stuart EP faxed 09/20/15: H er updated medication list for this problem includes: Lisinopril 10 Mg Tabs (Lisinopril) ..... One tab. daily Aspirin 81 Mg Tabs (Aspirin) ..... One tab. daily Cardizem Cd 180 Mg [id number] (Diltiazem hcl coated beads) ..... One tab [...] One tab. daily Cardizem Cd 180 Mg [id number] (Diltiazem hcl coated beads) ..... One tab [...] tablet twice a day Orders: Dyana TREVIZO (CPT-91525) Macario Kent MD fu faxed 03/03/15 1545 [...] One tab. daily Cardizem Cd 180 Mg [id number] (Diltiazem hcl coated beads) ..... One tab [...] Chest, PA & L ateral DLCO - 79098 FRC - 00584 FVC - 42409 Complete Echo Holter Monitor 24 Hr Holter [...] Marcos s MD completed Schedule Followup ulius Jsoe lang MD completed EKG ulius Priti quinonez [...] EKG ulius Priti quinonez MD completed SNOMED-CT: [id number] Current Medications Documented ulius Donte MONREAL completed FVC - 68880 Macario quinonez MD completed FRC - 31033 ulius Priti quinonez MD completed DLCO - 44796 ulius Priti quinonez MD completed EKG ulius Priti quinonez MD completed SNOMED-CT: [id number] Current Medications Documented ulius Donte MONREAL completed Holter, 24 or 48 ulius Michael salvador MD completed Schedule Followup ulius Jose lang MD 1 year completed EKG ulius Priti quinonez MD completed SNOMED-CT: [id number] Current Medications Documented Saulius Donte MONREAL completed [...]
--- OUTSIDE RECORDS SUMMARY | 2025-02-08 14:19 | XMS_ITS | Encounter Summary ---
Author Organization [facility] Healthcare Address [facility] [place] [address] Care Team Providers Care Housing Inspectors Name Role Phone Fran Shepard MD Primary Care Provider [phone] Reason for Referral * Diagnostic Imaging (Routine) - Closed Specialty Diagnoses / Procedures Referred By Contac t Referred To Contact Diagnoses Pain of left lower extremity Procedures US Vein Duplex Lower Extremity Left Limited Fran Shepard MD [address] [address] Phone: tel: fax: [address] [address] Referral ID Status Reason Start Date Expiration Date Visits Re quested Visits Authorized [id number] Closed 07/22/2019 01/30/2021 1 1 Encounter Details Date Type Department Care Team (Late st Contact Info) Description 07/22/2019 Orders Only Internal Medicine Fran Shepard MD [address] [place] [address] Pain of left lower extremity (Primary Dx) Social History Tobacco Use Types Packs/Day Years Used Date Smoking Tobacco: Former Smokeless Tobacco: Never Alcohol Use Standard Drinks/Week Comments No 0 (1 standard drink = 0.6 oz pur e alcohol) Comments Unknown Sex and Gender Information Value Date Recorded Sex Assigned at Not on file Legal Sex Female 3:03 AM CONCILIATOR Gender Identity Female 09/18/2023 1:09 PM CONCILIATOR Sexual Orientation Not on file documented as [...] PM CDT Narrative 07/22/2019 3:47 PM CDT [facility] - Department of Vascular Surgery, Vascular Laboratory [address] [place] [address] Lower Extremity Venous Ultrasound Report Patient Name: NGOZI MCGHEE R : 1950 (68y 11m) Study Date: 07/22/2019 3:10:17 PM Gender: F Tech: ELVIRA Location: [facility] Ref.Provider: FRAN SHEPARD Quality: Adequate Order Provider: FRAN SHEPARD Procedures: Vascular Report: Venous Duplex imaging was performed in the left lower extremity. The common femoral, femoral, popliteal, posterior tibial, peroneal veins were evaluated for patency, spontaneity and phasicity with Doppler, compression and augmentation maneuvers. Great saphenous vein proximal at the junction was evaluated with compression maneuvers. Indications: Pain in left leg. Findings: Performing Bag Cutter: Ramona Pearson RVT. Left: Venous Doppler signals [...] performed. Electronically Signed By: Anil Sadler MD [facility] 2019-07-22 15:47:05 CDT CC: CC: Procedure Note Anil Sadler MD - 07/22/2019 [facility] - Department of Vascular Surgery,Vascular Laboratory [address] [place] [address] Lower Extremity Venous Ultrasound Report Patient Name: NGOZI MCGHEE R : 1950 (68y 11m) Study Date: 07/22/2019 3:10:17 PM Gender: F Tech: ELVIRA Location: [facility] Ref.Provider: FRAN SHEPARD Quality: Adequate Order Provider: FRAN SHEPARD Procedures: Vascular Report: Venous Duplex imaging was performed in the left lower extremity. Thecommon femoral, femoral, popliteal, posterior tibial, peroneal veins were evaluated forpatency, spontaneity and phasicity with Doppler, compression and augmentationmaneuvers. Great saphenous vein proximal at the junction was evaluated with compressionmaneuvers. Indications: Pain in left leg. Findings: Performing Bag Cutter: Ramona Pearson RVT. Left: Venous Doppler signals [...] performed. Electronically Signed By: Anil Sadler MD [facility] 2019-07-22 15:47:05 CDT CC: CC: Fran Shepard MD IM US PROCEDURES Final Resul t documented in this encounter Visit Diagnoses Diagnosis Pain of left lower extremity- Primary Pain of left lower extremity documented in this encounter Additional Health Concerns Infection Onset Date Last Indicated Resolved Time COVID: Suspected 09/12/2020 09/12/2020 09/13/2020 7:07 PM CONCILIATOR COVID19 09/12/2020 09/12/2020 09/26/2020 3:07 AM CONCILIATOR documented as of this encounter Care Teams Housing Inspectors Relationship Specialty Start Date End Date Fran Shepard MD [id number] [place] [address] PCP - General Internal Medicine 06/01/18 documented as of this encounter
--- OUTSIDE RECORDS SUMMARY | 2025-02-08 14:19 | XMS_ITS | Clinical Summary ---
Author Organization [facility] Address [facility] [place] [address] Care Team Providers Care Restaurant Crew Person Name Role Phone Scotty Shepard MD Primary Care Provider [phone] Allergies Active Allergy Reactions Criticality Noted Date [...] refills Assessment & Plan (11/27/2023 3:30 PM PHOTOGRAPHY EDITOR): Trial Elavil 10mg HS Assessment & Plan (05/28/2023 12:00 PM CDT): Using Xanax 0.25mg HS and PRN - continue (discussed use, safety, s/e and dependency risks) Counseling We discussed possible SSRI/SRNI use, declines at this time Assessment & Plan (10/16/2022 2:40 PM PHOTOGRAPHY EDITOR): Elevated BP most certainly related to elevated [...] 02/26/2024 Assessment & Plan (11/27/2023 3:28 PM PHOTOGRAPHY EDITOR): Mupirocin x 1 week Immunizations Immunization Administration [...] on file Legal Sex Female 3:03 AM PHOTOGRAPHY EDITOR Gender Identity Female 09/18/2023 1:09 PM PHOTOGRAPHY EDITOR Sexual Orientation Not on file Obstetrics History [...] 2025 07/22/2018, 08/15/2017, 10/10/2016, Additional history exists Procedures Procedure Name Priority Date/Time Associated Diagnosis Comments SCAN - LABS 02/08/2025 8:45 AM CDT from Last 3 Months Results * SCAN - LABS (02/08/2025 8:45 AM CDT) us Scotty Shepard MD Final Result from Last 3 Months Insurance [facility] MEDICARE BLUE ACC CHOICE OOS [employer]ocab ACCESS OOS MEDICARE Care Teams Restaurant Crew Person Relationship Specialty Start Date End Date Scotty Shepard MD [address] [facility] [address] [place] [address] PCP - General Internal Medicine 06/01/18
--- OUTSIDE RECORDS SUMMARY | 2025-02-08 14:19 | XMS_ITS | Continuity of Care Document ---
Author Organization [facility] Address [address] [facility] [address] [place] [address] Phone Care Team Providers Care Roof Designer Name Role Phone Dane Romero Unavailable Unavailable Procedures Procedure Date Office/outpatient Visit, Est Office/outpatient Visit, Est Eye Exam, New Patient Advance Directives Directive Yes / No Effective Date File Name No Information Encounters Encounter Description Practice Location Reason(s) For Visit Diagnoses Date Provider Providers Copied on Encounter Office/outpat ient Visit, [facility], [address] [place] [address] [address], [place], [place], [id number], [place] tel:[phone] [facility] No Information 0 4-201 0 Krishnasamy Dane. [address] [address], [place], [place], [facility], [place]. tel:[phone] Office/outpat ient Visit, [facility], [address] [place] [address] [address], [place], [place], [id number], [place] tel:[phone] [facility] No Information 5-201 0 Krishnasamy Dane. [address] [facility] [address], [place], [address], [place]. tel:[phone] [facility], [address] [place] [address] [address], [place], [place], [id number], [place] tel:[phone] [facility] No Information 0 1-200 8 Krishnasamy Dane. [address], [address], [place]. tel:[phone] Family History Family Member Type Diagnosis Age [...]
--- OUTSIDE RECORDS SUMMARY | 2025-02-08 14:19 | XMS_ITS | Referral Summary ---
Author Organization [facility] Address [place] [address] Care Team Providers Care Front End Developer Name Role Phone Scotty Shepard MD Primary Care Provider [phone] Allergies Active Allergy Reactions Criticality Noted Date [...] refills Assessment & Plan (11/27/2023 3:30 PM SECURITY SYSTEMS ADMINISTRATOR): Trial Elavil 10mg HS Assessment & Plan (05/28/2023 12:00 PM CDT): Using Xanax 0.25mg HS and PRN - continue (discussed use, safety, s/e and dependency risks) Counseling We discussed possible SSRI/SRNI use, declines at this time Assessment & Plan (10/16/2022 2:40 PM SECURITY SYSTEMS ADMINISTRATOR): Elevated BP most certainly related to elevated [...] 02/26/2024 Assessment & Plan (11/27/2023 3:28 PM SECURITY SYSTEMS ADMINISTRATOR): Mupirocin x 1 week Immunizations Immunization Administration [...] on file Legal Sex Female 3:03 AM SECURITY SYSTEMS ADMINISTRATOR Gender Identity Female 09/18/2023 1:09 PM SECURITY SYSTEMS ADMINISTRATOR Sexual Orientation Not on file Last Filed [...] Esophageal dysphagia COLONOSCOPY Encounter for screening colonoscopy Procedures Procedure Name Priority Date/Time Associated Diagnosis Comments SCAN - LABS 02/08/2025 8:45 AM CDT from Last 3 Months Results * SCAN - LABS (02/08/2025 8:45 AM CDT) Scotty Shepard MD Final Result from Last 3 Months Insurance [facility] MEDICARE BLUE ACC CHOICE OOS BLUE ACCESS OOS MEDICARE Care Teams Front End Developer Relationship Specialty Start Date End Date Scotty Shepard MD [address] [address] PCP - General Internal Medicine 06/01/18
[2025-02-08 14:30] VITALS: BP 159/84; PULSE 74; RESP 16; TEMP 36.6; O2SAT 100
--- NOTE | 2025-02-08 14:32 | ECG_ITS ---
Test Date: 2025-02-08 14:36:58 Measurements Intervals Young Harris Rate: 71 P: 30 MO: 161 QRS: -9 QRSD: 82 T: 40 QT: 389 QTc: 423 Interpretive Statements SINUS RHYTHM LOW QRS VOLTAGE IN PRECORDIAL LEADS [QRS DEFLECTION < 1.0 mV IN CHEST LEADS] VOLTAGE CRITERIA FOR LVH [MEETS CRITERIA IN ONE OF: R(aVL), S(V1), R(V5), R(V5/V6)+S(V1)] Compared to ECG 02/07/2025 22:53:58 NO SIGNIFICANT CHANGES Electronically Signed On 02-08-2025 15:27:47 CDT by Darwin Rosales M.D.
--- NOTE | 2025-02-08 15:04 | PC.NURSE ---
pt came to triage to report she felt better and is just going to f/u with her PCP. Pt also reports if something changes and she feels she needs to be seen she will come back to the ED. Left ED with , skin pwd and gait was steady, no distress noted
--- OUTSIDE RECORDS SUMMARY | 2025-02-08 15:30 | XMS_ITS | Clinical Summary ---
Author Organization [facility] Address [facility] [place] [address] Care Team Providers Care Furniture Duster Name Role Phone Scotty Shepard MD Primary Care Provider [phone] Allergies Active Allergy Reactions Criticality Noted Date [...] Comments Blood Pressure 146/89 09/23/2023 12:41 PM GUIDE DOG MOBILITY INSTRUCTOR Pulse 81 09/23/2023 12:25 PM GUIDE DOG MOBILITY INSTRUCTOR Temperature 36.8 C (98.2 F) 09/23/2023 12:25 PM GUIDE DOG MOBILITY INSTRUCTOR Respiratory Rate 20 09/23/2023 12:41 PM GUIDE DOG MOBILITY INSTRUCTOR Oxygen Saturation 94% 09/23/2023 12:41 PM GUIDE DOG MOBILITY INSTRUCTOR Inhaled Oxygen Concentration - - Weight 97.5 kg (215 lb) 09/18/2023 4:49 PM GUIDE DOG MOBILITY INSTRUCTOR Height 165.1 cm (5' 5 ) 09/18/2023 4:49 PM GUIDE DOG MOBILITY INSTRUCTOR Body Mass Index 35.78 09/18/2023 4:49 PM GUIDE DOG MOBILITY INSTRUCTOR Plan of Treatment Health Maintenance Due Date [...] patient's age to complete this topic Insurance [facility] Care Teams Furniture Duster Relationship Specialty Start Date End Date Scotty Shepard MD [address] [address] PCP - General INTERNAL MEDICINE 09/23/23
--- OUTSIDE RECORDS SUMMARY | 2025-02-08 15:30 | XMS_ITS | CONTINUITY OF CARE DOCUMENT ---
Author Name frank, frank Address Unknown Organization [facility] Address [address] [facility] [address] [place] [address] Phone [phone] Care Team Providers Care Salvager Helper Name Role Phone Donte MONREAL, Macario Unavailable FRAN DYE MD Unavailable FRAN DYE MD Unavailable [phone] PROBLEMS Condition Status Date Provider Notes [...] In-person encounter Office Visit Macario Kent MD [facility] - In-person encounter Office Visit Macario Kent MD [facility] - In-person encounter Office Visit Macario Kent MD [facility] - In-person encounter Office Visit Macario Kent MD [facility] - In-person encounter Office Visit Macario Kent MD [facility] Sinus drainage - In-person encounter Office Visit Macario Kent MD [facility] Carotid bruit, bilateral - In-person encounter Office Visit Macario Kent MD [facility] - In-person encounter Office Visit Macario Kent MD [facility] Office - In-person encounter Office Visit Macario Kent MD [facility] Coronavirus infection 09/2020Fatigue - In-person encounter Office Visit Macario Kent MD [facility] - In-person encounter Office Visit Macario Kent MD [facility] ArthritisHTN - In-person encounter Office Visit Macario Kent MD [facility] - In-person encounter Office Visit Macario Kent MD [facility] SVT S/P ABLATION 11/18Atrial fib paroxysmal - in NSR Holter trial flutter S/P ablation 10/18 - In-person encounter Office Visit Macario Kent MD [facility] Atrial fib paroxysmal - in NSR Holter trial flutter S/P ablation 10/18 - In-person encounter Office Visit Macario Kent MD [facility] Atrial fib paroxysmal - in NSR Holter 10/22 - In-person encounter Office Visit Macario Kent MD [facility] Atrial fib paroxysmal - in NSR Holter trial flutter S/P ablation 10/18 - In-person encounter Office Visit Macario Kent MD [facility] - In-person encounter Office Visit Macario Kent MD [facility] - In-person encounter Office Visit Macario Kent MD [facility] - In-person encounter Office Visit Macario Kent MD [facility] ATRIAL FIB PAROXYSMAL-05/18 EVENT MX- SR HR 44-96 - In-person encounter Office Visit Macario Kent MD [facility] - In-person encounter Office Visit Macario Kent MD [facility] - In-person encounter Office Visit Macario Kent MD [facility] - In-person encounter Office Visit Macario Kent MD [facility] SHORTNESS OF BREATH - In-person encounter Office Visit Cristhian Edmond MD [facility] SVT S/P ABLATION 11/18 - In-person encounter Office Visit Macario Kent MD [facility] SVT S/P ABLATION 11/18DIZZINESS - In-person encounter Office Visit Roz Bob MD [facility] CHEST PAIN, NON-CARDIACPALPITATI ONSOBESITY VITAL SIGNS [...] blood pressure, cuff size large La paolo [place] blood pressure, diastolic 76 mm[Hg] La paolo Evon blood pressure, systolic 139 mm[Hg] Norris diazda [place] oxygen saturation, oximetry 95 % Lucero [place] respiratory rate E&M 18 /min Ligia brito Evon pulse rate 67 /min Lucero [place] weight E&M 190 [lb_av] Lucero [place] height E&M 63 [in_i] Lucero [place] Body Mass Index (Ratio) 39.85 kg/m2 Taew on Renaldo blood pressure, cuff size large Ke rri Jorge Luisuenenfspringfield hospitaler blood pressure, diastolic 74 mm[Hg] Ke rri uenenfspringfield hospitaler blood pressure, systolic 142 mm[Hg] Debi ri [facility] oxygen saturation, oximetry 95 % Sharita Kangcarlos manueljeanethwilson [facility] respiratory rate E&M 16 /min Sharita pino pulse rate 64 /min Sharita April [facility] weight E&M 225 [lb_av] Sharita Rodrígueze [facility] height E&M 63 [in_i] Sharita Jorge Luisandraee [facility] Body Mass Index (Ratio) 37.37 kg/m2 Taew on Renaldo blood pressure, cuff size regular Kr isnorberto Erika blood pressure, diastolic 78 mm[Hg] Kr isty Erika blood pressure, systolic 150 mm[Hg] Kri stpanchito [place] oxygen saturation, oximetry 97 % Fadumo [place] pulse rate 90 /min Fadumo Erika respiratory rate E&M 20 /min Fadumo Erika weight E&M 211 [lb_av] Fadumo Erika height E&M 63 [in_i] Fadumo [place] height E&M 63 [in_i] [place] blood pressure, resting Yes Kill een [place] blood pressure, diastolic 80 mm[Hg] Amadou le [place] blood pressure, systolic 120 mm[Hg] Brian augustin [place] oxygen saturation, oximetry 98 % [place] respiratory rate E&M 16 /min Jen [place] pulse rate 77 /min Jen [place] height E&M 63 [in_i] Jen [place] Body Mass Index (Ratio) 39.32 kg/m2 Sam Pantoja blood pressure, cuff size large Ke rri Gruenenfspringfield hospitaler blood pressure, diastolic 90 mm[Hg] Ke rri Gruenenfelder blood pressure, systolic 130 mm[Hg] Debi ri Talnfspringfield hospitaler oxygen saturation, oximetry 96 % Sharita [...] pressure, systolic, left arm 155 mm [Hg] Goznalo Rosado blood pressure, diastolic, right arm 99 [...] 100-199 High platelet count 232 X10E3/UL LinkLog[employer] [phone]/06 /05 red blood cell distribution width 13.0 [...] LinkLogic 3.5-5.2 sodium, serum 142 mmol/L [employer] [phone]/06 /05 urea nitrogen/creatinine ratio, serum 16 LinkLogic [...] Rhodes RN Normal platelet count 247 10*3/mm3 [facility] [place] hematocrit, blood 47.3 % [facility] [place] alanine aminotransferase (SGPT), serum 45 1/L Denetrist [place] aspartate aminotransferase (SGOT), serum 26 1/L [facility] [place] creatinine, serum 1.13 mg/dL [facility] potassium, serum 4.0 mmol/L Den[facility] [place] sodium, serum 147 mmol/L [facility] [place] prothrombin time (patient) 25.1 s Sharita Howard international normalized ratio (INR) 2.5 Sharita Howard Normal coagulation managed by Simone Rhodes RN prothrombin time (patient) 36.8 s Anjum Brunomartin international normalized ratio (INR) 3.7 [facility] Normal prothrombin time (patient) 30.4 s Sharita Peraltaer international normalized ratio (INR) 3.0 Sharita Howard Normal platelet count 230 10*3/uL Jarredetrchristian Toure hematocrit, blood 45.7 % [facility] creatinine, serum 0.75 mg/dL [facility] [place] potassium, serum 4.9 mmol/L [facility] [place] sodium, serum 145 mmol/L [facility] [place] coagulation managed by Simone Rhodes [...] i drug use none Maxine Henningzulay r INFORMATION SYSTEMS SECURITY DEVELOPER alcohol use no Maxine Henningzulay r INFORMATION SYSTEMS SECURITY DEVELOPER passive cigarette sm paula exposure no Maxine Henningzulayr INFORMATION SYSTEMS SECURITY DEVELOPER smoking, year quit 1986 Maxine Henningzulayr INFORMATION SYSTEMS SECURITY DEVELOPER number of years as a smoker 5-9 Maxine Henningzulayr INFORMATION SYSTEMS SECURITY DEVELOPER smoking history, tot al pack/year 12 Maxine Henningzulayr INFORMATION SYSTEMS SECURITY DEVELOPER smoking history, tot al pack/day 1/2 ppd Maxine Henningzulayr INFORMATION SYSTEMS SECURITY DEVELOPER cigarette use yes Maxine Henningdaria er INFORMATION SYSTEMS SECURITY DEVELOPER smoking status Former smoker Maxine Henning dariaer INFORMATION SYSTEMS SECURITY DEVELOPER Exercise counseling Yes Maxine Henningezekiel INFORMATION SYSTEMS SECURITY DEVELOPER social history reviewed E&M revi ewed - [...] changes required Blanka Macario exercise type gym [employer] caffeine use, averag e drinks per day 0 /d [employer] passive cigarette sm paula exposure no [facility] smoking status Never smoker [employer] social history reviewed E&M revi ewed - no changes required Ari Bhandari exercise type gym [facility] alcohol use no [facility] caffeine use, averag e drinks per day 0 /d [facility] drug use none [facility] passive cigarette sm paula exposure no [facility] smoking status Never smoker [facility] number of grandchildren Macario Pantoja social [...] Payer name Policy type / Coverage type [place] red republican ID [facility] [id number] 1 ADVANCE DIRECTIVES Name Date DISCUSSED - NO DECISION MADE TREATMENT PLAN Date Name Performer [id number],W, Macario arzate MD [id number],W, Reviewed monitor results s evere side effects [...] Take 1 tablet daily Macario Kent MD [id number],W, Reviewed monitor results s evere side effects [...] Take 1 tablet daily Macario Kent MD [id number],C,A dvised her to monitor her BP at home for now, reduce sodium intake. She says her BP has been better controlled at home. BP today: 170/100 P rior BP: 158/92 (10/25/2022) Labs Reviewed: C reat: 0.89 (03/10/2021) C hol: 250 (03/10/2021) HDL: 65 (03/10/2021) Fidel medzai [id number],S, Fidel medza i [id number],C, N o CP Fidel Ahmedzai [id number],C, C linically compensated Fidel medzai [id number],C, i n Sinus rhythm She thinks she is experiencing AFIB episodes and palpitations. Will increase his Flecainide to 100 mg BID to better control of HR and these episodes. If she cannot tolerate increased dose of Flecainide, will consdier Tikosyn. W ill check holter at this time Fidel Ahmedzai [id number],C,Improved Fidel Ahmedzai [id number],C,No new episod es Fidel medzai [id number],C, C linically compensated Fidel Ahmedzai [id number],C,P robably due to her anxiety this morning, recommended she monitor it at home. BP today: 158/92 P rior BP: 166/101 (09/20/2022) Labs Reviewed: C reat: 0.89 (03/10/2021) C hol: 250 (03/10/2021) HDL: 65 (03/10/2021) Fidel 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 Take 1 tablet twice a day Macario Kent MD [id number],C, H er updated medication list for this problem includes: Lisinopril 10 Mg Tablet (Lisinopril) ..... Take 1 tablet daily Cartia Xt 180 Mg Capsule,extended Release 24hr (Diltiazem hcl) ..... Take 1 capsule by mouth every night Macario Kent MD [id number],W, H er updated medication list for this problem includes: Flecainide 50 Mg Tablet (Flecainide) ..... Take 1 tablet twice a day Lisinopril 10 Mg Tablet (Lisinopril) ..... Take 1 tablet daily Cartia Xt 180 Mg Capsule,extended Release 24hr (Diltiazem hcl) ..... Take 1 capsule by mouth every night Macario Kent MD [id number],W, Macario arzate MD [id number],C, O rders: P carline 21+ (CPT-37876) Macario Kent MD [id number],C, H er updated medication list for this problem includes: Flecainide 50 Mg Tablet (Flecainide) ..... Take 1 tablet twice a day Lisinopril 10 Mg Tablet (Lisinopril) ..... Take 1 tablet daily Cartia Xt 180 Mg Capsule,extended Release 24hr (Diltiazem hcl) ..... Take 1 capsule by mouth every night Orders: P carline 21+ (CPT-03461) S chedule Followup (*) Macario Kent MD [id number],C, H er updated medication list for this problem includes: Flecainide 50 Mg Tablet (Flecainide) ..... Take 1 tablet twice a day Lisinopril 10 Mg Tablet (Lisinopril) ..... Take 1 tablet daily Cartia Xt 180 Mg Capsule,extended Release 24hr (Diltiazem hcl) ..... Take 1 capsule by mouth every night Macario Kent MD [id number],C,W ill send in Levofloxacin and check CT head [facility] [id number],C,No CP [facility] [id number],C,No sxs curren tly [facility] [id number],C, B P today: 166/101 P rior BP: 139/76 (03/08/2022) Labs Reviewed: C reat: 0.89 (03/10/2021) C hol: 250 (03/10/2021) HDL: 65 (03/10/2021) [facility] [id number],C,weight loss a dvised [facility] [id number],C,Clinically co mpensated [facility] [id number],C,S he had a credit card clerk 04/2022 showing frequent Sinus Bradycardia, frequent Sinus [...] was Sinus Tachycardia @ 102bpm Fidel Núñezrodríguez [id number],S,in 6 months. Patrizia Carrion INFORMATION SYSTEMS SECURITY DEVELOPER [id number],S, H er updated medication list for this problem includes: Flecainide 50 Mg Tablet (Flecainide) ..... Take 1 tablet twice a day Lisinopril 10 Mg Tablet (Lisinopril) ..... Take 1 tablet once a day Cartia Xt 180 Mg Capsule,extended Release 24hr (Diltiazem hcl) ..... Take 1 capsule every night Patrizia Carrion INFORMATION SYSTEMS SECURITY DEVELOPER [id number],B,down 35 pound s Patrizia Carrion NP [id number],S, H er updated medication list for this problem includes: Lisinopril 10 Mg Tablet (Lisinopril) ..... Take 1 tablet once a day Cartia Xt 180 Mg Capsule,extended Release 24hr (Diltiazem hcl) ..... Take 1 capsule every night Patrizia Carrion NP [id number],B,i n NSR today. Her updated medication list for this problem includes: Flecainide 50 Mg Tablet (Flecainide) ..... Take 1 tablet twice a day Patrizia Carrion NP [id number],S, a ntibodies positive in 03/2021 E ncouraged her to get COVID vaccination as it has been 3 months. E xtensive discussion was done regarding COVID vaccine. Some of her hesitation comes from reported adverse reactions to vaccine in her family. After discussion she is giving it more consideration however still undecided. Blanka Macario [id number],B, d ietary sodium restriction and exercise advised. [...] capsule every night Orders: C omplete Echo (CPT-00885) A teo Duplex Ultrasound (CPT-28070) Blanka Macario [id number],C, s till has palpitations H er updated medication list for this problem includes: Lisinopril 10 Mg Tablet (Lisinopril) ..... Take 1 tablet once a day Cartia Xt 180 Mg Capsule,extended Release 24hr (Diltiazem hcl) ..... Take 1 capsule every night Flecainide 50 Mg Tablet (Flecainide) ..... Take 1 tablet twice a day Orders: E KG (CPT-79705) H olter Monitor 48 hr (CPT-27551) Blanka Macario [id number],W, p alpitations Orders: M onitor - Telemetry (Mobile Cardiac) (CPT-04514) Her updated medication list for this problem includes: Lisinopril Tabs 10mg (Lisinopril) ..... Take 1 tablet daily Aspirin 81 Mg Oral Tablet (Aspirin) ..... One tab. daily Diltiazem Hcl Er(cartia Xt)cp 180mg (Diltiazem hcl coated beads) ..... Take 1 capsule at bedtime Flecainide Acet Tabs 50mg (Flecainide acetate) ..... Take 1 tablet twice a day Blanka Macario [id number],C, a ntibodies positive in 03/2021 E ncouraged her to get COVID vaccination as it has been 3 months. Blanka Macario [id number],W, O rders: C OVID19 Rapid POC (CPT-57256) Blanka Macario Telehealth: H er updated medication list for this problem includes: Flecainide 50 Mg Tablet (Flecainide) ..... 1 tablet by mouth twice a day Lisinopril 10 Mg Tablet (Lisinopril) ..... Take 1 tablet daily Diltiazem Hcl 30 Mg Tablet (Diltiazem hcl) ..... 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 r emains [...] add magnesium oxide 400mg daily Maxine Dwyer INFORMATION SYSTEMS SECURITY DEVELOPER Electrophysiology:in SR. 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 Take 1 tablet twice a day Lisinopril 10 Mg Tablet (Lisinopril) ..... Take 1 tablet daily Cartia Xt 180 Mg Capsule,extended Release 24hr (Diltiazem hcl) ..... Take 1 capsule by mouth every night Orders: P carline 21+ (CPT-07491) S chedule Followup (*) Macario Kent MD [...] vised Fideltyra Sy Electrophysiology:Clinically com pensated [facility]idel [facility] Electrophysiology:Sh e had a credit card clerk 04/2022 showing frequent Sinus Bradycardia, frequent Sinus [...] Fidel Sy Cardiology:in 6 months. Patrizia tripp INFORMATION SYSTEMS SECURITY DEVELOPER Cardiology: H er updated medication list for [...] capsule every night Orders: C omplete Echo (CPT-88928) A teo Duplex Ultrasound (CPT-80999) Blanka Macario Electrophysiology: s tate has palpitations H er updated medication list for this problem includes: Lisinopril 10 Mg Tablet (Lisinopril) ..... Take 1 tablet once a day Cartia Xt 180 Mg Capsule,extended Release 24hr (Diltiazem hcl) ..... Take 1 capsule every night Flecainide 50 Mg Tablet (Flecainide) ..... Take 1 tablet twice a day Orders: E KG (CPT-89451) H olter Monitor 48 hr (CPT-39678) Blanka Macario Telehealth: p alpitations Orders: M onitor - Telemetry (Mobile Cardiac) (CPT-56630) Her updated medication list for this problem [...] Telehealth: O rders: C OVID19 Rapid POC (CPT-49929) Blanka Macario Electrophysiology 15 : O rders: C OMPREHENSIVE METABOLIC PANEL, W/EGFR (55832) C BC (H/H, RBC, INDICES, WBC, PLT) (1759) L IPID PANEL (7600) T SH, free T4, total T3 (7444) C ortisol (076582) Blanka Macario Electrophysiology 15 : d ietary [...] antibodies checked. Orders: C ovid Antibody Igg (48544) C ovid Antibody IgM (LC) (662923) C ovid Antibody IgA (LC) (868083) C OVID19 High Affinity Antibodies (LC) (681641) Blanka Macario Electrophysiology 15 : D enies [...] beads) ..... Take [address] [facility] Telehealth:Denies of any palpitations. H er [...] day Orders: H olter Monitor 48 hr (CPT-39987) C omplete Echo (CPT-78801) [facility] Telehealth:Denies of any palpitations. H er [...] day Orders: H olter Monitor 48 hr (CPT-95319) C omplete Echo (CPT-91252) [facility] Telehealth:Denies of any palpitations. H er updated medication list for this problem includes: Aspirin 81 Mg Oral Tablet (Aspirin) ..... One tab. daily Flecainide Acet Tabs 50mg (Flecainide acetate) ..... Take 1 tablet twice a day Orders: H olter Monitor 48 hr (CPT-44704) C omplete Echo (CPT-02642) Wellington Nataliia Electrophysiology [facility] Electrophysiology: H er updated medication list for this problem includes: Lisinopril 10 Mg Oral Tablet (Lisinopril) ..... One tab. daily Aspirin 81 Mg Oral Tablet (Aspirin) ..... One tab. daily Cardizem Cd 180 Mg Oral Capsule Extended Release 24 Hour (Diltiazem hcl coated beads) ..... One tab at bedtime Orders: 9 9215 HIGH Complex (CPT-65254) M obile Cardiac Tele (CPT-62230) [facility] Electrophysiology: B P today: 120/80 [...] at bedtime Orders: 9 9215 HIGH Complex (CPT-19157) [facility] Electrophysiology: H er updated medication [...] tablet twice a day Orders: E KG (CPT-44226) 9 9215 HIGH Complex (CPT-51578) M obile Cardiac Tele (CPT-79303) [facility] Electrophysiology: H er updated medication list for this problem includes: Aspirin 81 Mg Oral Tablet (Aspirin) ..... One tab. daily Flecainide Acetate 50 Mg Oral Tablet (Flecainide acetate) ..... One tablet twice a day Orders: 9 9215 HIGH Complex (CPT-76684) M obalicia Cardiac Tele (CPT-93707) Ari Bhandari Electrophysiology Follow up Sam Pantoja [...] sinus rhythm Macario Kent MD Cardiology faxed 11/04/16:[id number] -VASc score is 1. Kody Stuart Cardiology faxed 11/04/16:[id number] -VASc score is 1. Kody Stuart [facility] faxed 10/08 :Orders: F VC - 75377 (05584) F RC - 40602 (19565) D LCO - 44024 (33852) X -Ray, Chest, PA & Lateral (CPT-58892) Kody Stuart [facility] faxed 10/08 :Her updated medication list for this problem includes: Lisinopril 10 Mg Tabs (Lisinopril) ..... One tab. daily Aspirin 81 Mg Tabs (Aspirin) ..... One tab. daily Cardizem Cd 180 Mg [id number]-tst (Diltiazem hcl coated beads) ..... One tab at bedtime Flecainide Acetate 50 Mg Tabs (Flecainide acetate) ..... One tablet twice a day Kody Stuart [facility] faxed 10/08 :Her updated medication list for this problem includes: Lisinopril 10 Mg Tabs (Lisinopril) ..... One tab. daily Aspirin 81 Mg Tabs (Aspirin) ..... One tab. daily Cardizem Cd 180 Mg [id number] (Diltiazem hcl coated beads) ..... One tab at bedtime Flecainide Acetate 50 Mg Tabs (Flecainide acetate) ..... One tablet twice a day Kdoy Stuart EP faxed 09/20/15: H er updated medication list for this problem includes: Lisinopril 10 Mg Tabs (Lisinopril) ..... One tab. daily Aspirin 81 Mg Tabs (Aspirin) ..... One tab. daily Cardizem Cd 180 Mg [id number]-pct (Diltiazem hcl coated beads) ..... One tab [...] One tab. daily Cardizem Cd 180 Mg [id number] (Diltiazem hcl coated beads) ..... One tab [...] tablet twice a day Orders: Dyana TREVIZO (CPT-05128) Macario Kent MD fu faxed 03/03/15 1545 [...] One tab. daily Cardizem Cd 180 Mg [id number] (Diltiazem hcl coated beads) ..... One tab [...] Chest, PA & L ateral DLCO - 79046 FRC - 73416 FVC - 68899 Complete Echo Holter Monitor 24 Hr Holter [...] EKG ulius Priti quinonez MD completed SNOMED-CT: [id number] Current Medications Documented ulius Donte MONREAL completed FVC - 27332 Macario quinonez MD completed FRC - 14770 ulius Priti quinonez MD completed DLCO - 73331 ulius Priti quinonez MD completed EKG ulius Priti quinonez MD completed SNOMED-CT: [id number] Current Medications Documented ulius Donte MONREAL completed Holter, 24 or 48 ulius Michael salvador MD completed Schedule Followup ulius Jose lang MD 1 year completed EKG ulius Priti quinonez MD completed SNOMED-CT: [id number] Current Medications Documented Saulius Donte MONREAL completed [...]
--- OUTSIDE RECORDS SUMMARY | 2025-02-08 15:30 | XMS_ITS | Encounter Summary ---
Author Organization [facility] Healthcare Address [facility] [place] [address] Care Team Providers Care Fraud Analyst Name Role Phone Fran Shepard MD Primary Care Provider [phone] Reason for Referral * Diagnostic Imaging (Routine) - Closed Specialty Diagnoses / Procedures Referred By Contac t Referred To Contact Diagnoses Pain of left lower extremity Procedures US Vein Duplex Lower Extremity Left Limited Fran Shepard MD [address] [address] Phone: tel: fax: [address] [address] Referral ID Status Reason Start Date Expiration Date Visits Re quested Visits Authorized [id number] Closed 07/22/2019 01/30/2021 1 1 Encounter Details Date Type Department Care Team (Late st Contact Info) Description 07/22/2019 Orders Only Internal Medicine Fran Shepard MD [address] [place] [address] Pain of left lower extremity (Primary Dx) Social History Tobacco Use Types Packs/Day Years Used Date Smoking Tobacco: Former Smokeless Tobacco: Never Alcohol Use Standard Drinks/Week Comments No 0 (1 standard drink = 0.6 oz pur e alcohol) Comments Unknown Sex and Gender Information Value Date Recorded Sex Assigned at Not on file Legal Sex Female 3:03 AM SURVEILLANCE ANALYST Gender Identity Female 09/18/2023 1:09 PM SURVEILLANCE ANALYST Sexual Orientation Not on file documented as [...] PM CDT Narrative 07/22/2019 3:47 PM CDT [facility] - Department of Vascular Surgery, Vascular Laboratory [address] [place] [address] Lower Extremity Venous Ultrasound Report Patient Name: NGOZI MCGHEE R : 1950 (68y 11m) Study Date: 07/22/2019 3:10:17 PM Gender: F Tech: ELVIRA Location: [facility] Ref.Provider: FRAN SHEPARD Quality: Adequate Order Provider: FRAN SHEPARD Procedures: Vascular Report: Venous Duplex imaging was performed in the left lower extremity. The common femoral, femoral, popliteal, posterior tibial, peroneal veins were evaluated for patency, spontaneity and phasicity with Doppler, compression and augmentation maneuvers. Great saphenous vein proximal at the junction was evaluated with compression maneuvers. Indications: Pain in left leg. Findings: Performing Microphone Boom Operator: Ramona Pearson RVT. Left: Venous Doppler signals [...] performed. Electronically Signed By: Anil Sadler MD [facility] 2019-07-22 15:47:05 CDT CC: CC: Procedure Note Anil Sadler MD - 07/22/2019 [facility] - Department of Vascular Surgery,Vascular Laboratory [address] [place] [address] Lower Extremity Venous Ultrasound Report Patient Name: NGOZI MCGHEE R : 1950 (68y 11m) Study Date: 07/22/2019 3:10:17 PM Gender: F Tech: ELVIRA Location: [facility] Ref.Provider: FRAN SHEPARD Quality: Adequate Order Provider: FRAN SHEPARD Procedures: Vascular Report: Venous Duplex imaging was performed in the left lower extremity. Thecommon femoral, femoral, popliteal, posterior tibial, peroneal veins were evaluated forpatency, spontaneity and phasicity with Doppler, compression and augmentationmaneuvers. Great saphenous vein proximal at the junction was evaluated with compressionmaneuvers. Indications: Pain in left leg. Findings: Performing Microphone Boom Operator: Ramona Pearson RVT. Left: Venous Doppler signals [...] performed. Electronically Signed By: Anil Sadler MD [facility] 2019-07-22 15:47:05 CDT CC: CC: Frna Shepard MD IM US PROCEDURES Final Resul t documented in this encounter Visit Diagnoses Diagnosis Pain of left lower extremity- Primary Pain of left lower extremity documented in this encounter Additional Health Concerns Infection Onset Date Last Indicated Resolved Time COVID: Suspected 09/12/2020 09/12/2020 09/13/2020 7:07 PM SURVEILLANCE ANALYST COVID19 09/12/2020 09/12/2020 09/26/2020 3:07 AM SURVEILLANCE ANALYST documented as of this encounter Care Teams Fraud Analyst Relationship Specialty Start Date End Date Fran Shepard MD [address] [place] [address] PCP - General Internal Medicine 06/01/18 documented as of this encounter
--- OUTSIDE RECORDS SUMMARY | 2025-02-08 15:30 | XMS_ITS | Encounter Summary ---
Author Organization [facility] Address [address] [place] [address] Care Team Providers Care Block Trader Name Role Phone Scotty Shepard MD Primary Care Provider [phone] Reason for Visit * Reason Onset Date Comments FYI 02/08/2025 Encounter Details Date Type Department Care Team (Late st Contact Info) Description 02/08/2025 [facility] [address] [facility] [address] [place] [address] Scotty Shepard MD [address] [facility] [address] [place], [place] [id number] FYI Social History Tobacco Use Types Packs/Day Years Used Date Smoking Tobacco: Former Smokeless Tobacco: Never Comments:quit over 34 years ago Alcohol Use [...] on file Legal Sex Female 3:03 AM SAP MANAGER Gender Identity Female 09/18/2023 1:09 PM SAP MANAGER Sexual Orientation Not on file documented as of this encounter Miscellaneous Notes * Telephone Encounter - Toña Jeny Mila - 02/08/2025 2:25 PM CDT Pt's spouse calling said pt went back to [place] [facility] this afternoon for a BP above 200/100 to be re-evaluated. documented in this encounter Plan of Treatment Scheduled Procedures Name Priority Associated Diagnoses Date/Ti me COLONOSCOPY Screening for colon cancer COLONOSCOPY Colon cancer screening ESOPHAGOGASTRODUODENOSCOPY Esophageal spasm COLONOSCOPY Hx of colonic polyps ESOPHAGOGASTRODUODENOSCOPY Esophageal dysphagia COLONOSCOPY Encounter for screening colonoscopy documented as of this encounter Visit Diagnoses Not on filedocumented in this encounter Care Teams Block Trader Relationship Specialty Start Date End Date Scotty Shepard MD [address] [address] PCP - General Internal Medicine 06/01/18 documented as of this encounter
--- OUTSIDE RECORDS SUMMARY | 2025-02-08 15:30 | XMS_ITS | Clinical Summary ---
Author Organization [facility] Address [facility] [place] [address] Care Team Providers Care Hand Sole Sewer Name Role Phone Scotty Shepard MD Primary Care Provider [phone] Allergies Active Allergy Reactions Criticality Noted Date [...] refills Assessment & Plan (11/27/2023 3:30 PM CONCRETE PUDDLER): Trial Elavil 10mg HS Assessment & Plan (05/28/2023 12:00 PM CDT): Using Xanax 0.25mg HS and PRN - continue (discussed use, safety, s/e and dependency risks) Counseling We discussed possible SSRI/SRNI use, declines at this time Assessment & Plan (10/16/2022 2:40 PM CONCRETE PUDDLER): Elevated BP most certainly related to elevated [...] 02/26/2024 Assessment & Plan (11/27/2023 3:28 PM CONCRETE PUDDLER): Mupirocin x 1 week Encounters Date Type Department Care Team Description 02/08/2025 [facility] [address] [facility] [address] [place] [address] Scotty Shepard MD FYI from Last 3 Months Immunizations Immunization Administration Dates Next Due Influenza, [...] on file Legal Sex Female 3:03 AM CONCRETE PUDDLER Gender Identity Female 09/18/2023 1:09 PM CONCRETE PUDDLER Sexual Orientation Not on file Obstetrics History [...] Final Result from Last 3 Months Insurance [facility] MEDICARE BLUE ACC CHOICE OOS [employer] OOS MEDICARE Care Teams Hand Sole Sewer Relationship Specialty Start Date End Date Scotty Shepard MD [address] [facility] [address] [place] [address] PCP - General Internal Medicine 06/01/18
--- OUTSIDE RECORDS SUMMARY | 2025-02-08 15:30 | XMS_ITS | Continuity of Care Document ---
Author Organization [facility] Address [address] [facility] [address] [place] [address] Phone Care Team Providers Care Licensed Nursing Assistant Name Role Phone Dane Romero Unavailable Unavailable Procedures Procedure Date Office/outpatient Visit, Est Office/outpatient Visit, Est Eye Exam, New Patient Advance Directives Directive Yes / No Effective Date File Name No Information Encounters Encounter Description Practice Location Reason(s) For Visit Diagnoses Date Provider Providers Copied on Encounter Office/outpat ient Visit, [facility] [address] [place] [address] [address], [place], [place], [address], [place] tel:[phone] [facility] No Information 0 4-201 0 Krishnasamy Dane. [address] [address], [place], [place], [facility], [place]. tel:[phone] Office/outpat ient Visit, [facility], [address] [place] [address] [address], [place], [place], [id number], [place] tel:[phone] [facility] No Information 5-201 0 Krishnasamy Dane. [address] [facility] [address], [place], [address], [place]. tel:[phone] [facility], [address] [place] [address] [address], [place], [place], [id number], [place] tel:[phone] [facility] No Information 0 1-200 8 Krishnasamy Dane. [address], [address], [place]. tel:[phone] Family History Family Member Type Diagnosis Age At Onset No Information Payers Payer name Insurance type Covered libertarian ID Authoriza tion(s) No Information Social History [...]
--- OUTSIDE RECORDS SUMMARY | 2025-02-08 15:30 | XMS_ITS | Referral Summary ---
Author Organization [facility] Address [address] [place] [address] Care Team Providers Care Mine Analyst Name Role Phone Scotty Shepard MD Primary Care Provider [phone] Encounters Date Type Department Care Team Description 02/08/2025 [facility] [address] [facility] [address] [place] [address] Scotty Shepard MD FYI from Last 3 Months Allergies Active Allergy Reactions Criticality Noted Date [...] refills Assessment & Plan (11/27/2023 3:30 PM WAREHOUSE PULLER): Trial Elavil 10mg HS Assessment & Plan (05/28/2023 12:00 PM CDT): Using Xanax 0.25mg HS and PRN - continue (discussed use, safety, s/e and dependency risks) Counseling We discussed possible SSRI/SRNI use, declines at this time Assessment & Plan (10/16/2022 2:40 PM WAREHOUSE PULLER): Elevated BP most certainly related to elevated [...] 02/26/2024 Assessment & Plan (11/27/2023 3:28 PM WAREHOUSE PULLER): Mupirocin x 1 week Immunizations Immunization Administration [...] on file Legal Sex Female 3:03 AM WAREHOUSE PULLER Gender Identity Female 09/18/2023 1:09 PM WAREHOUSE PULLER Sexual Orientation Not on file Last Filed [...] Final Result from Last 3 Months Insurance [facility] ACCESS MEDICARE BLUE [employer] CHOICE OOS BLUE [employer] OOS MEDICARE Care Teams Mine Analyst Relationship Specialty Start Date End Date Scotty Shepard MD [address] [address] PCP - General Internal Medicine 06/01/18
== END 2025-02-08 15:42 | disposition left against medical advice (07) ==
PROVIDERS: Emergency Provider Preventive Medicine Aerospace Medicine; PCP Internal Medicine
DX: R03.0 Elevated blood-pressure reading, without diagnosis of hypertension (principal)
CPT/HCPCS: 93005; 99199

== ENCOUNTER 2025-02-09 09:49 | Outpatient (CLI) | payer BC, SELFPAY ==
--- NOTE | ~2025-02-09 | MM_ITS ---
EXAMINATION: MM screening [facility] BI w peyman HISTORY: Screening TECHNIQUE: Craniocaudal and mediolateral oblique 3-D tomosynthesis images were obtained and synthetic 2-D images were generated. CAD analysis was submitted and interpreted. COMPARISON: Comparison to multiple prior studies sequentially, with oldest reviewed study dated 06/17. BREAST PARENCHYMAL COMPOSITION: Not dense: There are scattered areas of fibroglandular density. FINDINGS: There is no evidence of suspicious mass, calcification, or architectural distortion to sugg est malignancy in either breast. There has been no suspicious interval change. IMPRESSION: 1. No mammographic evidence of malignancy. 2. Recommend routine screening mammography in one year. BI-RADS Category 1: Negative Reviewed, dictated and finalized at location A.
--- OUTSIDE RECORDS SUMMARY | 2025-02-09 10:32 | XMS_ITS | Clinical Summary ---
Author Organization [facility] Address [facility] [place] [address] Care Team Providers Care Medical Receptionist Biller Name Role Phone Scotty Shepard MD Primary Care Provider [phone] Allergies Active Allergy Reactions Criticality Noted Date [...] Comments Blood Pressure 146/89 09/23/2023 12:41 PM HAND SHAKER Pulse 81 09/23/2023 12:25 PM HAND SHAKER Temperature 36.8 C (98.2 F) 09/23/2023 12:25 PM HAND SHAKER Respiratory Rate 20 09/23/2023 12:41 PM HAND SHAKER Oxygen Saturation 94% 09/23/2023 12:41 PM HAND SHAKER Inhaled Oxygen Concentration - - Weight 97.5 kg (215 lb) 09/18/2023 4:49 PM HAND SHAKER Height 165.1 cm (5' 5 ) 09/18/2023 4:49 PM HAND SHAKER Body Mass Index 35.78 09/18/2023 4:49 PM HAND SHAKER Plan of Treatment Health Maintenance Due Date [...] patient's age to complete this topic Insurance [facility] Care Teams Medical Receptionist Biller Relationship Specialty Start Date End Date Scotty Shepard MD [address] [address] PCP - General INTERNAL MEDICINE 09/23/23
--- OUTSIDE RECORDS SUMMARY | 2025-02-09 10:33 | XMS_ITS | Encounter Summary ---
Author Organization [facility] Address [address] [place] [address] Care Team Providers Care Utilities Equipment Repairer Name Role Phone Scotty Shepard MD Primary Care Provider [phone] Reason for Visit * Reason Onset Date Comments FYI 02/08/2025 Encounter Details Date Type Department Care Team (Late st Contact Info) Description 02/08/2025 [facility] [address] [facility] [address] [place] [address] Scotty Shepard MD [address] [facility] [address] [place], [place] [id number] FYI Social History Tobacco Use Types Packs/Day [...] on file Legal Sex Female 3:03 AM BREAK UP WORKER Gender Identity Female 09/18/2023 1:09 PM BREAK UP WORKER Sexual Orientation Not on file documented as of this encounter Miscellaneous Notes * Telephone Encounter - Toña Jeny Mila - 02/08/2025 2:25 PM CDT Pt's spouse calling said pt went back to [place] ER this afternoon for a BP above [...] on filedocumented in this encounter Care Teams Utilities Equipment Repairer Relationship Specialty Start Date End Date Scotty Shepard MD [address] [address] PCP - General Internal Medicine 06/01/18 documented as of this encounter
--- OUTSIDE RECORDS SUMMARY | 2025-02-09 10:33 | XMS_ITS | Encounter Summary ---
Author Organization [facility] Healthcare Address [facility] [place] [address] Care Team Providers Care Financial Manager Name Role Phone Fran Shepard MD Primary Care Provider [phone] Reason for Referral * Diagnostic Imaging (Routine) - Closed Specialty Diagnoses / Procedures Referred By Contac t Referred To Contact Diagnoses Pain of left lower extremity Procedures US Vein Duplex Lower Extremity Left Limited Fran Shepard MD [address] [employer] [address] [address] Phone: tel: fax: [address] [address] Referral ID Status Reason Start Date Expiration Date Visits Re quested Visits Authorized [id number] Closed 07/22/2019 01/30/2021 1 1 Encounter Details Date Type Department Care Team (Late st Contact Info) Description 07/22/2019 Orders Only Internal Medicine Fran Shepard MD [address] [place] [address] Pain of left lower extremity (Primary Dx) Social History Tobacco Use Types Packs/Day Years Used Date Smoking Tobacco: Former Smokeless Tobacco: Never Alcohol Use Standard Drinks/Week Comments No 0 (1 standard drink = 0.6 oz pur e alcohol) Comments Unknown Sex and Gender Information Value Date Recorded Sex Assigned at Not on file Legal Sex Female 3:03 AM CORRECTIONAL CASEWORK SPECIALIST Gender Identity Female 09/18/2023 1:09 PM CORRECTIONAL CASEWORK SPECIALIST Sexual Orientation Not on file documented as [...] PM CDT Narrative 07/22/2019 3:47 PM CDT [facility] - Department of Vascular Surgery, Vascular Laboratory [address] [place] [address] Lower Extremity Venous Ultrasound Report Patient Name: NGOZI MCGHEE R : 1950 (68y 11m) Study Date: 07/22/2019 3:10:17 PM Gender: F Tech: ELVIRA Location: [facility] Ref.Provider: FRAN SHEPARD Quality: Adequate Order Provider: FRAN SHEPARD Procedures: Vascular Report: Venous Duplex imaging was performed in the left lower extremity. The common femoral, femoral, popliteal, posterior tibial, peroneal veins were evaluated for patency, spontaneity and phasicity with Doppler, compression and augmentation maneuvers. Great saphenous vein proximal at the junction was evaluated with compression maneuvers. Indications: Pain in left leg. Findings: Performing Telecom Field Technician: Ramona Pearson RVT. Left: Venous Doppler signals [...] performed. Electronically Signed By: Anil Sadler MD [facility] 2019-07-22 15:47:05 CDT CC: CC: Procedure Note Anil Sadler MD - 07/22/2019 [facility] - Department of Vascular Surgery,Vascular Laboratory [address] [place] [address] Lower Extremity Venous Ultrasound Report Patient Name: NGOZI MCGHEE R : 1950 (68y 11m) Study Date: 07/22/2019 3:10:17 PM Gender: F Tech: ELVIRA Location: [facility] Ref.Provider: FRAN SHEPARD Quality: Adequate Order Provider: FRAN SHEPARD Procedures: Vascular Report: Venous Duplex imaging was performed in the left lower extremity. Thecommon femoral, femoral, popliteal, posterior tibial, peroneal veins were evaluated forpatency, spontaneity and phasicity with Doppler, compression and augmentationmaneuvers. Great saphenous vein proximal at the junction was evaluated with compressionmaneuvers. Indications: Pain in left leg. Findings: Performing Telecom Field Technician: Ramona Pearson RVT. Left: Venous Doppler signals [...] performed. Electronically Signed By: Anil Sadler MD [facility] 2019-07-22 15:47:05 CDT CC: CC: Fran Shepard MD IM US PROCEDURES Final Resul t documented in this encounter Visit Diagnoses Diagnosis Pain of left lower extremity- Primary Pain of left lower extremity documented in this encounter Additional Health Concerns Infection Onset Date Last Indicated Resolved Time COVID: Suspected 09/12/2020 09/12/2020 09/13/2020 7:07 PM CORRECTIONAL CASEWORK SPECIALIST COVID19 09/12/2020 09/12/2020 09/26/2020 3:07 AM CORRECTIONAL CASEWORK SPECIALIST documented as of this encounter Care Teams Financial Manager Relationship Specialty Start Date End Date Fran Shepard MD [address] [place] [address] PCP - General Internal Medicine 06/01/18 documented as of this encounter
--- OUTSIDE RECORDS SUMMARY | 2025-02-09 10:33 | XMS_ITS | Referral Summary ---
Author Organization [facility] Address [address] [place] [address] Care Team Providers Care Environmental Change Analyst Name Role Phone Scotty Shepard MD Primary Care Provider [phone] Encounters Date Type Department Care Team Description 02/08/2025 [facility] [address] [facility] [address] [place] [address] Scotty Shepard MD FYI from [...] refills Assessment & Plan (11/27/2023 3:30 PM TAX AUDIT MANAGER): Trial Elavil 10mg HS Assessment & Plan (05/28/2023 12:00 PM CDT): Using Xanax 0.25mg HS and PRN - continue (discussed use, safety, s/e and dependency risks) Counseling We discussed possible SSRI/SRNI use, declines at this time Assessment & Plan (10/16/2022 2:40 PM TAX AUDIT MANAGER): Elevated BP most certainly related to elevated [...] 02/26/2024 Assessment & Plan (11/27/2023 3:28 PM TAX AUDIT MANAGER): Mupirocin x 1 week Immunizations Immunization Administration [...] on file Legal Sex Female 3:03 AM TAX AUDIT MANAGER Gender Identity Female 09/18/2023 1:09 PM TAX AUDIT MANAGER Sexual Orientation Not on file Last Filed [...] Final Result from Last 3 Months Insurance [facility] ACCESS MEDICARE BLUE [employer] CHOICE OOS BLUE [employer] OOS MEDICARE Care Teams Environmental Change Analyst Relationship Specialty Start Date End Date Scotty Shepard MD [address] [address] PCP - General Internal Medicine 06/01/18
--- OUTSIDE RECORDS SUMMARY | 2025-02-09 10:33 | XMS_ITS | CONTINUITY OF CARE DOCUMENT ---
Author Name frank, frank Address Unknown Organization [facility] Address [address] [place] [address] Phone [phone] Care Team Providers Care Docent Coordinator Name Role Phone Donte MONREAL, Macario Unavailable FRAN DYE MD Unavailable FRAN DYE MD Unavailable PROBLEMS Condition Status Date Provider Notes Hx of sick sinus syndrome (SSS) active Macario Kent MD Anxiety active Macario Kent MD (His tory of) CHEST PAIN, NON-CARDIAC active Roz cruz MD PALPITATIONS active ? Roz Bob MD OBESITY active ? Roz Bob MD DIZZINESS active Macario Kent MD SHORTNESS OF BREATH active Macario quinonez MD ATRIAL FIB PAROXYSMAL-05/18 EVENT MX- SR HR 44-96 completed - Macario Kent MD Arthritis active Jeremy Pantoja HTN active Jeremy Pantoja Coronavirus infection 09/2020 active Blanka Macario Fatigue active Blanka Macario Carotid bruit, bilateral active Blanka Macario Sinus drainage active Fidel Sy Atrial flutter S/P ablation 10/18 active Kody Stuart Atrial fib paroxysmal - in NSR Holter 10/22 active Kody Stuart SVT S/P ABLATION 11/18 active Kody moore ENCOUNTERS Date Type Provider Location Encounter Diag nosis - In-person encounter Office Visit Macario Kent MD [facility] - In-person encounter Office Visit Macario Kent MD [facility] - In-person encounter Office Visit Macario Kent MD [facility] - In-person encounter Office Visit Macario Kent MD [facility] - In-person encounter Office Visit Macario Kent MD [facility] Sinus drainage - In-person encounter Office Visit Macario Kent MD [facility] Carotid bruit, bilateral - In-person encounter Office Visit Macario Kent MD [facility] - In-person encounter Office Visit Macario Kent MD [facility] Office - In-person encounter Office Visit Macario Kent MD [facility] Coronavirus infection 09/2020Fatigue - In-person encounter Office Visit Macario Kent MD [facility] - In-person encounter Office Visit Macario Kent MD [facility] ArthritisHTN - In-person encounter Office Visit Macario Kent MD [facility] - In-person encounter Office Visit Macario Kent MD [facility] SVT S/P ABLATION 11/18Atrial fib paroxysmal - in NSR Holter trial flutter S/P ablation 10/18 - In-person encounter Office Visit Macario Kent MD [facility] Atrial fib paroxysmal - in NSR Holter trial flutter S/P ablation 10/18 - In-person encounter Office Visit Macario Kent MD [facility] Atrial fib paroxysmal - in NSR Holter 10/22 - In-person encounter Office Visit Macario Kent MD [facility] Atrial fib paroxysmal - in NSR Holter trial flutter S/P ablation 10/18 - In-person encounter Office Visit Macario Kent MD [facility] - In-person encounter Office Visit Macario Kent MD [facility] - In-person encounter Office Visit Macario Kent MD [facility] - In-person encounter Office Visit Macario Kent MD [facility] ATRIAL FIB PAROXYSMAL-05/18 EVENT MX- SR HR 44-96 - In-person encounter Office Visit Macario Kent MD [facility] - In-person encounter Office Visit Macario Kent MD [facility] - In-person encounter Office Visit Macario Kent MD [facility] - In-person encounter Office Visit Macario Kent MD [facility] SHORTNESS OF BREATH - In-person encounter Office Visit Cristhian Edmond MD [facility] SVT S/P ABLATION 11/18 - In-person encounter Office Visit Macario Kent MD [facility] SVT S/P ABLATION 11/18DIZZINESS - In-person encounter Office Visit Roz Bob MD [facility] CHEST PAIN, NON-CARDIACPALPITATI ONSOBESITY VITAL SIGNS [...] blood pressure, cuff size large La paolo [place] blood pressure, diastolic 76 mm[Hg] La paolo Evon blood pressure, systolic 139 mm[Hg] Norris diazda [place] oxygen saturation, oximetry 95 % Lucero [place] respiratory rate E&M 18 /min Ligia brito Evon pulse rate 67 /min Lucero [place] weight E&M 190 [lb_av] Lucero [place] height E&M 63 [in_i] Lucero [place] Body Mass Index (Ratio) 39.85 kg/m2 Taew on Renaldo blood pressure, cuff size large Ke rri Jorge Luisuenenfmount ascutney hospitaler blood pressure, diastolic 74 mm[Hg] Ke rri uenenfmount ascutney hospitaler blood pressure, systolic 142 mm[Hg] Debi ri [facility] oxygen saturation, oximetry 95 % Sharita Kangcarlos manueljeanethlaredo [facility] respiratory rate E&M 16 /min Sharita pino pulse rate 64 /min Sharita April [facility] [place] [place] weight E&M 225 [lb_av] Sharita Rodrígueze [facility] [place] [place] height E&M 63 [in_i] Sharita Jorge Luisandraee [facility] [place] Body Mass Index (Ratio) 37.37 kg/m2 Taew on Renaldo blood pressure, cuff size regular Kr isnorberto Erika blood pressure, diastolic 78 mm[Hg] Kr isty Erika blood pressure, systolic 150 mm[Hg] Kri stpanchito Jansen oxygen saturation, oximetry 97 % Fadumo Jansen pulse rate 90 /min Fadumo Erika respiratory rate E&M 20 /min Fadumo Erika weight E&M 211 [lb_av] Fadumo Erika height E&M 63 [in_i] Fadumo Jansen height E&M 63 [in_i] Wellington Fredote blood pressure, resting Yes Kill een Kent blood pressure, diastolic 80 mm[Hg] Amadou le Kent blood pressure, systolic 120 mm[Hg] Brian augustin Kent oxygen saturation, oximetry 98 % [place] Kent respiratory rate E&M 16 /min Jen Kent pulse rate 77 /min Jne Kent height E&M 63 [in_i] Jen Kent [...] 100-199 High platelet count 232 X10E3/UL [employer]Log[employer] [phone]/06 /05 red blood cell distribution width 13.0 [...] LinkLogic 3.5-5.2 sodium, serum 142 mmol/L [employer] [phone]/06 /05 urea nitrogen/creatinine ratio, serum 16 LinkLogic [...] Rhodes RN Normal platelet count 247 10*3/mm3 [facility] hematocrit, blood 47.3 % [facility] [place] alanine aminotransferase (SGPT), serum 45 1/L Denetrist [place] aspartate aminotransferase (SGOT), serum 26 1/L Denetrist [place] creatinine, serum 1.13 mg/dL [facility] [place] potassium, serum 4.0 mmol/L Denetrist [place] sodium, serum 147 mmol/L Denetrist [place] prothrombin time (patient) 25.1 s Sharita Howard international normalized ratio (INR) 2.5 Sharita Howard Normal coagulation managed by Simone Rhodes RN prothrombin time (patient) 36.8 s Anjum Brunomartin international normalized ratio (INR) 3.7 [facility] Normal prothrombin time (patient) 30.4 s Sharita Peraltaer international normalized ratio (INR) 3.0 Sharita Howard Normal platelet count 230 10*3/uL Jarredetrchristian Toure hematocrit, blood 45.7 % [facility] [place] creatinine, serum 0.75 mg/dL Denetrist [place] potassium, serum 4.9 mmol/L Denetrist [place] sodium, serum 145 mmol/L [facility] [place] coagulation managed by Simone Rhodes RN [...] i drug use none Maxine Henningzulay r [employer] SAL[employer] SUPERVISOR alcohol use no Maxine Henningzulay r INSIDE SALES SUPERVISOR passive cigarette sm paula exposure no Maxine Henningzulayr INSIDE SALES SUPERVISOR smoking, year quit 1986 Maxine Henningzulayr INSIDE SALES SUPERVISOR number of years as a smoker 5-9 Maxine Henningzulayr INS[employer] SALES SUPERVISOR smoking history, tot al pack/year 12 Maxine Henningzulayr INS[employer] SALES SUPERVISOR smoking history, tot al pack/day 1/2 ppd Maxine Henningzulayr [employer] SALES SUPERVISOR cigarette use yes Maxine Henningdaria er INSIDE SALES SUPERVISOR smoking status Former smoker Maxine Henning dariaer INSIDE SALES SUPERVISOR Exercise counseling Yes Maxine Henningezekiel INSIDE SALES SUPERVISOR social history reviewed E&M revi ewed - [...] changes required Blanka Macario exercise type gym Knowledgestreem caffeine use, averag e drinks per day 0 /d Knowledgestreem passive cigarette sm paula exposure no Knowledgestreem smoking status Never smoker Knowledgestreem social history reviewed E&M revi ewed - no changes required Ari Bhandari exercise type gym [facility] alcohol use no [facility] caffeine use, averag e drinks per day 0 /d [facility] drug use none [facility] passive cigarette sm paula exposure no [facility] smoking status Never smoker [facility] number of grandchildren Macario Pantoja social [...] Payer name Policy type / Coverage type Neville red alliance party ID [facility] [id number] 1 ADVANCE DIRECTIVES Name Date DISCUSSED - NO DECISION MADE TREATMENT PLAN Date Name Performer [id number],W, Macario arzate MD [id number],W, Reviewed monitor results s evere side effects [...] Take 1 tablet daily Macario Kent MD [id number],W, Reviewed monitor results s evere side effects [...] Take 1 tablet daily Macario Kent MD [id number],C,A dvised her to monitor her BP at home for now, reduce sodium intake. She says her BP has been better controlled at home. BP today: 170/100 P rior BP: 158/92 (10/25/2022) Labs Reviewed: C reat: 0.89 (03/10/2021) C hol: 250 (03/10/2021) HDL: 65 (03/10/2021) Fidel medzai [id number],S, Fidel medza i [id number],C, N o CP Fidel Ahmedzai [id number],C, C linically compensated Fidel medzai [id number],C, i n Sinus rhythm She thinks she is experiencing AFIB episodes and palpitations. Will increase his Flecainide to 100 mg BID to better control of HR and these episodes. If she cannot tolerate increased dose of Flecainide, will consdier Tikosyn. W ill check holter at this time Fidel Ahmedzai [id number],C,Improved Fidel Ahmedzai [id number],C,No new episod es Fidel medzai [id number],C, C linically compensated Fidel Ahmedzai [id number],C,P robably due to her anxiety this morning, recommended she monitor it at home. 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 Take 1 tablet twice a day Macario Kent MD [id number],C, H er updated medication list for this problem includes: Lisinopril 10 Mg Tablet (Lisinopril) ..... Take 1 tablet daily Cartia Xt 180 Mg Capsule,extended Release 24hr (Diltiazem hcl) ..... Take 1 capsule by mouth every night Macario Kent MD [id number],W, H er updated medication list for this problem includes: Flecainide 50 Mg Tablet (Flecainide) ..... Take 1 tablet twice a day Lisinopril 10 Mg Tablet (Lisinopril) ..... Take 1 tablet daily Cartia Xt 180 Mg Capsule,extended Release 24hr (Diltiazem hcl) ..... Take 1 capsule by mouth every night Macario Kent MD [id number],W, Macario arzate MD [id number],C, O rders: P carline 21+ (CPT-28120) Macario Kent MD [id number],C, H er updated medication list for this problem includes: Flecainide 50 Mg Tablet (Flecainide) ..... Take 1 tablet twice a day Lisinopril 10 Mg Tablet (Lisinopril) ..... Take 1 tablet daily Cartia Xt 180 Mg Capsule,extended Release 24hr (Diltiazem hcl) ..... Take 1 capsule by mouth every night Orders: P carline 21+ (CPT-51146) S chedule Followup (*) Macario Kent MD [id number],C, H er updated medication list for this problem includes: Flecainide 50 Mg Tablet (Flecainide) ..... Take 1 tablet twice a day Lisinopril 10 Mg Tablet (Lisinopril) ..... Take 1 tablet daily Cartia Xt 180 Mg Capsule,extended Release 24hr (Diltiazem hcl) ..... Take 1 capsule by mouth every night Macario Kent MD [id number],C,W ill send in Levofloxacin and check CT head [facility] [id number],C,No CP [facility] [id number],C,No sxs curren tly [facility] [id number],C, B P today: 166/101 P rior BP: 139/76 (03/08/2022) Labs Reviewed: C reat: 0.89 (03/10/2021) C hol: 250 (03/10/2021) HDL: 65 (03/10/2021) [facility] [id number],C,weight loss a dvised [facility] [id number],C,Clinically co mpensated [facility] [id number],C,S he had a site monitor 04/2022 showing frequent Sinus Bradycardia, frequent Sinus [...] was Sinus Tachycardia @ 102bpm Fidel Núñezrodríguez [id number],S,in 6 months. 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 Take 1 tablet twice a day Lisinopril 10 Mg Tablet (Lisinopril) ..... Take 1 tablet once a day Cartia Xt 180 Mg Capsule,extended Release 24hr (Diltiazem hcl) ..... Take 1 capsule every night Patrizia Carrion INS[employer] SALES SUPERVISOR [id number],B,down 35 pound s Patrizia Carrion NP [id number],S, H er updated medication list for this problem includes: Lisinopril 10 Mg Tablet (Lisinopril) ..... Take 1 tablet once a day Cartia Xt 180 Mg Capsule,extended Release 24hr (Diltiazem hcl) ..... Take 1 capsule every night Patrizia Carrion NP [id number],B,i n NSR today. Her updated medication list for this problem includes: Flecainide 50 Mg Tablet (Flecainide) ..... Take 1 tablet twice a day Patrizia Carrion NP [id number],S, a ntibodies positive in 03/2021 E ncouraged her to get COVID vaccination as it has been 3 months. E xtensive discussion was done regarding COVID vaccine. Some of her hesitation comes from reported adverse reactions to vaccine in her family. After discussion she is giving it more consideration however still undecided. Blanka Macario [id number],B, d ietary sodium restriction and exercise advised. [...] capsule every night Orders: C omplete Echo (CPT-63155) A teo Duplex Ultrasound (CPT-24562) Blanka Macario [id number],C, s till has palpitations H er updated medication list for this problem includes: Lisinopril 10 Mg Tablet (Lisinopril) ..... Take 1 tablet once a day Cartia Xt 180 Mg Capsule,extended Release 24hr (Diltiazem hcl) ..... Take 1 capsule every night Flecainide 50 Mg Tablet (Flecainide) ..... Take 1 tablet twice a day Orders: E KG (CPT-13050) H olter Monitor 48 hr (CPT-55349) Blanka Macario [id number],W, p alpitations Orders: M onitor - Telemetry (Mobile Cardiac) (CPT-57292) Her updated medication list for this problem includes: Lisinopril Tabs 10mg (Lisinopril) ..... Take 1 tablet daily Aspirin 81 Mg Oral Tablet (Aspirin) ..... One tab. daily Diltiazem Hcl Er(cartia Xt)cp 180mg (Diltiazem hcl coated beads) ..... Take 1 capsule at bedtime Flecainide Acet Tabs 50mg (Flecainide acetate) ..... Take 1 tablet twice a day Blanka Macario [id number],C, a ntibodies positive in 03/2021 E ncouraged her to get COVID vaccination as it has been 3 months. Blanka Macario [id number],W, O rders: C OVID19 Rapid POC (CPT-53350) Blanka Macario Telehealth: H er updated medication list for this problem includes: Flecainide 50 Mg Tablet (Flecainide) ..... 1 tablet by mouth twice a day Lisinopril 10 Mg Tablet (Lisinopril) ..... Take 1 tablet daily Diltiazem Hcl 30 Mg Tablet (Diltiazem hcl) ..... 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 r emains [...] add magnesium oxide 400mg daily Maxine Dwyer INSIDE SALES SUPERVISOR Electrophysiology:in SR. Her updated medication list for this problem includes: Diltiazem Hcl 30 Mg Tablet (Diltiazem hcl) ..... Take 1 tablet by mouth twice a day Lisinopril 10 Mg Tablet (Lisinopril) ..... 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 Take 1 tablet twice a day Lisinopril 10 Mg Tablet (Lisinopril) ..... Take 1 tablet daily Cartia Xt 180 Mg Capsule,extended Release 24hr (Diltiazem hcl) ..... Take 1 capsule by mouth every night Orders: P carline 21+ (CPT-11618) S chedule Followup (*) Macario Kent MD [...] pensated Fidel Sy Electrophysiology:Sh e had a site monitor 04/2022 showing frequent Sinus Bradycardia, frequent Sinus [...] @ 102bpm Fidel Sy Cardiology:in 6 months. Patirzia tripp NP Cardiology: H er updated medication [...] capsule every night Orders: C omplete Echo (CPT-90597) A teo Duplex Ultrasound (CPT-56088) Blanka Macario Electrophysiology: s tate has palpitations H er updated medication list for this problem includes: Lisinopril 10 Mg Tablet (Lisinopril) ..... Take 1 tablet once a day Cartia Xt 180 Mg Capsule,extended Release 24hr (Diltiazem hcl) ..... Take 1 capsule every night Flecainide 50 Mg Tablet (Flecainide) ..... Take 1 tablet twice a day Orders: E KG (CPT-17356) H olter Monitor 48 hr (CPT-80996) Blanka Macario Telehealth: p alpitations Orders: M onitor - Telemetry (Mobile Cardiac) (CPT-82198) Her updated medication list for this problem [...] Telehealth: O rders: C OVID19 Rapid POC (CPT-20200) Blanka Macario Electrophysiology 15 : O rders: C OMPREHENSIVE METABOLIC PANEL, W/EGFR (81087) C BC (H/H, RBC, INDICES, WBC, PLT) (1759) L IPID PANEL (7600) T SH, free T4, total T3 (7444) C ortisol (553302) Blanka Macario Electrophysiology 15 : d ietary [...] antibodies checked. Orders: C ovid Antibody Igg (46435) C ovid Antibody IgM (LC) (767350) C ovid Antibody IgA (LC) (479937) C OVID19 High Affinity Antibodies (LC) (816744) Blanka Macario Electrophysiology 15 : D enies [...] beads) ..... Take 1 capsule at bedtime [facility] Telehealth:Denies of any palpitations. H er [...] day Orders: H olter Monitor 48 hr (CPT-75788) C omplete Echo (CPT-13642) [facility] Telehealth:Denies of any palpitations. H er [...] day Orders: H olter Monitor 48 hr (CPT-51097) C omplete Echo (CPT-60939) [facility] Telehealth:Denies of any palpitations. H er updated medication list for this problem includes: Aspirin 81 Mg Oral Tablet (Aspirin) ..... One tab. daily Flecainide Acet Tabs 50mg (Flecainide acetate) ..... Take 1 tablet twice a day Orders: H olter Monitor 48 hr (CPT-97197) C omplete Echo (CPT-92482) Wellington Nataliia Electrophysiology [facility] Electrophysiology: H er updated medication list for this problem includes: Lisinopril 10 Mg Oral Tablet (Lisinopril) ..... One tab. daily Aspirin 81 Mg Oral Tablet (Aspirin) ..... One tab. daily Cardizem Cd 180 Mg Oral Capsule Extended Release 24 Hour (Diltiazem hcl coated beads) ..... One tab at bedtime Orders: 9 9215 HIGH Complex (CPT-49171) M obile Cardiac Tele (CPT-33759) [facility] Electrophysiology: B P today: 120/80 P [...] at bedtime Orders: 9 9215 HIGH Complex (CPT-79756) [facility] Electrophysiology: H er updated medication list [...] tablet twice a day Orders: E KG (CPT-38570) 9 9215 HIGH Complex (CPT-47203) M obile Cardiac Tele (CPT-84905) [facility] Electrophysiology: H er updated medication list for this problem includes: Aspirin 81 Mg Oral Tablet (Aspirin) ..... One tab. daily Flecainide Acetate 50 Mg Oral Tablet (Flecainide acetate) ..... One tablet twice a day Orders: 9 9215 HIGH Complex (CPT-11715) M obalicia Cardiac Tele (CPT-41644) Ari Bhandari Electrophysiology Follow up Sam Pantoja [...] sinus rhythm Macario Kent MD Cardiology faxed 11/04/16:[id number] -VASc score is 1. Kody Stuart Cardiology faxed 11/04/16:[id number] -VASc score is 1. Kody Stuart Cardiology faxed 10/08 :Orders: F VC - 32375 (66210) F RC - 08966 (09739) D LCO - 67038 (66525) X -Ray, Chest, PA & Lateral (CPT-28371) Kody Stuart Cardiology faxed 10/08 :Her updated medication list for this problem includes: Lisinopril 10 Mg Tabs (Lisinopril) ..... One tab. daily Aspirin 81 Mg Tabs (Aspirin) ..... One tab. daily Cardizem Cd 180 Mg [id number] (Diltiazem hcl coated beads) ..... One tab at bedtime Flecainide Acetate 50 Mg Tabs (Flecainide acetate) ..... One tablet twice a day Kody Stuart Cardiology faxed 10/08 :Her updated medication list for this problem includes: Lisinopril 10 Mg Tabs (Lisinopril) ..... One tab. daily Aspirin 81 Mg Tabs (Aspirin) ..... One tab. daily Cardizem Cd 180 Mg [id number] (Diltiazem hcl coated beads) ..... One tab at bedtime Flecainide Acetate 50 Mg Tabs (Flecainide acetate) ..... One tablet twice a day Kody Stuart EP faxed 09/20/15: H er updated medication list for this problem includes: Lisinopril 10 Mg Tabs (Lisinopril) ..... One tab. daily Aspirin 81 Mg Tabs (Aspirin) ..... One tab. daily Cardizem Cd 180 Mg [id number] (Diltiazem hcl coated beads) ..... One tab [...] One tab. daily Cardizem Cd 180 Mg [id number]-wwp (Diltiazem hcl coated beads) ..... One tab [...] tablet twice a day Orders: Dyana KG (CPT-80532) Mcaario Kent MD fu faxed 03/03/15 1545 Macario [...] One tab. daily Cardizem Cd 180 Mg Oh27z-cip (Diltiazem hcl coated beads) ..... One tab [...] Chest, PA & L ateral DLCO - 73830 FRC - 41700 FVC - 67284 Complete Echo Holter Monitor 24 Hr Holter [...] EKG ulius Priti quinonez MD completed SNOMED-CT: [id number] Current Medications Documented Saulius Donte MONREAL completed FVC - 93614 Macario quinonez MD completed FRC - 87252 ulius Priti quinonez MD completed DLCO - 15179 ulius Priti quinonez MD completed EKG ulius Priti quinonez MD completed SNOMED-CT: [id number] Current Medications Documented ulius Donte MONREAL completed Holter, 24 or 48 ulius Michael salvador MD completed Schedule Followup ulius Jose lang MD 1 year completed EKG ulius Priti quinonez MD completed SNOMED-CT: [id number] Current Medications Documented Saulius Kalmani MONREAL completed [...]
--- OUTSIDE RECORDS SUMMARY | 2025-02-09 10:33 | XMS_ITS | Clinical Summary ---
Author Organization [facility] Address [address] [place] [address] Care Team Providers Care Broach Grinder Name Role Phone Scotty Shepard MD Primary Care Provider [phone] Allergies Active Allergy Reactions Criticality Noted Date [...] refills Assessment & Plan (11/27/2023 3:30 PM LAMINATE FLOOR INSTALLER): Trial Elavil 10mg HS Assessment & Plan (05/28/2023 12:00 PM CDT): Using Xanax 0.25mg HS and PRN - continue (discussed use, safety, s/e and dependency risks) Counseling We discussed possible SSRI/SRNI use, declines at this time Assessment & Plan (10/16/2022 2:40 PM LAMINATE FLOOR INSTALLER): Elevated BP most certainly related to elevated [...] 02/26/2024 Assessment & Plan (11/27/2023 3:28 PM LAMINATE FLOOR INSTALLER): Mupirocin x 1 week Encounters Date Type Department Care Team Description 02/08/2025 [facility] [address] [place] [address] Scotty Shepard MD FYI from [...] on file Legal Sex Female 3:03 AM LAMINATE FLOOR INSTALLER Gender Identity Female 09/18/2023 1:09 PM LAMINATE FLOOR INSTALLER Sexual Orientation Not on file Obstetrics History [...] Final Result from Last 3 Months Insurance [facility] MEDICARE BLUE ACC CHOICE OOS [employer] OOS MEDICARE Care Teams Broach Grinder Relationship Specialty Start Date End Date Scotty Shepard MD [address] [place] [address] PCP - General Internal Medicine 06/01/18
--- OUTSIDE RECORDS SUMMARY | 2025-02-09 10:33 | XMS_ITS | Continuity of Care Document ---
Author Organization [facility] Address [address] [place] [address] Phone Care Team Providers Care Pharmaceutical Botanist Name Role Phone Dane Romero Unavailable Unavailable Procedures Procedure Date Office/outpatient Visit, Est Office/outpatient Visit, Est Eye Exam, New Patient Advance Directives Directive Yes / No Effective Date File Name No Information Encounters Encounter Description Practice Location Reason(s) For Visit Diagnoses Date Provider Providers Copied on Encounter Office/outpat ient Visit, [facility] [place], [address] [place] [address] [address], [place], [place], [id number], [place] tel:[phone] [facility] No Information 0 4-201 0 Krishnasamy Dane. [address] [address], [place], [place], [facility], [place]. tel:[phone] Office/outpat ient Visit, [facility] [place], [address] [place] [address] [address], [place], [place], [id number], [place] tel:[phone] [facility] No Information 5-201 0 Krishnasamy Dane. [address] [facility] [address], [place], [address], [place]. tel:[phone] [facility], [address] [place] [address] [address], [place], [place], [id number], [place] tel:[phone] [facility] No Information 0 1-200 8 Krishnasamy Dane. [address], [address], [place]. tel:[phone] Family History Family Member Type Diagnosis Age At Onset No Information Payers Payer name Insurance type Covered alliance party ID Authoriza tion(s) No Information Social [...]
== END 2025-02-09 09:50 | disposition home or self-care (01) ==
LOC: ANHIMG 09:51
PROVIDERS: PCP Internal Medicine; Visit Provider Obstetrics & Gynecology
DX: Z12.31 Encounter for screening mammogram for malignant neoplasm of breast (principal)
CPT/HCPCS: 77063; 77067

== ENCOUNTER 2025-06-28 20:45 | Emergency (ER) | payer BC, SELFPAY ==
--- OUTSIDE RECORDS SUMMARY | 2009-12-07 04:15 | XMS_ITS | Continuity of Care Document ---
Author Organization [facility] Address [address] [facility] [address] [place] [address] Phone Care Team Providers Care Elevator Tender Name Role Phone Dane Romero Unavailable Unavailable Procedures Procedure Date Office/outpatient Visit, Est Office/outpatient Visit, Est Eye Exam, New Patient Advance Directives Directive Yes / No Effective Date File Name No Information Encounters Encounter Description Practice Location Reason(s) For Visit Diagnoses Date Provider Providers Copied on Encounter Office/outpat ient Visit, [facility] [place], [address] [place] [address] [address], [place], [place], [id number], [place] tel:[phone] [facility] No Information 0 4-201 0 Krishnasamy Dane. [address] [address], [place], [place], [facility], [place]. tel:[phone] Office/outpat ient Visit, [facility] [place], [address] [place] [address] [address], [place], [place], [id number], [place] tel:[phone] [facility] No Information 5-201 0 Krishnasamy Dane. [address] [facility] [address], [place], [address], [place]. tel:[phone] [facility], [address] [place] [address] [address], [place], [place], [id number], [place] tel:[phone] [facility] No Information 0 1-200 8 Krishnasamy Dane. [address], [address], [place]. tel:[phone] Family History Family Member Type Diagnosis Age At Onset No Information Payers Payer name Insurance type Covered green party ID Authoriza tion(s) No Information Social History Type Description Quantity Date Captured Comments Sex Female Smoking Status No Information Chief Complaint And Reason For Visit No Information Reason For Referral Reason For Referral No Information History Of Present Illness Encounter Date Complaint History Of Prese nt Illness No Information Functional Status Date Functional Assessmen t No Information Instructions Date Instruction Additional Infor mation No Information Assessments Type Assessment Date No Information Patient Care Teams Name Effective Dates (start - stop) Status Members No Information
--- OUTSIDE RECORDS SUMMARY | 2009-12-07 04:15 | XMS_ITS | Continuity of Care Document ---
Author Organization [facility] Address [address] [facility] [address] [place] [address] Phone Care Team Providers Care School Psychologist Name Role Phone Dane Romero Unavailable Unavailable Procedures Procedure Date Office/outpatient Visit, Est Office/outpatient Visit, Est Eye Exam, New Patient Advance Directives Directive Yes / No Effective Date File Name No Information Encounters Encounter Description Practice Location Reason(s) For Visit Diagnoses Date Provider Providers Copied on Encounter Office/outpat ient Visit, [facility] [place], [address] [place] [address] [address], [place], [place], [id number], [place] tel:[phone] [facility] No Information 0 4-201 0 Krishnasamy Dane. [address] [address], [place], [place], [facility], [place]. tel:[phone] Office/outpat ient Visit, [facility] [place], [address] [place] [address] [address], [place], [place], [id number], [place] tel:[phone] [facility] No Information 5-201 0 Krishnasamy Dane. [address] [facility] [address], [place], [address], [place]. tel:[phone] [facility], [address] [place] [address] [address], [place], [place], [id number], [place] tel:[phone] [facility] No Information 0 1-200 8 Krishnasamy Dane. [address], [address], [place]. tel:[phone] Family History Family Member Type Diagnosis Age At Onset No Information Payers Payer name Insurance type Covered republican ID Authoriza tion(s) No Information Social History [...]
--- OUTSIDE RECORDS SUMMARY | 2025-06-28 20:47 | XMS_ITS | Encounter Summary ---
Author Organization [facility] Address [address] [place] [address] Care Team Providers Care Tower Cleaner Name Role Phone Scotty Shepard MD Primary Care Provider [phone] Reason for Visit * Reason Onset Date Comments surgical History and physical 06/02/2025 Encounter Details Date Type Department Care Team (Late st Contact Info) Description 06/02/2025 Telephone [facility] [address] [address] Scotty Shepard MD [address] [place] [address] [address] [place] [address] surgical History and physical Social History Tobacco Use Types Packs/Day Years [...] staff should administer the PHQ-9) 0 09/23/2023 Comments No Sex and Gender Information Value Date Recorded Sex Assigned at Not on file Legal Sex Female 3:03 AM FEEDER OPERATOR AUTOMATIC Gender Identity Female 09/18/2023 1:09 PM FEEDER OPERATOR AUTOMATIC Sexual Orientation Not on file documented as of this encounter Miscellaneous Notes * Telephone Encounter - Vi Freed CMA - 06/27/2025 3:26 PM CDT Already scheduled * Telephone Encounter - Vi Freed CMA - 06/02/2025 3:[address] Mendez office states pt has to have history physical Surgery is July 19 foot surgery She has to be seen with in 30 days of her surgery per Hospitalrequirements CONCRETE FLOAT MAKER can see patient P: [phone] F: [phone] documented in this encounter Plan of Treatment Scheduled Procedures Name Priority Associated Diagnoses Date/Ti me COLONOSCOPY Screening for colon cancer COLONOSCOPY Colon cancer screening ESOPHAGOGASTRODUODENOSCOPY Esophageal spasm COLONOSCOPY Hx of colonic polyps ESOPHAGOGASTRODUODENOSCOPY Esophageal dysphagia COLONOSCOPY Encounter for screening colonoscopy documented as of this encounter Visit Diagnoses Not on filedocumented in this encounter Care Teams Tower Cleaner Relationship Specialty Start Date End Date Scotty Shepard MD PCP - General Internal Medicine 06/01/18 documented as of this encounter
--- OUTSIDE RECORDS SUMMARY | 2025-06-28 20:47 | XMS_ITS | Encounter Summary ---
Author Organization [facility] Address [address] [place] [address] Care Team Providers Care Ship Boat Or Barge Mate Name Role Phone Fran Shepard MD Primary Care Provider [phone] Reason for Referral * Diagnostic Imaging (Routine) - Closed Specialty Diagnoses / Procedures Referred By Contac t Referred To Contact Diagnoses Pain of left lower extremity Procedures US Vein Duplex Lower Extremity Left Limited Fran Shepard MD Phone: tel: fax: [address] [address] Referral ID Status Reason Start Date Expiration Date Visits Re quested Visits Authorized [id number] Closed 07/22/2019 01/30/2021 1 1 Encounter Details Date Type Department Care Team (Late st Contact Info) Description 07/22/2019 Orders Only Internal Medicine Fran Shepard MD [address] [id number] Pain of left lower extremity (Primary Dx) Social History Tobacco Use Types Packs/Day Years Used Date Smoking Tobacco: Former Smokeless Tobacco: Never Alcohol Use Standard Drinks/Week Comments No 0 (1 standard drink = 0.6 oz pur e alcohol) Comments Unknown Sex and Gender Information Value Date Recorded Sex Assigned at Not on file Legal Sex Female 3:03 AM AUTOMATION ARCHITECT Gender Identity Female 09/18/2023 1:09 PM AUTOMATION ARCHITECT Sexual Orientation Not on file documented as of this encounter Progress Notes * Nanda Alexander - 07/22/2019 2:38 PM CDT us documented [...] PM CDT Narrative 07/22/2019 3:47 PM CDT [facility] - Department of Vascular Surgery, Vascular Laboratory [address] [place] [address] Lower Extremity Venous Ultrasound Report Patient Name: NGOZI MCGHEE R : 1950 (68y 11m) Study Date: 07/22/2019 3:10:17 PM Gender: F Tech: ELVIRA Location: [facility] Ref.Provider: FRAN SHEPARD Quality: Adequate Order Provider: FRAN SHEPARD Procedures: Vascular Report: Venous Duplex imaging was performed in the left lower extremity. The common femoral, femoral, popliteal, posterior tibial, peroneal veins were evaluated for patency, spontaneity and phasicity with Doppler, compression and augmentation maneuvers. Great saphenous vein proximal at the junction was evaluated with compression maneuvers. Indications: Pain in left leg. Findings: Performing Die Hardener: Ramona Pearson RVT. Left: Venous Doppler signals [...] performed. Electronically Signed By: Anil Sadler MD [facility] 2019-07-22 15:47:05 CDT CC: CC: Procedure Note Anil Sadler MD - 07/22/2019 [facility] - Department of Vascular Surgery,Vascular Laboratory [address] [place] [address] Lower Extremity Venous Ultrasound Report Patient Name: NGOZI MCGHEE R : 1950 (68y 11m) Study Date: 07/22/2019 3:10:17 PM Gender: F Tech: ELVIRA Location: [facility] Ref.Provider: FRAN SHEPARD Quality: Adequate Order Provider: FRAN SHEPARD Procedures: Vascular Report: Venous Duplex imaging was performed in the left lower extremity. Thecommon femoral, femoral, popliteal, posterior tibial, peroneal veins were evaluated forpatency, spontaneity and phasicity with Doppler, compression and augmentationmaneuvers. Great saphenous vein proximal at the junction was evaluated with compressionmaneuvers. Indications: Pain in left leg. Findings: Performing Die Hardener: Ramona Pearson RVT. Left: Venous Doppler signals [...] performed. Electronically Signed By: Anil Sadler MD [facility] 2019-07-22 15:47:05 CDT CC: CC: us Fran Shepard MD IM US PROCEDURES Final Resul t documented in this encounter Visit Diagnoses Diagnosis Pain of left lower extremity- Primary Pain of left lower extremity documented in this encounter Additional Health Concerns Infection Onset Date Last Indicated Resolved Time COVID: Suspected 09/12/2020 09/12/2020 09/13/2020 7:07 PM AUTOMATION ARCHITECT COVID19 09/12/2020 09/12/2020 09/26/2020 3:07 AM AUTOMATION ARCHITECT documented as of this encounter Care Teams Ship Boat Or Barge Mate Relationship Specialty Start Date End Date Fran Shepard MD PCP - General Internal Medicine 06/01/18 documented as of this encounter
--- OUTSIDE RECORDS SUMMARY | 2025-06-28 20:47 | XMS_ITS | Clinical Summary ---
Author Organization [facility] Address [facility] [place] [address] Care Team Providers Care Flow Trader Name Role Phone Scotty Shepard MD Primary Care Provider [phone] Allergies Active Allergy Reactions Criticality Noted Date [...] by mouth 2 (two) times a day 3 Active apixaban (ELIQUIS) 5 mg tabletIndication s:atrial fibrillation Take 1 tablet (5 mg total) by mouth 2 (two) times a day 60 tablet 4 Active flecainide (TAMBOCOR) 50 mg tablet Take 1 tablet (50 mg total) by mouth [address] (PROTONIX) 40 mg EC tablet Take 1 tablet (40 mg total) by mouth daily 90 tablet 3 4 025 Active amitriptyline (ELAVIL) 10 mg tablet Take half tab daily 45 tablet 5 Active ALPRAZolam (XANAX) 0.5 mg tablet TAKE 1 TABLET TWICE A DAY 60 tablet 2 5 Active ALPRAZolam (XANAX) 0.5 mg tablet TAKE 1 TABLET TWICE A DAY 60 tablet 2 5 025 Discontinued Active Problems Problem Noted Date Diagnosed Date Routine general medical exam ination at a health care facility 06/02/2025 Assessment & Plan (06/02/2025 2:38 PM CDT): Due for Shingrix (shingles-2 doses), RSV and Tdap (tetanus and pertussis) Labs the week of 06/20- as this will be within 30 days of upcoming surgery Continue 150 min/weekly of moderate intensity activity Limit 1 EtOH/daily MADISYN (generalized anxiety disorder) 05/23/2021 Assessment & Plan (02/26/2024 11:33 AM CDT): Is on Elavil 5mg HS I have sent 90 days (45 tabs) of this with 3 refills to [facility] to avoid the future issues with refills Assessment & Plan (11/27/2023 3:30 PM SAMPLE TESTER GRINDER): Trial Elavil 10mg HS Assessment & Plan (05/28/2023 12:00 PM CDT): Using Xanax 0.25mg HS and PRN - continue (discussed use, safety, s/e and dependency risks) Counseling We discussed possible SSRI/SRNI use, declines at this time Assessment & Plan (10/16/2022 2:40 PM SAMPLE TESTER GRINDER): Elevated BP most certainly related to elevated [...] 02/26/2024 Assessment & Plan (11/27/2023 3:28 PM SAMPLE TESTER GRINDER): Mupirocin x 1 week Encounters Date Type Department Care Team Description 06/02/2025 2:00 PM CDT Office Visit [facility] [address] [place] [address] [place] [phone] Betty Sofia NP IFG (impaired fasting glucose) (Primary Dx); Pure hypercholesterolemia; Vitamin D deficiency; Routine general medical examination at a health care facility 06/02/2025 Telephone [facility] [address] [place] [address] [place] [phone] Scotty Shepard MD surgical History and physical from Last 3 Months Immunizations Immunization Administration [...] on file Legal Sex Female 3:03 AM SAMPLE TESTER GRINDER Gender Identity Female 09/18/2023 1:09 PM SAMPLE TESTER GRINDER Sexual Orientation Not on file Obstetrics History Last Filed Vital Signs Vital Sign Reading Time Taken Comments Blood Pressure 136/84 06/02/2025 2:15 PM CDT Pulse 73 06/02/2025 2:15 PM CDT Temperature 36.4 C (97.5 F) 02/22/2022 2:34 PM CDT Respiratory Rate 16 02/22/2022 2:34 PM CDT Oxygen Saturation 95% 06/02/2025 2:15 PM CDT Inhaled Oxygen Concentration - - Weight 95.3 kg (210 lb) 06/02/2025 2:15 PM CDT Height 165.1 cm (5' 5) 06/02/2025 2:15 PM CDT Body Mass Index 34.95 06/02/2025 2:15 PM CDT Plan of Treatment Scheduled Procedures Name [...] - PCV20 or PCV21) 08/15/2022 08/15/2017, 10/10/2016 Depression Screening 09/25/2024 09/25/2023 Fall Risk Assessment 09/25/2024 09/25/2023, 02/23/20 22 Influenza Vaccine (#1) 2025 8, 08/15/2017, 10/10/2016, Additional history exists Well Visit 65+ 06/02/2026 06/02/2025, 09/25/2023 DTaP/Tdap/Td Vaccine (3 - Td or Tdap) 11/23/2029 11/23/2019, 05/04/2013 Procedures Procedure Name Priority Date/Time Associated Diagnosis Comments POCT LIPID PANEL Routine 06/02/2025 2:17 PM CDT Pure hypercholesterolemia POCT HEMOGLOBIN A1C Routine 06/02/2025 2:16 PM CDT IFG (impaired fasting glucose) POCT GLUCOSE [id number] Routine 06/02/2025 2:16 PM CDT IFG (impaired fasting glucose) from Last 3 Months Results * (ABNORMAL) POCT lipid panel (06/02/2025 2:17 PM CDT) HDL, POC 52 >=40 mg/dL Triglycerides, POC 122 <=149 mg/dL LDL Cholesterol POC 153(A) <=129 mg/dL Chol/HDL Ratio, POC 4.4 NONE Non-HDL Cholesterol, POC 177 NONE mg/dL Cholesterol Total, POC 229(A) 30 - 199 mg/dL Capillary blood 06/02/2025 2 :17 PM CDT Betty Sofia NP POINT OF CARE TEST ORDER JOSE Final Result * POCT glucose (06/02/2025 2:16 PM CDT) Glucose Blood, POC 88 Normal Fasting 70 - 100, Random <200 mg/dL Blood 06/02/2025 2:16 PM CDT Betty Sofia BIGHT MAKER POINT OF CARE TEST ORDER JOSE Final Result * (ABNORMAL) POCT hemoglobin A1c (06/02/2025 2:16 PM CDT) Hemoglobin A1C, POC 5.8(A) 4.0 - 5.6 % Blood 06/02/2025 2:16 PM CDT Betty Sofia BIGHT MAKER POINT OF CARE TEST ORDER JOSE Final Result from Last 3 Months Insurance [facility] MEDICARE BLUE ACC CHOICE OOS [employer] ACCESS OOS MEDICARE Care Teams Flow Trader Relationship Specialty Start Date End Date Scotty Shepard MD PCP - General Internal Medicine 06/01/18
== END 2025-06-28 20:53 | disposition left against medical advice (07) ==
LOC: ANHED 20:52
PROVIDERS: PCP Internal Medicine
DX: Z53.21 Procedure and treatment not carried out due to patient leaving prior to being seen by health care provider (principal)
CPT/HCPCS: 99199